=== PATIENT | female | born 1960 | race Caucasian/White ===

== ENCOUNTER → 2017-09-29 08:12 | Outpatient (CLI) | payer BC, SELFPAY ==
--- NOTE | 2017-09-29 08:14 | HPBI_ITS ---
MAMMOGRAPHY - BILATERAL SCREENING 3-D DESMOND SYNTHESIS REASON FOR EXAM: Female, 57 years old. Bilateral Screening 3-D tomosynthesis PERTINENT HISTORY: Previous reduction surgery. TECHNIQUE: 2-D mammograms and 3-D Desmond synthesis of the breast (s) were performed. CAD was performed. COMPARISON: 09/21/2016 FINDINGS: The breast composition is composed of scattered fibroglandular density. There is architectural distortion in both breasts and previous reduction surgery. Scattered benign calcifications are seen. No dense spiculated masses or suspicious microcalcifications are identified. No architectural distortion is identified. There is no skin thickening or retraction. There has been no significant change since the prior study. HPBI/SCREENING MAMM (CAD), BILAT IMPRESSION: No mammographic signs of malignancy. Routine yearly mammograms recommended. ASSESSMENT CATEGORY: BIRADS Category 2: Benign. A letter regarding these results will be sent to the patient by the facility within 30 days. FOLLOW UP RECOMMENDATION: Yearly follow up mammogram recommended. (A) Approximately 10% of breast cancers are not detected by mammography. A normal mammogram should not delay biopsy of a clinically suspicious abnormality. Electronically Signed: Cheng Coppola MD at 10:03 EDT , Service support ,
== END ==
PROVIDERS: Visit Provider Nurse Practitioner Women's Health
DX: Z12.31 Encounter for screening mammogram for malignant neoplasm of breast (principal)
CPT/HCPCS: 77063; 77067

== ENCOUNTER → 2017-10-31 07:31 | Outpatient (CLI) | payer BC, SELFPAY ==
[2017-10-31 11:01] LABS: Anion Gap 8 (5-15); BUN 13 mg/dL (7-18); BUN/Creat Ratio 18.5 RATIO (10-20); Calcium,Total 8.8 mg/dL (8.5-10.1); Chloride 99 mmol/L (98-107); Cholesterol 139 mg/dL (200); EST Glomerular Filtration Rate 91 mL/min (>60); Est Glom Filt Rate - Afr Amer 110 mL/min (>60); Glucose 80 mg/dL (74-106); High Density Lipoprotein 66 mg/dL; Potassium 3.6 mmol/L (3.5-5.1); Sodium Level 133 mmol/L (136-145); Thyroid Stim Hormone (TSH) 2.39 uIU/mL (0.358-3.74); Triglycerides 57 mg/dL; Very Low Density Lipoprotein 11 mg/dL (5-40)
== END ==
PROVIDERS: PCP Family Medicine; Visit Provider Nurse Practitioner Adult Health
DX: E78.5 Hyperlipidemia, unspecified (principal); E03.9 Hypothyroidism, unspecified; Z13.1 Encounter for screening for diabetes mellitus
CPT/HCPCS: 36415; 80048; 80061; 84443

== ENCOUNTER → 2018-04-07 07:01 | Outpatient (CLI) | payer BC, SELFPAY ==
[2018-04-07 10:38] LABS: AST(SGOT) 22 U/L (15-37); Alanine Aminotransfer ALT/SGPT 34 U/L (13-56); Alkaline Phosphatase 90 U/L (45-117); Anion Gap 9 (5-15); BUN 18 mg/dL (7-18); BUN/Creat Ratio 26.6 RATIO (10-20); Calcium,Total 9.5 mg/dL (8.5-10.1); Chloride 102 mmol/L (98-107); Cholesterol 188 mg/dL (200); Creatinine, Serum 0.68 mg/dL (0.55-1.02); EST Glomerular Filtration Rate 95 mL/min (>60); Est Glom Filt Rate - Afr Amer 114 mL/min (>60); Glucose 87 mg/dL (74-106); High Density Lipoprotein 76 mg/dL; Lipase 128 U/L (73-393); Potassium 3.9 mmol/L (3.5-5.1); Sodium Level 139 mmol/L (136-145); Thyroid Stim Hormone (TSH) 3.25 uIU/mL (0.358-3.74); Triglycerides 69 mg/dL; Very Low Density Lipoprotein 14 mg/dL (5-40)
== END ==
PROVIDERS: Family Provider Family Medicine; PCP Family Medicine; Referring Provider Family Medicine; Visit Provider Family Medicine
DX: K76.0 Fatty (change of) liver, not elsewhere classified (principal); E78.00 Pure hypercholesterolemia, unspecified; E03.9 Hypothyroidism, unspecified
CPT/HCPCS: 36415; 80053; 80061; 83690; 84443

== ENCOUNTER → 2018-04-08 08:38 | Outpatient (CLI) | payer BC, SELFPAY ==
--- NOTE | 2018-04-08 08:42 | US_ITS ---
STUDY: ABDOMINAL ULTRASOUND - RIGHT UPPER QUADRANT REASON FOR VISIT: Female, 57 years old. Abdominal pain. TECHNIQUE: Ultrasound evaluation of the right upper quadrant was performed with real-time and static rizo-scale imaging. TECHNICAL QUALITY: Adequate. COMPARISON: None. FINDINGS: Liver: The liver measures 12.3 cm. There is normal echogenicity of the liver. The bile ducts are within normal limits. There is hepatic color flow. The direction of portal flow is hepatopetal. There is no demonstrated mass lesion. Gallbladder: Normal distended gallbladder. The gallbladder wall measures 2.0 mm. There is a negative sonographic Carrizales's sign. There is no pericholecystic fluid. There are no gallstones. Common Bile Duct (C.B.D.): The common bile duct measures 3.2 mm. Pancreas: Normal size of the head, body and tail of the pancreas. There is normal echogenicity of the pancreas. There is no demonstrated pancreatic mass or cyst. Right Kidney: Normal size of the right kidney. The right kidney measures 9.8 cm in length. Normal renal cortex. There is a 4 mm calcific density within the right renal cortex. There is no demonstrated renal mass or cyst. There is no right hydronephrosis. US/Abdomen Limited IMPRESSION: 4 mm calcification within the right renal cortex, this may be vascular in nature. No specific sonographic findings to explain abdominal pain. Electronically Signed: Merari Ferguson MD at 16:53 EDT Tel , Service support ,
== END ==
PROVIDERS: Family Provider Family Medicine; PCP Family Medicine; Referring Provider Family Medicine; Visit Provider Family Medicine
DX: K76.0 Fatty (change of) liver, not elsewhere classified (principal)
CPT/HCPCS: 76705

== ENCOUNTER → 2018-05-18 11:27 | Outpatient (CLI) | payer BC, SELFPAY ==
--- NOTE | 2018-05-18 11:35 | RAD_ITS ---
STUDY: X-RAY - ABDOMEN/PELVIS REASON FOR EXAM: Female, 57 years old. Recent colonoscopy. Left-sided abdominal pain after procedure chest since worse. TECHNIQUE: AP supine and upright views of the abdomen and pelvis. COMPARISON: None. FINDINGS: Normal visualized lung bases. There is a large amount of feces throughout the colon without distention. There is no small bowel dilatation. There is no demonstrated free abdominal air. The visualized liver, spleen and kidneys are grossly normal in size and morphology. Normal soft tissue structures. There are diffuse degenerative changes of the visualized lumbar spine. RAD/Abd Inc Decub and/or Erect IMPRESSION: Large amount of colonic feces without obstruction or evidence of free air. Electronically Signed: Yg Richardson DO at 19:20 EST Tel [phone], Service support ,
== END ==
PROVIDERS: Family Provider Family Medicine; PCP Family Medicine; Referring Provider Family Medicine; Visit Provider Family Medicine
DX: R10.12 Left upper quadrant pain (principal)
CPT/HCPCS: 74019

== ENCOUNTER → 2018-10-20 12:51 | Outpatient (CLI) | payer BC, SELFPAY ==
[2018-06-25 14:02] VITALS: BMI 30.5
--- NOTE | 2018-10-20 12:53 | BI_ITS ---
MAMMOGRAPHY - BILATERAL SCREENING REASON FOR EXAM: Female, 58 years old. Routine annual screening examination. PERTINENT HISTORY: Non-contributory. History of bilateral breast reduction surgery. TECHNIQUE: Digital bilateral breast desmond (3D mammographic acquisition) in the CC and MLO projections. 2-D mediolateral oblique (MLO) and craniocaudad (CC) views of both breasts were obtained. CAD: Full Field Digital Mammography with Computer Added Detection was performed. COMPARISON: Comparison is made with prior study from September 29, 2017. FINDINGS: Breast Composition: There are scattered areas of fibroglandular density. There are no dominant masses or suspicious calcifications. Stable benign-appearing bilateral axillary lymph nodes. No other significant abnormalities are identified. There has been no significant change since the prior study. BI/SCREEN MAMM (CAD) W/DESMOND BILAT IMPRESSION: Stable bilateral screening mammogram. Yearly follow-up mammogram recommended. (A) ASSESSMENT CATEGORY: BIRADS Category 2: Benign. A letter regarding these results will be sent to the patient by the facility within 30 days. Approximately 10% of breast cancers are not detected by mammography. A normal mammogram should not delay biopsy of a clinically suspicious abnormality. [id number] Electronically Signed: Oliverio Vela, at 15:49 EDT , Service support ,
== END ==
PROVIDERS: Family Provider Family Medicine; PCP Family Medicine; Referring Provider Obstetrics & Gynecology; Visit Provider Obstetrics & Gynecology
DX: Z12.31 Encounter for screening mammogram for malignant neoplasm of breast (principal)
CPT/HCPCS: 77063; 77067

== ENCOUNTER → 2018-11-18 08:07 | Outpatient (CLI) | payer BC, SELFPAY ==
[2018-06-25 14:02] VITALS: BMI 30.5
[2018-11-18 10:40] LABS: Anion Gap 6 (5-15); BUN 23 mg/dL (7-18); BUN/Creat Ratio 27.6 RATIO (10-20); Calcium,Total 9.1 mg/dL (8.5-10.1); Chloride 99 mmol/L (98-107); Cholesterol 164 mg/dL (200); Creatinine, Serum 0.83 mg/dL (0.55-1.02); EST Glomerular Filtration Rate 74 mL/min (>60); Est Glom Filt Rate - Afr Amer 90 mL/min (>60); Glucose 88 mg/dL (74-106); High Density Lipoprotein 58 mg/dL; Potassium 3.7 mmol/L (3.5-5.1); Sodium Level 134 mmol/L (136-145); Thyroid Stim Hormone (TSH) 2.45 uIU/mL (0.358-3.74); Triglycerides 95 mg/dL; Very Low Density Lipoprotein 19 mg/dL (5-40)
== END ==
PROVIDERS: Family Provider Family Medicine; PCP Family Medicine; Referring Provider Nurse Practitioner Adult Health; Visit Provider Nurse Practitioner Adult Health
DX: E78.00 Pure hypercholesterolemia, unspecified (principal); E03.9 Hypothyroidism, unspecified; Z13.1 Encounter for screening for diabetes mellitus
CPT/HCPCS: 36415; 80048; 80061; 84443

== ENCOUNTER → 2018-11-24 08:00 | Outpatient (CLI) | payer BC, SELFPAY ==
[2018-06-25 14:02] VITALS: BMI 30.5
--- NOTE | 2018-11-24 08:10 | BD_ITS ---
STUDY: DUAL ENERGY X-RAY ABSORPTIOMETRY / DXA REASON FOR EXAM: Female, 58 years old. The patient is postmenopausal. Loss of height. TECHNIQUE: Bone Mineral Density (BMD) measurements of lumbar spine and bilateral hips were obtained. COMPARISON: None. FINDINGS: Lumbar Spine (L1-L4): g/cm2 (1.031) / T-score (-1.1) / Z-score (0.1) Findings are suggestive of osteopenia with a low fracture risk. Left Femur Total: g/cm2 (0.850) / T-score (-1.3) / Z-score (-0.3) Left Femoral Neck: g/cm2 (0.793) / T-score (-1.8) / Z-score (-0.5) Right Femur Total: g/cm2 (0.829) / T-score (-1.4) / Z-score (-0.5) Right Femoral Neck: g/cm2 (0.841) / T-score (-1.4) / Z-score (-0.2) BD/Dexa Bone Density Study IMPRESSION: The patient is considered osteopenic as outlined below according to World Yaw Organization (WHO) criteria with a moderate fracture risk. Reference Information: The T-score is the number of standard deviations above or below the standard which is normal for young adults at their peak bone mineral density. The World Health Organization (WHO) interprets the T-scores as follows: Above -1 Normal bone density Between -1 and -2.5 Osteopenia Equal to / or below -2.5 Osteoporosis As a practical clinical guideline, osteopenia may be graded as follows: Mild -1 through -1.5 Moderate -1.6 through -2.0 Severe -2.1 through -2.4 The Z-score is the number of standard deviations above or below age-matched controls. A Z-score of less than -1.5 would be considered abnormal. References: 1. NIH Osteoporosis and Related Bone Diseases http://www.osteo.org 2. International Society for Clinical Densitometry http://www.iscd.org 3. National Osteoporosis Foundation http://www.nof.org Electronically Signed: Oliverio Vela, at 12:42 EDT , Service support ,
== END ==
PROVIDERS: Family Provider Family Medicine; PCP Family Medicine; Referring Provider Nurse Practitioner Adult Health; Visit Provider Nurse Practitioner Adult Health
DX: Z78.0 Asymptomatic menopausal state (principal)
CPT/HCPCS: 77080

== ENCOUNTER → 2019-11-01 10:36 | Outpatient (CLI) | payer OTHER, SELFPAY ==
[2018-06-25 14:02] VITALS: BMI 30.5
--- NOTE | 2019-11-01 10:37 | BI_ITS ---
MAMMOGRAPHY - BILATERAL SCREENING REASON FOR EXAM: Female, 59 years old. Routine annual screening examination. PERTINENT HISTORY: Non-contributory. History of bilateral breast reduction surgery. TECHNIQUE: Digital bilateral breast desmond (3D mammographic acquisition) in the CC and MLO projections. 2-D mediolateral oblique (MLO) and craniocaudad (CC) views of both breasts were obtained. CAD: Full Field Digital Mammography with Computer Added Detection was performed. COMPARISON: Comparison is made with prior study dated October 20, 2018 and September 29, 2017. FINDINGS: Breast Composition: There are scattered areas of fibroglandular density. There are no dominant masses or suspicious calcifications. No other significant abnormalities are identified. There has been no significant change since the prior study. BI/SCREEN MAMM (CAD) W/DESMOND BILAT IMPRESSION: Stable bilateral screening mammogram. Yearly follow-up mammogram recommended. (A) ASSESSMENT CATEGORY: BIRADS Category 1: Negative. A letter regarding these results will be sent to the patient by the facility within 30 days. Approximately 10% of breast cancers are not detected by mammography. A normal mammogram should not delay biopsy of a clinically suspicious abnormality. [id number] Electronically Signed: Oliverio Vela, at 11:36 EDT , Service support ,
== END ==
PROVIDERS: PCP Family Medicine; Referring Provider Obstetrics & Gynecology; Visit Provider Obstetrics & Gynecology
DX: Z12.31 Encounter for screening mammogram for malignant neoplasm of breast (principal)
CPT/HCPCS: 77063; 77067

== ENCOUNTER → 2019-11-22 09:55 | Outpatient (CLI) | payer OTHER, SELFPAY ==
[2018-06-25 14:02] VITALS: BMI 30.5
[2019-11-22 12:53] LABS: Anion Gap 10 (5-15); BUN 24 mg/dL (7-18); BUN/Creat Ratio 31.8 RATIO (10-20); Calcium,Total 9.3 mg/dL (8.5-10.1); Chloride 100 mmol/L (98-107); Cholesterol 217 mg/dL (200); Creatinine, Serum 0.76 mg/dL (0.55-1.02); EST Glomerular Filtration Rate 83 mL/min (>60); Est Glom Filt Rate - Afr Amer 100 mL/min (>60); Glucose 87 mg/dL (74-106); High Density Lipoprotein 77 mg/dL; Magnesium 2.3 mg/dL (1.6-2.6); Sodium Level 137 mmol/L (136-145); Thyroid Stim Hormone (TSH) 1.32 uIU/mL (0.358-3.74); Triglycerides 74 mg/dL; Very Low Density Lipoprotein 15 mg/dL (5-40)
== END ==
PROVIDERS: Nurse Practitioner Adult Health; PCP Family Medicine; Visit Provider Family Medicine
DX: E03.9 Hypothyroidism, unspecified (principal); E83.42 Hypomagnesemia; Z13.220 Encounter for screening for lipoid disorders; Z13.1 Encounter for screening for diabetes mellitus
CPT/HCPCS: 36415; 80048; 80061; 83735; 84443

== ENCOUNTER → 2020-06-22 12:36 | Outpatient (CLI) | payer OTHER, SELFPAY ==
[2020-06-22 10:04] VITALS: BMI 27.5
[2020-06-26 20:49] LABS: HPV APTIMA, High Risk Negative (Negative)
== END ==
PROVIDERS: PCP Family Medicine; Visit Provider Nurse Practitioner Women's Health
DX: Z12.4 Encounter for screening for malignant neoplasm of cervix (principal)
CPT/HCPCS: 87624; 88175; G0145

== ENCOUNTER → 2020-11-30 11:57 | Outpatient (CLI) | payer OTHER, SELFPAY ==
[2020-06-22 10:04] VITALS: BMI 27.5
--- NOTE | 2020-11-30 12:00 | BI_ITS ---
MAMMOGRAPHY - BILATERAL SCREENING REASON FOR EXAM: Female, 60 years old. Routine annual screening examination. PERTINENT HISTORY: Non-contributory. History of prior bilateral breast reduction and breast lift surgery. TECHNIQUE: Digital bilateral breast desmond (3D mammographic acquisition) in the CC and MLO projections. 2-D mediolateral oblique (MLO) and craniocaudad (CC) views of both breasts were obtained. CAD: Full Field Digital Mammography with Computer Added Detection was performed. COMPARISON: Comparison is made with prior study dated 11/01/2019 and 10/20/2018. FINDINGS: Breast Composition: There are scattered areas of fibroglandular density. There are no dominant masses or suspicious calcifications. No other significant abnormalities are identified. There has been no significant change since the prior study. BI/SCRN MAMM (CAD)W/DESMOND BILAT IMPRESSION: Stable bilateral screening mammogram. Yearly follow-up mammogram recommended. (A) ASSESSMENT CATEGORY: BIRADS Category 1: Negative. A letter regarding these results will be sent to the patient by the facility within 30 days. Approximately 10% of breast cancers are not detected by mammography. A normal mammogram should not delay biopsy of a clinically suspicious abnormality. [id number] Electronically Signed: Oliverio Vela MD at 13:15 EDT , Service support ,
[2020-11-30 17:51] LABS: Hemoglobin A1c 5.2 % (3.8-5.6)
[2020-11-30 18:00] LABS: Cholesterol 166 mg/dL (200); High Density Lipoprotein 80 mg/dL; T4 Free Direct 1.45 ng/dL (0.76-1.46); Triglycerides 65 mg/dL; Very Low Density Lipoprotein 13 mg/dL (5-40)
== END ==
PROVIDERS: Nurse Practitioner Family; PCP Family Medicine; Referring Provider Nurse Practitioner Women's Health; Visit Provider Nurse Practitioner Women's Health
DX: Z12.31 Encounter for screening mammogram for malignant neoplasm of breast (principal); Z13.1 Encounter for screening for diabetes mellitus; E03.9 Hypothyroidism, unspecified; E78.00 Pure hypercholesterolemia, unspecified
CPT/HCPCS: 36415; 77063; 77067; 80061; 83036; 84439; 84443

== ENCOUNTER → 2021-12-04 | Outpatient (CLI) | payer OTHER, SELFPAY ==
--- NOTE | 2021-12-04 10:21 | BI_ITS ---
MAMMOGRAPHY - BILATERAL SCREENING REASON FOR EXAM: Female, 61 years old. Routine annual screening examination. PERTINENT HISTORY: Non-contributory. History of prior bilateral breast reduction surgery. TECHNIQUE: Digital bilateral breast desmond (3D mammographic acquisition) in the CC and MLO projections. 2-D mediolateral oblique (MLO) and craniocaudad (CC) views of both breasts were obtained. CAD: Full Field Digital Mammography with Computer Added Detection was performed. COMPARISON: Comparison is made with prior study of 11/30/2020 and 11/01/2019. FINDINGS: Breast Composition: There are scattered areas of fibroglandular density. There are no dominant masses or suspicious calcifications. Stable small benign-appearing bilateral axillary lymph nodes. No other significant abnormalities are identified. There has been no significant change since the prior study. BI/SCRN MAMM (CAD)W/DESMOND BILAT IMPRESSION: Stable bilateral screening mammogram. Yearly follow-up mammogram recommended. (A) ASSESSMENT CATEGORY: BIRADS Category 2: Benign. A letter regarding these results will be sent to the patient by the facility within 30 days. Approximately 10% of breast cancers are not detected by mammography. A normal mammogram should not delay biopsy of a clinically suspicious abnormality. [id number] Electronically Signed: Oliverio Vela MD at 11:48 EDT ,
== END | disposition home or self-care (01) ==
LOC: OPBI 10:20
PROVIDERS: PCP Family Medicine; Visit Provider Obstetrics & Gynecology
DX: Z12.31 Encounter for screening mammogram for malignant neoplasm of breast (principal)
CPT/HCPCS: 77063; 77067

== ENCOUNTER → 2021-12-06 | Outpatient (CLI) | payer OTHER, SELFPAY ==
[2021-12-06 11:56] LABS: Bacteria 0 SEEN /hpf (None Seen); Mucous, Urine 0 SEEN /hpf (<or=2+); Red Blood Cells-Urine 0 SEEN /hpf (0-5); Squamous Epithelial Cells - UA 0 SEEN /hpf (5-10)
[2021-12-06 14:17] LABS: Anion Gap 6 (5-15); BUN 22 mg/dL (7-18); BUN/Creat Ratio 24.6 RATIO (10-20); Calcium,Total 9.2 mg/dL (8.5-10.1); Chloride 104 mmol/L (98-107); Cholesterol 222 mg/dL (200); EST Glomerular Filtration Rate 68 mL/min (>60); Est Glom Filt Rate - Afr Amer 82 mL/min (>60); Glucose 83 mg/dL (74-106); High Density Lipoprotein 84 mg/dL; Sodium Level 137 mmol/L (136-145); T4 Free Direct 1.15 ng/dL (0.76-1.46); Thyroid Stim Hormone (TSH) 1.15 uIU/mL (0.358-3.74); Triglycerides 90 mg/dL; Very Low Density Lipoprotein 18 mg/dL (5-40)
[2021-12-06 15:53] LABS: Color, Urine Yellow (Yellow); Glucose, Dipstick Normal (Normal); Ketone-Dipstick Negative (Negative); Leukocyte Esterase-Dipstick 500 /ul (Negative); Nitrite-Dipstick Negative (Negative); Occult Blood-Urine Negative /ul (Negative); Protein-Dipstick Negative (Negative); Specific Gravity, Urine 1.005 (1.002-1.030); Urine Bilirubin Dipstick Negative (Negative); Urine Clarity Clear (Clear); Urine Urobilinogen Normal (Normal)
[2021-12-06 16:14] LABS: White Blood Cells 0-5 SEEN /hpf (0-5)
== END | disposition home or self-care (01) ==
LOC: MFPLAB 11:07
PROVIDERS: PCP Family Medicine; Visit Provider Nurse Practitioner Family
DX: R35.0 Frequency of micturition (principal); I10 Essential (primary) hypertension; E78.00 Pure hypercholesterolemia, unspecified; E03.9 Hypothyroidism, unspecified
CPT/HCPCS: 36415; 80048; 80061; 81001; 84439; 84443; 87086; 87088

== ENCOUNTER → 2022-05-03 | Outpatient (CLI) | payer OTHER, SELFPAY | END | disposition home or self-care (01) | PROVIDERS: PCP Family Medicine; Visit Provider Otolaryngology | DX: J32.9 Chronic sinusitis, unspecified (principal) | CPT/HCPCS: 87070; 87077; 87205 ==

== ENCOUNTER → 2022-11-11 | Outpatient (CLI) | payer OTHER, SELFPAY ==
[2022-11-19 15:08] LABS: HPV APTIMA, High Risk Negative (Negative)
== END | disposition home or self-care (01) ==
LOC: LABSPEC 16:58
PROVIDERS: PCP Family Medicine; Referring Provider Nurse Practitioner Women's Health; Visit Provider Nurse Practitioner Women's Health
DX: Z01.419 Encounter for gynecological examination (general) (routine) without abnormal findings (principal)
CPT/HCPCS: 87624; 88175; G0145

== ENCOUNTER → 2022-12-05 | Outpatient (CLI) | payer OTHER, SELFPAY ==
--- NOTE | 2022-12-05 10:45 | BI_ITS ---
MAMMOGRAPHY - BILATERAL SCREENING REASON FOR EXAM: Female, 62 years old. Routine annual screening examination. PERTINENT HISTORY: Non-contributory. History of prior bilateral breast reduction surgery. TECHNIQUE: Digital bilateral breast desmond (3D mammographic acquisition) in the CC and MLO projections. 2-D mediolateral oblique (MLO) and craniocaudad (CC) views of both breasts were obtained. CAD: Full Field Digital Mammography with Computer Added Detection was performed. COMPARISON: Comparison is made with prior examination of December 04, 2021 and November 30, 2020. FINDINGS: Breast Composition: There are scattered areas of fibroglandular density. There are no dominant masses or suspicious calcifications. No other significant abnormalities are identified. There has been no significant change since the prior study. BI/SCRN MAMM (CAD)W/DESMOND BILAT IMPRESSION: Stable bilateral screening mammogram. Yearly follow-up mammogram recommended. (A) ASSESSMENT CATEGORY: BIRADS Category 1: Negative. A letter regarding these results will be sent to the patient by the facility within 30 days. Approximately 10% of breast cancers are not detected by mammography. A normal mammogram should not delay biopsy of a clinically suspicious abnormality. [id number] Electronically Signed: Oliverio Vela MD at 12:01 EDT ,
== END | disposition home or self-care (01) ==
PROVIDERS: PCP Family Medicine; Referring Provider Nurse Practitioner Women's Health; Visit Provider Nurse Practitioner Women's Health
DX: Z12.31 Encounter for screening mammogram for malignant neoplasm of breast (principal)
CPT/HCPCS: 77063; 77067

== ENCOUNTER → 2022-12-13 | Outpatient (CLI) | payer OTHER, SELFPAY ==
[2022-12-13 15:38] LABS: Hematocrit 43.8 % (37-47); Hemoglobin 14.2 g/dL (12.0-15.0); Mean Corp Hgb Conc 32.4 g/dL (32-36); Mean Corpuscular Hgb 29.3 pg (27.0-32.0); Mean Corpuscular Volume 90.5 fL (81-99); Mean Platelet Vol. 12.9 fl (6.2-12.0); Platelet Count 356 K/mm3 (150-450); RBC Distribution Width CV 14.2 % (11.6-14.6); RBC Distribution Width SD 47.1 fl (35.1-43.9); Red Blood Count 4.84 M/mm3 (4.2-5.4); White Blood Count 7.3 K/mm3 (4.4-11.0)
[2022-12-13 16:12] LABS: Anion Gap 7 (5-15); BUN 20 mg/dL (7-18); BUN/Creat Ratio 25.2 RATIO (10-20); Calcium,Total 9.5 mg/dL (8.5-10.1); Chloride 98 mmol/L (98-107); Cholesterol 205 mg/dL (200); EST Glomerular Filtration Rate 77 mL/min (>60); Est Glom Filt Rate - Afr Amer 93 mL/min (>60); Free T3 2.8 pg/mL (2.18-3.98); Glucose 84 mg/dL (74-106); High Density Lipoprotein 82 mg/dL; Potassium 4.1 mmol/L (3.5-5.1); Sodium Level 132 mmol/L (136-145); T4 Free Direct 1.24 ng/dL (0.76-1.46); Thyroid Stim Hormone (TSH) 1.34 uIU/mL (0.358-3.74); Triglycerides 64 mg/dL; Very Low Density Lipoprotein 13 mg/dL (5-40)
[2022-12-13 16:29] LABS: Microalbumin,Random Urine < 5.0 mg/L (NO RANGE EST.)
[2022-12-13 17:21] LABS: Hemoglobin A1c 5.5 % (3.8-5.6)
== END | disposition home or self-care (01) ==
LOC: MFPLAB 12:00
PROVIDERS: PCP Family Medicine; Visit Provider Family Medicine
DX: I10 Essential (primary) hypertension (principal); E66.9 Obesity, unspecified; E03.9 Hypothyroidism, unspecified; E78.5 Hyperlipidemia, unspecified
CPT/HCPCS: 36415; 80048; 80061; 82043; 82570; 83036; 84439; 84443; 84481; 85027

== ENCOUNTER → 2023-03-13 | Outpatient (CLI) | payer OTHER, SELFPAY ==
[2023-03-13 12:55] LABS: Anion Gap 6 (5-15); BUN 17 mg/dL (7-18); BUN/Creat Ratio 20.2 RATIO (10-20); Chloride 102 mmol/L (98-107); Creatinine, Serum 0.84 mg/dL (0.55-1.02); EST Glomerular Filtration Rate 72 mL/min (>60); Est Glom Filt Rate - Afr Amer 88 mL/min (>60); Glucose 91 mg/dL (74-106); Potassium 3.9 mmol/L (3.5-5.1); Sodium Level 134 mmol/L (136-145)
== END | disposition home or self-care (01) ==
LOC: MTLAB 10:03
PROVIDERS: PCP Family Medicine; Visit Provider Family Medicine
DX: K76.0 Fatty (change of) liver, not elsewhere classified (principal)
CPT/HCPCS: 36415; 80048

== ENCOUNTER → 2023-06-19 | Outpatient (CLI) | payer MEDICARE, OTHER, SELFPAY ==
[2023-06-19 16:00] LABS: Osmolality, Serum 298 mOsm/KG (280-301)
[2023-06-19 16:19] LABS: Anion Gap 5 (5-15); BUN 24 mg/dL (7-18); BUN/Creat Ratio 27.2 RATIO (10-20); Calcium,Total 9.5 mg/dL (8.5-10.1); Chloride 102 mmol/L (98-107); Creatinine, Serum 0.88 mg/dL (0.55-1.02); EST Glomerular Filtration Rate 68 mL/min (>60); Est Glom Filt Rate - Afr Amer 83 mL/min (>60); Free T3 3.5 pg/mL (2.18-3.98); Glucose 80 mg/dL (74-106); Magnesium 2.6 mg/dL (1.6-2.6); Potassium 4.4 mmol/L (3.5-5.1); Sodium Level 135 mmol/L (136-145); T4 Free Direct 1.35 ng/dL (0.76-1.46); Thyroid Stim Hormone (TSH) 0.99 uIU/mL (0.358-3.74)
== END | disposition home or self-care (01) ==
LOC: MFPLAB 11:39
PROVIDERS: PCP Family Medicine; Visit Provider Family Medicine
DX: E87.1 Hypo-osmolality and hyponatremia (principal); E03.9 Hypothyroidism, unspecified; I10 Essential (primary) hypertension; R63.5 Abnormal weight gain
CPT/HCPCS: 36415; 80048; 82533; 82627; 83735; 83930; 84439; 84443; 84481; 82626

== ENCOUNTER → 2023-12-25 | Outpatient (CLI) | payer MEDICARE, OTHER, SELFPAY ==
--- NOTE | 2023-12-25 10:04 | BI_ITS ---
MAMMOGRAPHY - BILATERAL SCREENING REASON FOR EXAM: Female, 63 years old. Routine annual screening examination. PERTINENT HISTORY: Sister with breast cancer. History of prior bilateral breast reduction surgery. TECHNIQUE: Digital bilateral breast desmond (3D mammographic acquisition) in the CC and MLO projections. 2-D mediolateral oblique (MLO) and craniocaudad (CC) views of both breasts were obtained. CAD: Full Field Digital Mammography with Computer Added Detection was performed. COMPARISON: Comparison is made with prior study dated December 05, 2022 and December 04, 2021. FINDINGS: Breast Composition: There are scattered areas of fibroglandular density. There are no dominant masses or suspicious calcifications. Stable small benign-appearing lateral axillary lymph nodes. No other significant abnormalities are identified. There has been no significant change since the prior study. BI/SCRN MAMM (CAD)W/DESMOND BILAT IMPRESSION: Stable bilateral screening mammogram. Yearly follow-up mammogram recommended. (A) ASSESSMENT CATEGORY: BIRADS Category 2: Benign. A letter regarding these results will be sent to the patient by the facility within 30 days. Approximately 10% of breast cancers are not detected by mammography. A normal mammogram should not delay biopsy of a clinically suspicious abnormality. [id number] Electronically Signed: Oliverio Vela MD at 10:48 EDT ,
== END | disposition home or self-care (01) ==
LOC: OPBI 10:04
PROVIDERS: PCP Family Medicine; Referring Provider Nurse Practitioner Women's Health; Visit Provider Nurse Practitioner Women's Health
DX: Z12.31 Encounter for screening mammogram for malignant neoplasm of breast (principal); Z80.3 Family history of malignant neoplasm of breast
CPT/HCPCS: 77063; 77067

== ENCOUNTER → 2024-01-15 | Outpatient (CLI) | payer MEDICARE, OTHER, SELFPAY ==
--- NOTE | 2024-01-15 16:30 | RAD_ITS ---
STUDY: X-RAY - PELVIS AND LEFT HIP REASON FOR EXAM: Female, 63 years old. pain left hip TECHNIQUE: 3 views of the pelvis and hip. COMPARISON: None. FINDINGS: There is a non-specific bowel gas pattern. Normal visualized soft tissue structures. Markedly abnormal left hip where there is irregularity and fracturing of the superolateral left femoral head with collapse, consistent with AVN. There is loss of joint space. There are secondary degenerative changes. Normal bilateral iliac wings, sacroiliac joints and visualized sacrum. Normal bilateral superior and inferior pubic rami. Normal pubic symphysis. Normal bilateral ischial tuberosities. Right hip is unremarkable. RAD/HIP, UNI W/ Pelvis 2-3 Views IMPRESSION: Abnormal left hip suspicious for AVN. MRI recommended. Electronically Signed: Franky Steward MD at 21:58 EDT ,
[2024-01-15 18:04] LABS: Anion Gap 9 (5-15); BUN 43 mg/dL (7-18); BUN/Creat Ratio 42.6 RATIO (10-20); Calcium,Total 9.6 mg/dL (8.5-10.1); Chloride 105 mmol/L (98-107); Creatinine, Serum 1.01 mg/dL (0.55-1.02); EST Glomerular Filtration Rate 58 mL/min (>60); Est Glom Filt Rate - Afr Amer 71 mL/min (>60); Glucose 87 mg/dL (74-106); Potassium 4.5 mmol/L (3.5-5.1); Sodium Level 134 mmol/L (136-145)
[2024-01-15 18:14] LABS: Microalbumin,Random Urine < 5.0 mg/L (NO RANGE EST.)
== END | disposition home or self-care (01) ==
PROVIDERS: PCP Family Medicine; Referring Provider Family Medicine; Visit Provider Family Medicine
DX: I10 Essential (primary) hypertension (principal); M16.12 Unilateral primary osteoarthritis, left hip
CPT/HCPCS: 36415; 73502; 80048; 82043; 82570

== ENCOUNTER → 2024-01-30 | Outpatient (CLI) | payer MEDICARE, OTHER, SELFPAY ==
--- NOTE | 2024-01-30 06:50 | MRI_ITS ---
EXAM: MR LEFT LOWER EXTREMITY WITHOUT INTRAVENOUS CONTRAST, HIP CLINICAL INDICATION: Avascular Necrosis, abnormal xray TECHNIQUE: Multiplanar and multisequence MR images of the left hip without intravenous contrast. COMPARISON: No relevant prior studies available. FINDINGS: TENDONS: FLEXORS: Unremarkable. Intact. EXTENSORS/HAMSTRING: Unremarkable. Intact. ABDUCTORS: Unremarkable. Intact. ADDUCTORS: Unremarkable. Intact. ROTATORS: Unremarkable. Intact. MUSCLES: Unremarkable. Normal bulk and signal. FLUID: Unremarkable. No joint effusion. No trochanteric bursitis. LABRUM: Signal alteration at the anterosuperior labrum potentially representing a labral tear. CARTILAGE: Complex T2 hyperintense and potentially cystic lesion involving the anterior left acetabular roof. There is adjacent marrow edema. This could be fibrous or chondroid in composition also. This does not appear aggressive. BONES/JOINTS: Small amount of hip joint fluid bilaterally with synovitis and a left-sided. Irregularity at the left femoral head with adjacent marrow edema may be degenerative or traumatic/microtraumatic in nature but in any case appears to be chronic. Multilevel spine degenerative changes. OTHER SOFT TISSUES: Unremarkable. MRI/Lower Ext Joint Only (Routine) IMPRESSION: 1. Complex T2 hyperintense and potentially cystic lesion involving the anterior left acetabular roof. There is adjacent marrow edema. This could be fibrous or chondroid in composition also. This does not appear aggressive. Follow-up IV contrast enhanced evaluation would be useful to exclude enhancement such as can be seen with a neoplasm. 2. Signal alteration at the anterosuperior labrum potentially representing a labral tear. This can be further assessed with MR arthrography. 3. Small left hip joint effusion with synovitis. Electronically Signed: David Kingsley MD at 22:00 EDT ,
== END | disposition home or self-care (01) ==
LOC: MRI 06:18
PROVIDERS: PCP Family Medicine; Referring Provider Family Medicine; Visit Provider Family Medicine
DX: M87.052 Idiopathic aseptic necrosis of left femur (principal)
CPT/HCPCS: 73721

== ENCOUNTER → 2024-02-05 | Outpatient (CLI) | payer MEDICARE, OTHER, SELFPAY ==
--- NOTE | 2024-02-05 10:17 | BD_ITS ---
STUDY: DUAL ENERGY X-RAY ABSORPTIOMETRY / DXA REASON FOR EXAM: Female, 63 years old. [id number] TECHNIQUE: Bone Mineral Density (BMD) measurements of lumbar spine and bilateral hips were obtained. COMPARISON: Comparison is made with prior study dated November 24, 2018. FINDINGS: Lumbar Spine (L1-L4): g/cm2 (0.910) / T-score (-1.0) / Z-score (0.8) Findings are suggestive of normal bone density with a low fracture risk. Left Femur Total: g/cm2 (0.759) / T-score (-1.5) / Z-score (-0.2) Left Femoral Neck: g/cm2 (0.683) / T-score (-1.5) / Z-score (0.0) Right Femur Total: g/cm2 (0.701) / T-score (-2.0) / Z-score (-0.7) Right Femoral Neck: g/cm2 (0.584) / T-score (-2.4) / Z-score (-0.8) The T-Scores on the most recent prior examination were: Lumbar Spine (L1-L4): There has been worsening of bone density since the previous examination. Left Femur Total: which represents a worsening of 3.7%. Right Femur Total: which represents a worsening of 8.7%. BD/Dexa Bone Density Study IMPRESSION: The patient is considered osteopenic as outlined below according to World Yaw Organization (WHO) criteria with a high fracture risk. There has been worsening of bone density since the previous examination. Reference Information: The T-score is the number of standard deviations above or below the standard which is normal for young adults at their peak bone mineral density. The World Health Organization (WHO) interprets the T-scores as follows: Above -1 Normal bone density Between -1 and -2.5 Osteopenia Equal to / or below -2.5 Osteoporosis As a practical clinical guideline, osteopenia may be graded as follows: Mild -1 through -1.5 Moderate -1.6 through -2.0 Severe -2.1 through -2.4 The Z-score is the number of standard deviations above or below age-matched controls. A Z-score of less than -1.5 would be considered abnormal. References: 1. NIH Osteoporosis and Related Bone Diseases www osteo.org 2. International Society for Clinical Densitometry www iscd.org 3. National Osteoporosis Foundation www nof.org Electronically Signed: Oliverio Vela MD at 15:05 EDT ,
== END | disposition home or self-care (01) ==
PROVIDERS: PCP Family Medicine; Referring Provider Family Medicine; Visit Provider Family Medicine
DX: N95.9 Unspecified menopausal and perimenopausal disorder (principal)
CPT/HCPCS: 77080

== ENCOUNTER → 2024-03-01 | Outpatient (CLI) | payer MEDICARE, OTHER, SELFPAY ==
--- NOTE | 2024-03-01 09:00 | EKG12_ITS ---
Test Reason : PRE OP Blood Pressure : / mmHG Vent. Rate : 070 BPM Atrial Rate : 070 BPM P-R Int : 166 ms QRS Dur : 074 ms QT Int : 382 ms P-R-T Axes : 065 040 058 degrees QTc Int : 412 ms Normal sinus rhythm Normal ECG Confirmed by Santosh Petit ([id number]), research editor PARK CONTRERAS ([id number]) on 03/01/2024 10:25:39 AM Referred By: Rudy Jaimes Confirmed By:Santosh Petit
[2024-03-01 10:42] LABS: Creatinine, Serum 0.91 mg/dL (0.55-1.02); EST Glomerular Filtration Rate 66 mL/min (>60); Est Glom Filt Rate - Afr Amer 80 mL/min (>60)
== END | disposition home or self-care (01) ==
LOC: PSN 08:59
PROVIDERS: PCP Family Medicine; Referring Provider Specialist; Visit Provider Specialist
DX: Z01.818 Encounter for other preprocedural examination (principal); Z01.810 Encounter for preprocedural cardiovascular examination; N28.9 Disorder of kidney and ureter, unspecified
CPT/HCPCS: 36415; 82565; 93005

== ENCOUNTER → 2024-03-10 | Outpatient (CLI) | payer MEDICARE, OTHER, SELFPAY ==
--- NOTE | 2024-03-10 10:24 | MRI_ITS ---
STUDY: MRI LEFT HIP, WITHOUT AND WITH IV CONTRAST REASON FOR EXAM: Female, 63 years old. PAIN, F/U CYST TECHNIQUE: Standardized fat and water weighted pulse sequences were obtained in all 3 orthogonal planes. Following the intravenous administration of 15 cc Clariscan contrast, additional postcontrast imaging was obtained. COMPARISON: Left hip MRI dated 01/30/2024. FINDINGS: There is unchanged degenerative arthrosis of the left hip joint with joint space narrowing, marginal osteophyte formation, and chronic deformity of the superolateral aspect of the left femoral head. Again seen is a 2.0 cm subchondral cyst in the left anterior-superior acetabulum, with thin peripheral enhancement following IV contrast administration (coronal postcontrast T1 series 12 images 12-13), compatible with a benign degenerative cyst. There is a persistent tiny left hip joint effusion. There is a suspected left anterior acetabular labrum tear, with adjacent 3 mm paralabral cyst (sagittal PD series 8 images 8-9). Normal gluteus minimus, medius and iliopsoas tendons and distal insertions. There is no trochanteric, iliopsoas or iliopectineal bursitis. Normal superior and inferior pubic rami. Normal pubic symphysis. Normal ischial tuberosity. Normal origin of the hamstring tendons. Normal visualized iliac wing, sacroiliac joint, and sacral ala. Normal visualized soft tissue structures of the pelvis. There is degenerative disc disease in the visualized lumbosacral spine. There is no abnormal enhancing lesion. MRI/Lower Ext Joint Only W/WO Cont IMPRESSION: Unchanged degenerative arthrosis of the left hip joint. 2.0 cm benign degenerative cyst in the left anterior-superior acetabulum. Persistent tiny left hip joint effusion. Suspected left anterior acetabular labral tear, with adjacent 3 mm paralabral cyst. No abnormal enhancing lesion. Electronically Signed: Mikel August MD at 13:57 EDT ,
== END | disposition home or self-care (01) ==
PROVIDERS: PCP Family Medicine; Referring Provider Specialist; Visit Provider Specialist
DX: M25.552 Pain in left hip (principal); M16.12 Unilateral primary osteoarthritis, left hip; M85.80 Other specified disorders of bone density and structure, unspecified site
CPT/HCPCS: 73723; A9575

== ENCOUNTER → 2024-05-03 | Outpatient (CLI) | payer MEDICARE, OTHER, SELFPAY ==
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
[2024-05-03 18:35] LABS: AST(SGOT) 22 U/L (15-37); Alanine Aminotransfer ALT/SGPT 43 U/L (13-56)
== END | disposition home or self-care (01) ==
LOC: MTLAB 14:27
PROVIDERS: PCP Family Medicine; Referring Provider Podiatrist; Visit Provider Podiatrist
DX: B35.1 Tinea unguium (principal)
CPT/HCPCS: 36415; 84450; 84460

== ENCOUNTER → 2024-06-14 | Outpatient (CLI) | payer MEDICARE, OTHER, SELFPAY ==
[2024-06-14 17:56] LABS: AST(SGOT) 24 U/L (15-37); Alanine Aminotransfer ALT/SGPT 43 U/L (13-56)
== END | disposition home or self-care (01) ==
LOC: MTLAB 14:31
PROVIDERS: PCP Family Medicine; Referring Provider Podiatrist; Visit Provider Podiatrist
DX: B35.1 Tinea unguium (principal)
CPT/HCPCS: 36415; 84450; 84460

== ENCOUNTER → 2024-07-19 | Outpatient (CLI) | payer MEDICARE, OTHER, SELFPAY ==
[2024-07-19 19:08] LABS: ALB/GLOB Ratio 1.1 RATIO (0.9-2.4); AST(SGOT) 28 U/L (15-37); Alanine Aminotransfer ALT/SGPT 46 U/L (13-56); Albumin, Serum 4.3 g/dL (3.2-5.0); Alkaline Phosphatase 107 U/L (45-117); Anion Gap 8 (5-15); BUN 27 mg/dL (7-18); BUN/Creat Ratio 34.2 RATIO (10-20); Calcium,Total 9.6 mg/dL (8.5-10.1); Chloride 102 mmol/L (98-107); Creatinine, Serum 0.79 mg/dL (0.55-1.02); EST Glomerular Filtration Rate 78 mL/min (>60); Est Glom Filt Rate - Afr Amer 94 mL/min (>60); Glucose 70 mg/dL (74-106); Potassium 4.2 mmol/L (3.5-5.1); Protein, Total 8.3 g/dL (6.4-8.2); Sodium Level 133 mmol/L (136-145)
[2024-07-19 19:10] LABS: Microalbumin,Random Urine 6.2 mg/L (NO RANGE EST.); Microalbumin:Creatinine Ratio 19.5 mg/g CRE (<30 mg/g CRE)
[2024-07-19 23:02] LABS: Hematocrit 45.8 % (37-47); Hemoglobin 14.2 g/dL (12.0-15.0); Mean Corpuscular Volume 90.3 fL (81-99); Mean Platelet Vol. 12.3 fl (6.2-12.0); Platelet Count 322 K/mm3 (150-450); RBC Distribution Width CV 13.5 % (11.6-14.6); RBC Distribution Width SD 45.1 fl (35.1-43.9); Red Blood Count 5.07 M/mm3 (4.2-5.4); White Blood Count 7.6 K/mm3 (4.4-11.0)
[2024-07-21 13:07] LABS: GGTP 25 IU/L (0-60)
== END | disposition home or self-care (01) ==
LOC: MFPLAB 14:33
PROVIDERS: PCP Family Medicine; Referring Provider Family Medicine; Visit Provider Family Medicine
DX: I10 Essential (primary) hypertension (principal); E03.9 Hypothyroidism, unspecified; K76.0 Fatty (change of) liver, not elsewhere classified

== ENCOUNTER → 2024-08-05 | Outpatient (CLI) | payer MEDICARE, OTHER, SELFPAY ==
[2024-08-05 15:57] LABS: Ferritin 53 ng/mL (8-252)
[2024-08-05 21:03] LABS: Vitamin B12 388 pg/mL (211-911); Vitamin D,25 Hydroxy 146.3 ng/mL
[2024-08-09 13:07] LABS: Vitamin D 1,25-Dihydroxy 62.9 pg/mL (24.8-81.5)
[2024-08-09 23:06] LABS: Zinc, WHOLE BLOOD 724 ug/dL (440-860)
== END | disposition home or self-care (01) ==
LOC: MTLAB 11:17
PROVIDERS: PCP Family Medicine; Referring Provider Dermatology; Visit Provider Dermatology
DX: L64.8 Other androgenic alopecia (principal); L68.0 Hirsutism
CPT/HCPCS: 36415; 82306; 82607; 82652; 82728; 82746; 84630

== ENCOUNTER → 2024-09-13 | Outpatient (CLI) | payer MEDICARE, OTHER, SELFPAY ==
[2024-09-13 12:50] LABS: Hematocrit 37.6 % (37-47); Hemoglobin 12.5 g/dL (12.0-15.0); Mean Corp Hgb Conc 33.2 g/dL (32-36); Mean Corpuscular Hgb 29.6 pg (27.0-32.0); Mean Corpuscular Volume 89.1 fL (81-99); Mean Platelet Vol. 12.2 fl (6.2-12.0); Platelet Count 435 K/mm3 (150-450); RBC Distribution Width CV 14.6 % (11.6-14.6); RBC Distribution Width SD 46.9 fl (35.1-43.9); Red Blood Count 4.22 M/mm3 (4.2-5.4); White Blood Count 9.9 K/mm3 (4.4-11.0)
[2024-09-13 12:56] LABS: Anion Gap 14 (5-15); BUN 23 mg/dL (4-19); BUN/Creat Ratio 28.5 RATIO (10-20); Calcium,Total 9.3 mg/dL (7.6-11.0); Carbon Dioxide 22.4 mmol/L (21.0-32.0); Chloride 103 mmol/L (98-108); Creatinine, Serum 0.79 mg/dL (0.70-1.20); EST Glomerular Filtration Rate 82 (>60); Glucose 103 mg/dL (70-99); Potassium 4.5 mmol/L (3.3-5.1); Sodium Level 139 mmol/L (133-145)
== END | disposition home or self-care (01) ==
LOC: MTLAB 09:25
PROVIDERS: PCP Family Medicine; Referring Provider Physician Assistant Surgical; Visit Provider Physician Assistant Surgical
DX: D72.828 Other elevated white blood cell count (principal); R74.8 Abnormal levels of other serum enzymes; I10 Essential (primary) hypertension
CPT/HCPCS: 36415; 80048; 85027

== ENCOUNTER 2024-11-03 12:00 | Outpatient (RCR) | payer MEDICARE, OTHER, SELFPAY ==
--- NOTE | 2024-09-13 09:48 | HP.PTEVAL ---
Patient's Visit Information Visit Information Visit Information: KIM MOSQUERA is a 64 year old F referred to Physical Therapy by Calvin Carter PA-C with a diagnosis of R TKA, DOS: 09/07/24. Date of Evaluation: 09/13/24 Physical Therapist: Michael Castano DPT Visit Plan Frequency: 3x /Week Duration: 6 Weeks Plan: 1) ROM progression to 0-0-120deg. 2) decreased edema 3) Work on quad, HS and glute strength 4) gait progression to no AD as able 5) ice/vaso as needed. Subjective Subjective: Pt. is here today for her initial evaluation with diagnosis of R TKA, DOS: 09/07/24. Pt. arrives with use of FWW with good tolerance with walking. No calf pain, no dizziness, no difficulty breathing. Pt. did report some nausea, but reports this occurs with taking her medications. Pt. has been doing her exercises as prescribed. Pt. is sleeping okay. She is icing as prescribed. Pt. is sleeping okay. Pt. has bandage in place and is to remove this weekend. She is hopeful to get back to all recreational activities. Pt. does work out at local gym 4-5 times per week and would like to get back to this as well. She does a lot of aquatic classes. Pain R knee: Pain Intensity (Out of 10): 5 Pain Intensity Range: 3 and 7 Objective Objective: POSTURE: Pt. has good WBing, with symmetrical wt. shifting. Pt. does tend to favor standing with slight lean to L side. PALPATION: negative homans. Pt. has 6 cm difference at mid patella with edema. NEURO: normal sensation and normal achilles DTR. Pt. is able to rise on heels and toes without issues. ROM: R knee: 0-4-88deg. Pt. reports tightness and pain a limiting factor. pt. has normal HS length bilat. MMT: R knee: ext 5#, flexion 8#; hip: flexion 0#, abd 5#. GAIT: Pt. ambulates with FWW with good step length, she does have decreased TKE during stance on RLE and limited knee flexion during swing. Balance/Special Test Scores TUG Test Time Seconds: 29.8 30 Second Chair Rise Test Seconds: 8 WOMAC Total Score: 90 WOMAC Percentatge: 6.2500 Goals Goal 1:: LTG: pt. to be I with HEP. Goal Time Frame: 4-6 Weeks Goal 2:: STG: Pt. to have increased ROM to 0-0-120deg. allowing for increased tolerance to all functional mobility. Goal Time Frame: 2-4 Weeks Goal 3:: LTG: Pt. to have increased RLE strength to symmetrical to L side. Goal Time Frame: 4-6 Weeks Goal 4:: LTG: Pt. to complete TUG with time less than 10sec. Goal Time Frame: 4-6 Weeks Goal 5:: LTG: Pt. to complete 30sec sit to stand rep test with score of at least 15. Goal Time Frame: 6-8 Weeks Goal 6:: LTG: Pt. to ambulate unlimited distances with out AD without increase in R knee pain Goal Time Frame: 6-8 Weeks Rehabilitation Potential Physical Therapy Diagnosis: PT. has signs and symptoms consistent with R TKA DOS: 09/07/24. Pt. has marked hypomobility, weakness, increased pain and difficulty with functional mobility. Pt. would benefit from PT to address the above limitations progressing back to all recreational activities without limitations. Rehabilitation Potential: Excellent Anticipated Interventions Patient/Client Instruction: Educate patient on: Condition, Plan of Care, Risk Factors and Benefits of Fitness Program For the Purpose of:: To improve decision making, To facilitate caregiver knowledge, To improve self management, To prevent re-injury and To improve ability to perform tasks related to life management Therapeutic Exercise to Include: Strength training, Power training, Endurance training, Balance training, Agility training, Body mechanics, Flexibilty training, Gait and locomotor training, Passive ROM and Active ROM For the Purpose of:: To decrease pain, To decrease swelling/inflammation, To increase ROM, To improve nutrient delivery to tissue, To increase oxygenation perfusion, To improve muscle performance and motor function, To improve ability to perform ADL's, To increase tolerance to activity/condition/position, To improve health of tissue, To decrease soft tissue restriction and To increase flexibility/ROM Manual Therapy Techniques to Include: Mobilization, Passive ROM and Soft tissue mobilization For the Purpose of:: To decrease pain, To decrease swelling/inflammation, To increase ROM, To improve nutrient delivery to tissue, To increase oxygenation perfusion, To improve muscle performance and motor function, To decrease soft tissue restriction and To increase flexibility/ROM Cryotherapy (ice pack, ice massage): Yes Vasopneumatic device: Yes For the Purpose of:: To decrease pain, To decrease swelling/inflammation and To increase ROM Text: Thank you for the opportunity to evaluate your patient. For Medicare and Medicare HMO plans, please review the plan of care and approve it. It will need to be FAXED BACK to us at [phone] for Medicare purposes. For Medicare only, by signing this I certify the plan of care. Please let me know if there are questions or concerns regarding this plan of care. Physician Signature: Date:
--- NOTE | 2024-10-11 12:02 | HP.PTREVAL ---
Re-Evaluation Intro: Calvin Carter PA-C, It has been my pleasure to treat KIM MOSQUERA over the last 11 visits for R TKA, DOS: 09/07/24. Please see the progress note below for an update on the physical therapy plan of care! Subjective Subjective: Pt. reports overall being 80% better. Pt. is sleeping well without issues. Pt. reports still having issues with stairs. Pt. reports no pain, but still has stiffness. Objective Objective/Function: ROM: PROM: 0-0-121deg AROM: 0-0-118deg. MMT: LLE: 22.3# ext, flex 22.1#. RLE: ext 15.5#, flex 16.3# GAIT: Pt. ambulates without AD. She does tend to vault on her RLE. this was improved with VCing. STAIRS: Pt. able to complete with reciprocal pattern with 2 HR, heavy use of railings. and increased pain. TU.96 noAD 30sec sit to stand rep test: 13 rep 6 MWT: 1345 feet Plan Plan Plan: 1) continue with end range stretching 2) progressive quad and HS and hip strengthening 3) gait techniques and stair negotiation Balance/Gait/Functional tests Balance/Special Test Scores Lower Extremity Functional Score: 47 TUG Test Time Seconds: 9.96 Tug Test: <10 sec.=free mobile 30 Second Chair Rise Test Seconds: 13 6 Minute Walk Test: 1345 no AD WOMAC Total Score: 90 WOMAC Percentage: 6.2500 Goals Goals Goal 1:: LTG: pt. to be I with HEP. Goal Time Frame: 4-6 Weeks Goal Progress: Progressing Goal 2:: STG: Pt. to have increased ROM to 0-0-120deg. allowing for increased tolerance to all functional mobility. Goal Time Frame: 2-4 Weeks Goal Progress: Progressing Goal 3:: LTG: Pt. to have increased RLE strength to symmetrical to L side. Goal Time Frame: 4-6 Weeks Goal Progress: Progressing Goal 4:: LTG: Pt. to complete TUG with time less than 10sec. Goal Time Frame: 4-6 Weeks Goal Progress: Goal Met Goal 5:: LTG: Pt. to complete 30sec sit to stand rep test with score of at least 15. Goal Time Frame: 6-8 Weeks Goal Progress: Progressing Goal 6:: LTG: Pt. to ambulate unlimited distances with out AD without increase in R knee pain Goal Time Frame: 6-8 Weeks Goal Progress: Progressing Anticipated Interventions Anticipated Interventions Patient/Client Instruction: Educate patient on: Condition, Plan of Care, Risk Factors and Benefits of Fitness Program For the Purpose of:: To improve decision making, To facilitate caregiver knowledge, To improve self management, To prevent re-injury and To improve ability to perform tasks related to life management Therapeutic Exercise to Include: Strength training, Power training, Endurance training, Balance training, Agility training, Body mechanics, Flexibilty training, Gait and locomotor training, Passive ROM and Active ROM For the Purpose of:: To decrease pain, To decrease swelling/inflammation, To increase ROM, To improve nutrient delivery to tissue, To increase oxygenation perfusion, To improve muscle performance and motor function, To improve ability to perform ADL's, To increase tolerance to activity/condition/position, To improve health of tissue, To decrease soft tissue restriction and To increase flexibility/ROM Manual Therapy Techniques to Include: Mobilization, Passive ROM and Soft tissue mobilization For the Purpose of:: To decrease pain, To decrease swelling/inflammation, To increase ROM, To improve nutrient delivery to tissue, To increase oxygenation perfusion, To improve muscle performance and motor function, To decrease soft tissue restriction and To increase flexibility/ROM Cryotherapy (ice pack, ice massage): Yes Vasopneumatic device: Yes For the Purpose of:: To decrease pain, To decrease swelling/inflammation and To increase ROM Re-Evaluation Ending Re-evaluation ending: Please do not hesitate to contact me at [phone] by phone or if you have questions or concerns regarding this new plan of care! Sincerely, Michael Castano DPT
--- NOTE | 2024-11-03 13:04 | HP.PTDCSUM ---
Discharge Summary D/C summary: It has been my pleasure to treat KIM MOSQUERA referred by Calvin Carter PA-C, with the diagnosis of R TKA, DOS: 09/07/24 for a total of 18 visit(s). Discharge Date: 11/03/24 Please see the following information for a summary of their discharge status. Subjective Subjective: Pt. reports being 95% better overall. Pt. reports being I with all exercises. She have more issues with her L hip compared to her R knee. Pt. reports overall being pleased with her R knee. No issues with walking or activities. Pt. reports being compliant with both land and aquatic exercises x6 days per week. Pain R knee: Pain Intensity (Out of 10): 0 Overall Improvement % Improvement: 95 Objective Objective/Function: ROM: R knee 0-0-122deg. MMT: RLE: knee: ext 23.8#, flexion 21.9# LLE: knee ext: 21.9#, flexion 20.9# GAIT: pt. has fairly normal gait pattern. Great R knee ROM, but has slight antalgic motion during L stance phase. STAIRS: fairly normal pattern, but does have some L hip weakness during stance phase. Pt. is overall doing great. she is having some L hip soreness/weakness. She did have a L ODILIA last year, in the late fall. I recommend that she continue to strengthen and progress as tolerated. If not improving she can follow up with physician. Goals Goal 1:: LTG: pt. to be I with HEP. Goal Progress: Goal Met Goal 2:: STG: Pt. to have increased ROM to 0-0-120deg. allowing for increased tolerance to all functional mobility. Goal Progress: Goal Met Goal 3:: LTG: Pt. to have increased RLE strength to symmetrical to L side. Goal Progress: Goal Met Goal 4:: LTG: Pt. to complete TUG with time less than 10sec. Goal Progress: Goal Met Goal 5:: LTG: Pt. to complete 30sec sit to stand rep test with score of at least 15. Goal Progress: Goal Met Goal 6:: LTG: Pt. to ambulate unlimited distances with out AD without increase in R knee pain Goal Progress: Goal Met Plan Plan: Pt. to be DC from PT at this point in time. Pt. is D/C Information Discharge Comments: Pt. has met all goals and will be DC from PT at this point in time. d/c sentence: If there are questions or concerns regarding this patient's physical therapy, please feel free to call me at [phone]. Thank you for the referral of this patient. Sincerely, Michael Castano, DPT Balance/Gait/Functional tests Balance/Special Test Scores Lower Extremity Functional Score: 67 TUG Test Time Seconds: 8.2 Tug Test: <10 sec.=free mobile 30 Second Chair Rise Test Seconds: 16 6 Minute Walk Test: 1391 feet no Ad WOMAC Total Score: 90 WOMAC Percentage: 6.2500 Improvement % Improvement: 95
== END 2024-11-03 19:00 | disposition home or self-care (01) ==
LOC: PT 12:00
PROVIDERS: PCP Family Medicine; Referring Provider Physician Assistant Surgical; Visit Provider Physician Assistant Surgical
DX: Z96.651 Presence of right artificial knee joint (principal); Z47.1 Aftercare following joint replacement surgery; M17.11 Unilateral primary osteoarthritis, right knee
CPT/HCPCS: 97016; 97110; 97113; 97161; 97530

== ENCOUNTER → 2024-11-04 | Outpatient (CLI) | payer MEDICARE, OTHER, SELFPAY ==
[2024-11-04 13:44] LABS: Free T3 3.2 pg/mL (2.18-3.98); Vitamin D,25 Hydroxy 77.9 ng/mL (30-100)
[2024-11-04 14:19] LABS: PTHIN 30 pg/mL (11-61)
== END | disposition home or self-care (01) ==
LOC: MTLAB 10:20
PROVIDERS: PCP Family Medicine; Referring Provider Family Medicine; Visit Provider Family Medicine
DX: E03.9 Hypothyroidism, unspecified (principal); E67.3 Hypervitaminosis D
CPT/HCPCS: 36415; 82306; 83970; 84439; 84443; 84481

== ENCOUNTER → 2024-12-29 | Outpatient (CLI) | payer MEDICARE, OTHER, SELFPAY ==
--- NOTE | 2024-12-29 10:30 | BI_ITS ---
EXAM: SCRN MAMM (CAD)W/DESMOND BILAT DATE: 12/29/2024 CLINICAL HISTORY: F, Age 64 y/o , ANNUAL SCREEN TECHNIQUE: SCRN MAMM (CAD)W/DESMOND BILAT COMPARISON: Prior exam(s) dated 12/25/2023, 12/05/2022, 12/04/2021. FINDINGS: TISSUE DENSITY: The breast tissue is composed of scattered areas of fibroglandular density. Bilateral Breast Mammographic Findings: No significant masses, calcifications or other abnormalities are identified. BI/SCRN MAMM (CAD)W/DESMOND BILAT IMPRESSION: There is no mammographic evidence of malignancy. OVERALL FINAL ASSESSMENT BI-RADS 1: NEGATIVE. RECOMMEND ANNUAL MAMMOGRAPHIC SCREENING. RECOMMENDATION: Routine annual follow-up in 1 Year A letter with findings and recommendations will be mailed to the patient. Reading Location: [id number]
== END | disposition home or self-care (01) ==
LOC: OPBI 10:13
PROVIDERS: PCP Family Medicine; Referring Provider Family Medicine; Visit Provider Family Medicine
DX: Z12.31 Encounter for screening mammogram for malignant neoplasm of breast (principal)
CPT/HCPCS: 77063; 77067

== ENCOUNTER 2025-02-12 09:55 | Outpatient (CLI) | payer MEDICARE, OTHER, SELFPAY ==
--- OUTSIDE RECORDS SUMMARY | 2025-02-12 10:11 | XMS RPT_ITS | CCD ---
Author Organization [facility] CliniSyar Care Team Providers Care Assistant Tennis Professional Name Role Phone Manda GENERALIST, Ruchi Mills Unavailable Andre Leija MD Unavailable Dr. Fer Prado Primary Care Provider Dr. Fer Prado Referring Provider Manda GENERALIST, GENERALIST-C Ruchi Attending Provider Dr. Fer Prado Primary Care Provider Dr. Fer Prado Referring Provider Manda GENERALIST, GENERALIST-C Ruchi Attending Provider JOHAN WEI, FER A Primary Care Physician [phone] Malina Scott Unavailable Tatum ARTEAGA MD, DR KWAKU Barr Attending Zoe Martinez MD, FER A Primary Care Unavailable CHANDLER WEI, DR KWAKU Barr Attending Zoe Martinez MD, FER A Primary Care Unavailable CHANDLER WEI, DR KWAKU Barr Attending Zoe Martinez MD, FER A Primary Care Tatum PRADO MD, FER Barr Consulting Tatum ARTEAGA MD, DR KWAKU Barr Admitting Zoe Brian OSCILLOGRAPH TECHNICIAN-ELEMENTARY READING SPECIALIST, SANDRA L Consulting Dr. Fer Li MD Primary Care Provider Gee RENO, Dr. Ramirez Attending Provider [phone] Gee RENO, Dr. Ramirez Referring Provider Johan WEI, Dr. Mercedes Attending Provider Johan WEI, Dr. Mercedes Referring Provider Gely WEI, Dr. Hodge Attending Provider Gely WEI, Dr. Naveen Referring Provider Eshenaur PA-C, Ray Attending Provider Eshenaur PA-C, Ray Referring Provider [phone] Johan WEI, Dr. Mercedes Primary Care Provider [phone] Johan WEI, Dr. Mercedes Primary Care Provider Johan WEI, Dr. Mercedes Attending Provider Johan WEI, Dr. Mercedes Referring Provider [phone] Hong GENERALIST-C, Allyn Attending Provider Prado, Fer Primary Care Unavailable Fajardo, James Referring Unavailable FajardoJames ann Attending Unavailable Prado, Fer Primary Care Unavailable James Flynn Referring Unavailable James Flynn Attending Unavailable Prado, Fer Primary Care Unavailable Santosh Petit Attending Unavailable Chandler Kwaku Referring Unavailable Prado, Fer Referring Unavailable Allyn Pitts Attending Unavailable Prado, Fer Primary Care Unavailable Prado, Fer Primary Care Unavailable Prado, Fer Referring Unavailable Prado, Fer Attending Unavailable Prado, Fer Primary Care Unavailable Inkom, Naveen Referring Unavailable Naveen Hong Attending Unavailable Prado, Fer Primary Care Unavailable Eshenaur PA, Ray Referring Unavailable Eshenaur PA, Ray Attending Unavailable Prado, Fer Primary Care Unavailable Eshenaur PA, Ray Referring Unavailable Eshenaur PA, Ray Attending Unavailable Prado, Fer Referring Unavailable Prado, Fer Primary Care Unavailable Prado, Fer Attending Unavailable Prado, Fer Referring Unavailable Prado, Fer Primary Care Unavailable Prado, Fer Attending Unavailable Prado, Fer Referring Unavailable Prado, Fer Attending Unavailable Prado, Fer Primary Care Unavailable Prado, Fer Referring Unavailable Prado, Fer Attending Unavailable Prado, Fer Primary Care Unavailable Prado, Fer Referring Unavailable Prado, Fer Attending Unavailable Prado, Fer Primary Care Unavailable Kwaku Arteaga Attending Unavailable Prado, Fer Primary Care Unavailable Kwaku Arteaga Referring Unavailable Kwaku Arteaga Attending Unavailable Prado, Fer Primary Care Unavailable Prado, Fer Primary Care Unavailable Kwaku Arteaga Attending Unavailable Kwaku Arteaga Referring Unavailable Allergies Allergy Classification Reported Allergen(s) Allergy Type Date of Onset Reaction(s) Facility (1 source) House dust mite; Translations: [DUST MITES] allergy to substance 03-17-20 [facility] Work Phone: (18 sources) hydroxychloroquin e; Translations: [hydroxychloroqui ne] Drug Allergy 03-17-20 rash, full body, rash [facility] Work Phone: (1 source) [employer]; Translations: [ANIMALS] allergy to substance 03-17-20 [facility] Work Phone: (1 source) mold extract; Translations: [MOLD] Drug Allergy 03-17-20 [facility] Work Phone: (1 source) sulfacetamide Drug Allergy 03-17-20 [facility] Work Phone: (1 source) PLANT POLLENS; Translations: [PLANT POLLENS] allergy to substance 03-17-20 hay fever [facility] Work Phone: (1 source) WOOL; Translations: [WOOL] allergy to substance 03-17-20 [facility] Work Phone: (14 sources) Sulfonamides (Antibiotic); Translations: [Sulfa (Sulfonamide Antibiotics)] Propensity to adverse reactions 06-22-20 20 Vomiting (12 sources) piqueil; Translations: [piqueil] Allergy to substance 06-23-20 rash (3 sources) Acetaminophen / HYDROcodone; Translations: [acetaminophen-hy drocodone] Drug Allergy Nausea [facility] (3 sources) Sulfonamide; Translations: [sulfa drugs] Drug allergy Nausea [facility] Medications Current Medications Medication Drug Class(es) Dates Sig (Normalized) Sig (Original) acetaminophen 1000 mg oral tablet (1 source) Start: 09-08-2024 take 1 tablet by mouth once daily Tylenol Dose : 1,000 mg = 2 tab(s), Oral, TID, not to exceed 3000 mg/day, 0 Refill(s) Start Date: 09/08/24 Status: Ordered Repeat number: 1 allergy shots (12 sources) Start: 10-29-2021 allergy shots Active SL October 29, 2021 1:45pm Start: 10-29-2021 allergy shots Active SL 0 October 29, 2021 12:00am Start: 10-29-2021 allergy shots Active SL October 29, 2021 12:00am Start: 10-29-2021 allergy shots Active SL October 28, 2021 11:00pm Antiarthritic Combination No .2 (Glucosamine-Chondroitin) 900 mg tablet (13 sources) Start: 06-22-2020 Antiarthritic Combination No.2 (Glucosamine-Chondroitin) 900 mg tablet Active MG PO June 22, 2020 11:19am Start: 06-22-2020 End: 11-11-2022 Antiarthritic Combination No .2 (Glucosamine-Chondroitin) 900 mg tablet Discontinued mg PO June 22, 2020 1:00am November 11, 2022 1:54pm Start: 06-22-2020 End: 11-11-2022 Antiarthritic Combination No .2 (Glucosamine-Chondroitin) 900 mg tablet Discontinued MG PO June 22, 2020 12:00am November 11, 2022 12:54pm Start: 06-22-2020 End: 11-11-2022 Antiarthritic Combination No .2 (Glucosamine-Chondroitin) 900 mg tablet Discontinued MG PO June 22, 2020 1:00am November 11, 2022 1:54pm Start: 06-22-2020 Antiarthritic Combination No.2 (Glucosamine-Chondroitin) 900 mg tablet Active MG PO June 22, 2020 12:00am ascorbic acid 125 mg / collagen, hydrolyzed 740 mg oral capsule (13 sources) Vitamin C Start: 06-22-2020 Ascorbic Acid-Collagen (Collagen Plus Vitamin C) 125-740 mg capsule Active NMA PO June 22, 2020 1:00am aspirin 81 mg oral tablet (1 source) Platelet Aggregation Inhibitor, Nonsteroidal Anti-inflammatory Drug Start: 09-08-2024 End: 10-08-2024 take 1 tablet by mouth twice daily at mealtime aspirin Dose : 81 mg = 1 tab(s), Oral, BIDM, Take 81 mg aspirin twice daily with food for 4 weeks postoperatively for DVT prophylaxis., 0 Refill(s) Start Date: 09/08/24 Stop Date: 10/08/24 Status: Ordered Repeat number: 1 beclomethasone dipropionate 0.08 mg/actuat metered dose nasal spray (17 sources) Corticosteroid Start: 08-16-2024 take 1 dose nasal route once daily Qnasl 80 mcg/inh nasal spray Dose = 2 spray(s), Intranasal, qDay, in each nostril, # 8.7 gram(s), 0 Refill(s) Start Date: 08/16/24 Status: Ordered Quantity: 8.7 Unit: g Repeat number: 1 Start: 03-17-2018 QNASL 80 MCG/A CT AERS once daily as directed BECLOMETHASONE DIPROP (NASAL) [id number] Kalen Davis RN Start: 06-23-2017 Beclomethasone Dipropionate (Qnasl) 80 mcg/actuation HFA aerosol inhaler Active 2 NMA INTRANASAL daily June 23, 2017 1:00am calcium citrate mal.-vit D2-magnesium ox 200 mg-200 unit-25 mg tablet (8 sources) Start: 06-22-2020 calcium citrat e mal.-vit D2-magnesium ox 200 mg-200 unit-25 mg tablet Active TABLET PO June 22, 2020 11:18am Start: 06-22-2020 End: 11-11-2022 calcium citrate mal.-vit D2- magnesium ox 200 mg-200 unit-25 mg tablet Discontinued TABLET PO June 22, 2020 12:00am November 11, 2022 12:54pm Start: 06-22-2020 End: 11-11-2022 calcium citrate mal.-vit D2- magnesium ox 200 mg-200 unit-25 mg tablet Discontinued TABLET PO June 22, 2020 1:00am November 11, 2022 1:54pm Start: 06-22-2020 calcium citrat e mal.-vit D2-magnesium ox 200 mg-200 unit-25 mg tablet Active TABLET PO June 22, 2020 12:00am docusate sodium 50 mg / sennosides, half-way 8.6 mg oral tablet (1 source) Start: 09-08-2024 End: 09-11-2024 take 1 tablet by mouth twice daily Senokot S 50 mg-8.6 mg oral tablet Dose = 2 tab(s), Oral, BID, Take until first bowel movement, then as needed, X 3 day(s), # 12 tab(s), 0 Refill(s), Pharmacy: [id number], 152.4, cm, 09/07/24 10:47:00 EST, Height, kg, 09/07/24 10:47:00 EST, Dosing Weight Start Date: 09/08/24 Stop Date: 09/11/24 Status: Ordered Quantity: 12.0 Unit: tab(s) Repeat number: 1 famotidine 20 mg oral tablet (1 source) Histamine-2 Receptor Antagonist Start: 09-08-2024 Pepcid 20 mg oral tablet Dose : 20 mg = 1 tab(s), Oral, qDay, # 30 tab(s), 0 Refill(s), Pharmacy: [id number], 152.4, cm, 09/07/24 10:47:00 EST, Height, kg, 09/07/24 10:47:00 EST, Dosing Weight Start Date: 09/08/24 Status: Ordered Quantity: 30.0 Unit: tab(s) Repeat number: 1 magnesium (14 sources) Start: 06-22-2020 take 500 mg by mouth once daily Magnesium Active 500 MG PO DAILY June 22, 2020 11:18am Start: 06-22-2020 take 2 tablets by [facility] once daily Magnesium 250 mg tablet Active 500 mg PO DAILY June 22, 2020 1:00am Start: 06-22-2020 take 500 mg by mouth once cristiane y Magnesium Active 500 MG PO DAILY June 22, 2020 1:00am Start: 06-22-2020 take 500 mg by mouth once cristiane y Magnesium Active 500 MG PO DAILY June 22, 2020 12:00am Start: 03-17-2018 MAGNESIUM TABS daily MAGNESIUM TABS [id number] Terena Davis RN magnesium citrate 85 MG Chewable Tablet (3 sources) Start: 08-16-2024 magnesium (as citrate) 85 mg oral tablet, chewable Dose : 85 mg = 1 tab(s), Oral, qDay, # 60 tab(s), 0 Refill(s) Start Date: 08/16/24 Status: Ordered Quantity: 60.0 Unit: tab(s) Repeat number: 1 meloxicam 7.5 mg oral tablet (20 sources) Nonsteroidal Anti-inflammatory Drug Start: 04-25-2022 take 1 tablet by mouth once daily as needed Meloxicam (Mobic) 7.5 mg tablet Active 7.5 mg PO daily as needed October 29, 2021 1:45pm Start: 03-24-2018 MOBIC 7.5 MG T ABS 1 tablet daily as needed MELOXICAM [id number] Andre Leija MD Start: 06-23-2017 End: 10-29-2021 take 1 tablet by mouth once daily Meloxicam (Mobic) 7.5 mg tablet Discontinued 7.5 mg PO daily June 23, 2017 1:00am October 29, 2021 1:46pm oxyCODONE hydrochloride 5 mg oral tablet (1 source) Opioid Agonist Start: 09-08-2024 End: 09-15-2024 take 1-2 tablets by mouth every four hours as needed for pain oxyCODONE 5 mg oral tablet ( IMMEDIATE release ) See Instructions, PRN as needed for pain, 1-2 tab(s) Oral q4h, # 42 tab(s), 0 Refill(s), 09/15/24 9:08:00 AM EDT, Pharmacy: [id number], Status post total right knee replacement, 152.4, cm, 09/07/24 10:47:00 EST, Height, 73.5, kg, 09/07/24 10:47:00 EST, Dosing Weight Start Date: 09/08/24 Stop Date: 09/15/24 Status: Ordered Quantity: 42.0 Unit: tab(s) Repeat number: 1 Indication: Presence of right artificial knee joint pravastatin sodium 20 mg oral tablet (20 sources) HMG-CoA Reductase Inhibitor Start: 08-16-2024 pravastatin 20 mg oral tablet Dose : 20 mg = 1 tab(s), Oral, qHS, 0 Refill(s) Start Date: 08/16/24 Status: Ordered Repeat number: 1 Start: 10-29-2021 Pravastatin 80 mg tablet Active 20 mg PO AT BEDTIME October 29, 2021 1:45pm Start: 10-29-2021 take 20 mg by mouth at bedtime Pravastatin Active 20 MG PO AT BEDTIME October 29, 2021 12:45pm Start: 06-25-2018 End: 10-29-2021 Pravastatin 80 mg tablet Discontinued 40 mg PO AT BEDTIME June 25, 2018 3:04pm October 29, 2021 1:46pm Start: 06-25-2018 End: 10-29-2021 take 40 mg by mouth at bedtime Pravastatin Discontinue d 40 MG PO AT BEDTIME June 25, 2018 2:04pm October 29, 2021 12:46pm Start: 03-17-2018 PRAVASTATIN SO DIUM 40 MG TABS 1 tablet once daily PRAVASTATIN SODIUM [id number] Kalen Davis RN Start: 06-23-2017 End: 06-25-2018 take 1 tablet by mouth at bedtime Pravastatin 80 mg tablet Discontinued 80 mg PO AT BEDTIME 90 0 June 23, 2017 11:43am June 25, 2018 3:07pm Probiotic (3 sources) Start: 08-16-2024 Probiotic 0 Re fill(s) Start Date: 08/16/24 Status: Ordered Repeat number: 1 sodium chloride 0.111 meq/ml nasal spray (20 sources) Start: 10-29-2021 Sodium Chlorid e (Saline Nasal) 0.65 % aerosol,spray Active 1 NMA INTRANASAL TWICE A DAY October 29, 2021 1:45pm Start: 10-29-2021 Sodium Chlorid e (Saline Nasal) 0.65 % aerosol,spray Active 1 SPRAY INTRANASAL TWICE A DAY October 29, 2021 12:45pm Start: 06-22-2020 End: 10-29-2021 Sodium Chloride (Saline Nasa l) 0.65 % aerosol,spray Discontinued 1 NMA INTRANASAL ONCE June 22, 2020 1:00am October 29, 2021 1:46pm Start: 06-22-2020 End: 10-29-2021 Sodium Chloride (Saline Nasa l) 0.65 % aerosol,spray Discontinued 1 SPRAY INTRANASAL ONCE June 22, 2020 12:00am October 29, 2021 12:46pm spironolactone 50 mg oral tablet (5 sources) Aldosterone Antagonist Start: 12-29-2024 Spironolactone 50 mg tablet Active mg PO December 29, 2024 12:00am Start: 08-16-2024 spironolactone 50 mg oral tablet Dose : 50 mg = 1 tab(s), Oral, qDay, Take with food, 0 Refill(s) Start Date: 08/16/24 Status: Ordered Repeat number: 1 thyroid (half-way) 15 mg oral tablet (20 sources) Start: 06-23-2017 End: 06-23-2017 take 1 tablet by mouth once daily Thyroid (Pork) ([place] Thyroid) 15 mg tablet Active 15 mg PO daily 90 0 June 23, 2017 11:46am levothyroxine sodium 0.025 mg oral tablet (20 sources) l-Thyroxi ne Start: 08-16-2024 levothyroxine 25 mcg (0.025 mg) oral tablet Dose : 25 mcg = 1 tab(s), Oral, qDayAC, 0 Refill(s) Start Date: 08/16/24 Status: Ordered Repeat number: 1 Start: 06-22-2020 take 1 tablet by ja[place] th once daily Levothyroxine 25 mcg tablet Active 25 ug PO DAILY June 22, 2020 1:00am Start: 03-17-2018 LEVOTHYROXINE SODIUM 25 MCG TABS 1 tablet once daily LEVOTHYROXINE SODIUM [id number] Kalen Davis RN Start: 06-23-2017 End: 06-23-2017 Levothyroxine 25 mcg capsule Discontinued PO 0 June 23, 2017 1:00am June 23, 2017 11:43am Completed/Discontinued Medications Medication Drug Class(es) Dates Sig (Normalized) Sig (Original) ALLERGY INJECTION (1 source) Start: 03-17-2018 ALLERGY INJECTION weekly as directed ALLERGY INJECTION Rubenpreeti Davis RN amLODIPine 2.5 mg oral tablet (20 sources) Dihydropyridine Calcium Channel Jaspreet Start: 06-23-2017 End: 06-22-2020 take 1 tablet by mouth once daily Amlodipine 2.5 mg tablet Discontinued 2.5 mg PO daily 90 0 June 23, 2017 11:43am June 22, 2020 11:10am CA CIT MALATE-CHOLECALCIFER OL TABS (1 source) Start: 03-17-2018 CALCIUM CITRATE MALATE-VIT D TABS daily CA CIT MALATE-CHOLECALCIFE ROL TABS [id number] Rubenpreeti Davis RN calcium carbonate 750 mg chewable tablet (13 sources) Start: 06-25-2018 End: 06-22-2020 Calcium Carbonate (Antacid (Calcium Carbonate)) 320 mg calcium (750 mg) tablet,chewable Discontinued PO 0 June 25, 2018 1:00am June 22, 2020 11:12am Calcium Cit Mal-Vit D2-Mag Ox 200-200-25 mg-unit-mg tablet (5 sources) Start: 06-22-2020 End: 11-11-2022 Calcium Cit Mal-Vit D2-Mag Ox 200-200-25 mg-unit-mg tablet Discontinued {tbl} PO June 22, 2020 1:00am November 11, 2022 1:54pm cholecalciferol 0.05 mg oral capsule (20 sources) Vitamin D Start: 06-22-2020 End: 12-25-2023 take 1 capsule by mouth once daily Cholecalciferol (Vitamin D3) 50 mcg (2,000 unit) capsule Discontinued 50 ug PO DAILY June 22, 2020 1:00am December 25, 2023 10:45am Start: 06-25-2018 End: 12-29-2024 take 1 capsule by mouth once daily Cholecalciferol (Vitamin D3) 1,000 unit capsule Discontinued 1000 U PO DAILY June 25, 2018 1:00am December 29, 2024 9:07am Start: 03-17-2018 VITAMIN D3 300 0 UNIT TABS daily CHOLECALCIFEROL [id number] Kalen Davis RN [id number] TABS (1 source) Start: 03-17-2018 [id number] TABS daily PYRZWRINTEY-[id number] TABS [id number] Kalen Davis RN docusate sodium 100 mg oral capsule (1 source) Start: 03-17-2018 DOCUSATE SODIUM 100 MG CAPS daily DOCUSATE SODIUM [id number] Kalen Davis RN doxycycline hyclate 50 mg oral capsule (13 sources) Tetracycl ine-class Drug Start: 06-22-2020 End: 10-29-2021 take 1 capsule by mouth once daily as needed Doxycycline Hyclate 50 mg capsule Discontinued 50 mg PO DAILY as needed June 22, 2020 1:00am October 29, 2021 1:44pm eflornithine 139 mg/ml topical cream (13 sources) Antiproto zoal, Decarboxy lase Inhibitor Start: 06-22-2020 End: 10-29-2021 Eflornithine (Vaniqa) 13.9 % cream Discontinued 1 NMA TOPICAL TWICE A DAY June 22, 2020 1:00am October 29, 2021 1:44pm space doses >= 8 hrs apart and at least 5 min after hair removal; avoid water for 4hr after any dose hydroCHLOROthiazide 25 mg oral tablet (13 sources) Thiazide Diuretic Start: 06-22-2020 End: 12-25-2023 take 1 tablet by mouth once daily Hydrochlorothiazide 25 mg tablet Discontinued 25 mg PO DAILY June 22, 2020 1:00am December 25, 2023 10:46am IRBESARTAN-HYDROCHLOROTHIAZI DE TABS (1 source) Thiazide Diuretic, Angiotens in 2 Receptor Jaspreet Start: 03-17-2018 IRBESARTAN-HYDROCHLOROTHIAZI DE TABS 300mg/25mg once daily IRBESARTAN-HYDROCHLOROTHIAZI DE TABS [id number] Kalen Davis RN Lactobacillus Combination No.8 (Adult Probiotic) 3 billion cell capsule (13 sources) Start: 06-25-2018 End: 06-22-2020 take 3 capsules by mouth once daily Lactobacillus Combination No.8 (Adult Probiotic) 3 billion cell capsule Discontinued 3000 MMU CELLS PO DAILY June 25, 2018 3:06pm June 22, 2020 11:11am Start: 06-25-2018 End: 06-22-2020 take 3 capsules by mouth once daily Lactobacillus Combination No.8 (Adult Probiotic) 3 billion cell capsule Discontinued 3000 NMA PO DAILY June 25, 2018 1:00am June 22, 2020 11:11am Start: 06-25-2018 End: 06-22-2020 take 3 capsules by mouth once daily Lactobacillus Combination No.8 (Adult Probiotic) 3 billion cell capsule Discontinued 3000 MMU CELLS PO DAILY June 25, 2018 1:00am June 22, 2020 11:11am Start: 06-25-2018 End: 06-22-2020 take 3 capsules by mouth once daily Lactobacillus Combination No.8 (Adult Probiotic) 3 billion cell capsule Discontinued 3000 MMU CELLS PO DAILY June 25, 2018 12:00am June 22, 2020 10:11am Drug Treatment Unknown - unknown (1 source) No information a vailable. polyethylene glycol 3350 79541 mg powder for oral solution (13 sources) Osmotic Laxative Start: 06-25-2018 End: 11-11-2022 Polyethylene Glycol 3350 (Miralax) 17 gram/dose powder Discontinued PO 0 June 25, 2018 1:00am November 11, 2022 1:54pm Start: 06-25-2018 End: 05-08-2023 Polyethylene Glycol 3350 (Mi ralax) 17 gram/dose powder Discontinued PO June 25, 2018 12:00am November 11, 2022 12:54pm PROBIOTIC PRODUCT (1 source) Start: 03-17-2018 PROBIOTIC TBEC 2 tablets daily PROBIOTIC PRODUCT [id number] Kalen Davis RN Semaglutide 5mg/ml Inj 4ml vial (20mg) (3 sources) Start: 08-16-2024 inject 0.4 mL by subcutaneous injection every week Semaglutide 5mg/ml Inj 4ml vial (20mg) Semaglutide 5mg/ml Inj 4ml vial (20mg), Inject 0.4ml subcutaneously once weekly Start Date: 08/16/24 Status: Ordered Repeat number: 1 telmisartan 20 mg oral tablet (5 sources) Angiotensin 2 Receptor Jaspreet Start: 12-25-2023 End: 12-29-2024 Telmisartan 20 mg tablet Discontinued 20 mg PO DAILY December 25, 2023 12:00am December 29, 2024 9:07am 10mg every other day 20mg opposite. ubidecarenone 400 mg oral capsule (13 sources) Start: 06-22-2020 End: 12-25-2023 take 10 capsules by mouth once daily Coenzyme Q10 400 mg capsule Discontinued 400 mg PO DAILY June 22, 2020 1:00am December 25, 2023 10:45am Problems Active Problems Problem Classification Problem Date Documented Da te Episodic/Chronic Diseases of white blood cells (2 sources) Leukocytosis; Translations: [Elevated white blood cell count, unspecified] Onset: 09-08-2024 Chronic Essential hypertension (2 sources) Essential hypertension; Translations: [Essential (primary) hypertension] Onset: 08-11-2024 Chronic Menopausal disorders (1 source) Unspecified menopausal and perimenopausal disorder; Translations: [Unspecified menopausal and perimenopausal disorder] Onset: 03-04-2024 Chronic Osteoporosis (1 source) Primary osteoporosis; Translations: [Age-related osteoporosis without current pathological fracture] Onset: 09-08-2024 Chronic Other bone disease and musculoskeletal deformities (1 source) Idiopathic aseptic necrosis of left femur; Translations: [Idiopathic aseptic necrosis of left femur] Onset: 02-23-2024 Chronic Other connective tissue disease (1 source) Artificial knee joint present; Translations: [Presence of right artificial knee joint] Onset: 09-08-2024 Chronic Other connective tissue disease (1 source) Ganglion, right hand; Translations: [Ganglion, right hand] Onset: 03-24-2018 03-24-2018 Episodic Other diseases of kidney and ureters (2 sources) Disorder of kidney and/or ureter; Translations: [Disorder of kidney and ureter, unspecified] Onset: 09-08-2024 Episodic Other nutritional; endocrine; and metabolic disorders (12 sources) Obesity; Translations: [Obesity, unspecified] 10-29-2021 Chronic Other nutritional; endocrine; and metabolic disorders (1 source) Obesity, unspecified; Translations: [Obesity, unspecified] Chronic Other screening for suspected conditions (not mental disorders or infectious disease) (1 source) Encounter for screening mammogram for malignant neoplasm of breast; Translations: [Encounter for screening mammogram for malignant neoplasm of breast] Onset: 01-03-2025 Episodic Thyroid disorders (1 source) Hypothyroidism, unspecified; Translations: [Hypothyroidism, unspecified] Onset: 11-11-2024 Chronic Unclassified (1 source) No current problems or disability 07-10-2017 Past or Other Problems Problem Classification Problem Date Documented Da te Episodic/Chronic Mycoses (1 source) Tinea unguium; Translations: [Tinea unguium] Onset: 07-16-2024 Episodic Other non-traumatic joint disorders (1 source) Pain in left hip; Translations: [Pain in left hip] Onset: 03-30-2024 Episodic Other skin disorders (1 source) Other androgenic alopecia; Translations: [Other androgenic alopecia] Onset: 08-25-2024 Episodic Unclassified (1 source) Problem Unclassified (11 sources) history of right breast mass removal & reduction 01-23-2022 Results Test Name Value Interpretation Reference Range Facility Breast imaging reportOrdered By: Franny Arreola on 12-29-2024 Study report [facility] Imaging Services [address], [place] [id number] SCRN MAMM (CAD)W/DESMOND ARRIAGA MR#: [id number] Acct: [id number] Name: KIM MOSQUERA Rep #: [id number] : 1960 F 64 From: Angela Arreola MD PCP: Dr. Fer Prado MD Status: [facility] CLI Study:SCRN MAMM (CAD)W/DESMOND BILAT Date of Exa m: 12/29/24 Exam# [id number] Ordering Dr: Justice Prado MD EXAM: SCRN MAMM (CAD)W/DESMOND BILAT DATE: 12/29/2024 CLINICAL HISTORY: F, Age 64 y/o , ANNUAL SCREEN TECHNIQUE: SCRN MAMM (CAD)W/DESMOND BILAT COMPARISON: Prior exam(s) dated 12/25/2023, 12/05/2022, 12/04/2021. FINDINGS: TISSUE DENSITY: The breast tissue is composed of scattered areas of fibroglandular density. Bilateral Breast Mammographic Findings: No significant masses, calcifications or other abnormalities are identified. BI/SCRN MAMM (CAD)W/DESMOND BILAT IMPRESSION: There is no mammographic evidence of malignancy. OVERALL FINAL ASSESSMENT BI-RADS 1: NEGATIVE. RECOMMEND ANNUAL MAMMOGRAPHIC SCREENING. RECOMMENDATION: Routine annual follow-up in 1 Year A letter with findings and recommendations will be mailed to the patient. Reading Location: [id number] CC: Dr. Fer Prado MD ~ Pole Classifier: Signed [facility] Office Visit Reporton 12-29-2024 [facility] Office Visit Report [facility] [address], [address] [place] [address] OFFICE VISIT Date of Service: 12/29/24 MR#: [id number] Acct: [id number] Name: KIM MOSQUERA Rep #: [id number] : 1960 Provider: HÉCTOR Shanks Age/Sex: 64/F [place] [facility] [place]: Signed with Addenda ADDENDUM by HÉCTOR Pitts on 12/29/24 at 0950 HPI HPI Narrative: Patient reports no issues or concerns today other than weight gain. She is currently on semiglutide (prescribed elsewhere). Will be stopping this after this month. She is concerned she will gain the weight back. 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 Marketing [employer] Required: No Is patient in pain?: No Allergies hydroxychloroquine Adverse Reaction (Severe, Verified 12/29/24 09:06) rash Sulfa (Sulfonamide Antibiotics) Adverse Reaction (Mild, Verified 12/29/24 09:06) Vomiting Medications ???Medication ???Instructions ???Recorded ???Confirmed ???Type beclomethasone dipropionate 80 2 inh intranasal QDAY 06/23/17 History mcg/actuation nasal HFA inhaler (QNASL) thyroid (pork) 15 mg tablet 15 mg PO QDAY #90 tabs 06/23/17 Rx ([facility] Thyroid) ascorbic acid 125 mg-collagen, cap PO 06/22/20 12/29/24 History hydrolyzed 740 mg capsule (Collagen Plus Vitamin C) levothyroxine 25 mcg tablet 25 mcg PO DAILY 06/22/20 12/29/24 History magnesium 250 mg tablet 500 mg PO DAILY 06/22/20 12/29/24 History allergy shots sublingual 10/29/21 12/29/24 Histo ry meloxicam 7.5 mg tablet (Mobic) 7.5 mg PO QDAY PRN 10/29/21 History pravastatin 80 mg tablet 20 mg PO QHS 10/29/21 12/29/24 His tory sodium chloride 0.65 % nasal spray 1 spray intranasal BID 10/29/21 12/29/24 History aerosol (Saline Nasal) spironolactone 50 mg tablet mg PO 12/29/24 12/29/24 History Is last menstrual period known: No Post menopausal: Yes Patient : No : No [facility] Medical History (Updated 12/29/24 @ 09:10 by Deysi Amaya) Cataracts, both eyes History of sinus problem history of right breast mass removal reduction History of abnormal cervical Pap smear Arthritis History of high cholesterol History of high blood pressure Surgical History History of left hip replacement H/O abdominoplasty Bone spur of finger IP joint History of endometrial ablation History of delivery History of foot surgery History of left knee surgery Family History Father , Parkinsons, arthritis, dementia No problems noted. Mother Hypertension Arthritis High cholesterol Sister Breast cancer, Onset Age: 66 Social History household members: spouse housing: house current occupational status: retired Smoking Status: Never smoker alcohol intake: never substance use type: does not use what type of physical activity do you participate in: aerobics and weight training frequency: 5-6 times per week seatbelt use: always do you feel safe at home: Yes additional social history: Spouse [place] History 3 Elective abortions Hx Para 3 Spontaneous abortions Hx # Term Pregnancies Ectopic pregnancies Hx # Pregnancies Multiple births # of living children Past Pregnancies Del. Date Name GA/Weeks Outcome Route Bth Weight Infant Gen Labor Lgth Anesthesia Del Locatn Provider FOB Unknown 1983 Talia Unknown 1985 Alvaro Unknown 1987 Danielle [facility] Encounter for routine gynecological examination Details: KIM MOSQUERA is a 64 year old who presents for annual exam. She reports her Last PAP: 2022 History of abnormal PAP: Yes, 25-30yrs ago Last mammogram: 2023, scheduled for today History of abnormal mammogram: Yes- years ago, benign Colon cancer screenin- Normal Other preventative health care screenings: PCP ROS Const Constitutional: Denies chills, fatigue, fever(s), headache(s) or weight loss Eyes Eyes: Denies change in vision ENT ENT: Denies dizziness Resp Resp: Denies cough GI GI: Denies abdominal pain, constipation or nausea : Denies difficulty voiding, dysuria, hematuria, nipple discharge, pelvic pain, prolapse symptoms, urinary incontinence, vaginal discharge, vaginal dryness, vaginal odor or vaginal pruritus Skin Skin/Breast: Denies alopecia, rash, breast mass, breast pain, breast skin changes or nipple discharge Neur (more content not included)... Normal SCRN MAMM (CAD)W/DESMOND hernández 12-29-2024 SCRN MAMM (CAD)W/DESMOND BILAT [facility] Imaging Services [address] [place], [place] [address] SCRN MAMM (CAD)W/DESMOND BILAT MR#: [id number] Acct: [id number] Name: KIM MOSQUERA Rep #: [id number] : 1960 F 64 From: Franny Arreola MD PCP: Dr. Fer Prado MD Status: REG CLI Study: SCRN MAMM (CAD)W/DESMOND BILAT Date of Exam: 12/06 11/28 Exam# [id number] Ordering Dr: Fer Prado MD EXAM: SCRN MAMM (CAD)W/DESMOND BILAT DATE: 12/29/2024 CLINICAL HISTORY: F, Age 64 y/o , ANNUAL SCREEN TECHNIQUE: SCRN MAMM (CAD)W/DESMOND BILAT COMPARISON: Prior exam(s) dated 12/25/2023, 12/05/2022, 12/04/2021. FINDINGS: TISSUE DENSITY: The breast tissue is composed of scattered areas of fibroglandular density. Bilateral Breast Mammographic Findings: No significant masses, calcifications or other abnormalities are identified. BI/SCRN MAMM (CAD)W/DESMOND BILAT IMPRESSION: There is no mammographic evidence of malignancy. OVERALL FINAL ASSESSMENT BI-RADS 1: NEGATIVE. RECOMMEND ANNUAL MAMMOGRAPHIC SCREENING. RECOMMENDATION: Routine annual follow-up in 1 Year A letter with findings and recommendations will be mailed to the patient. Reading Location: [facility] CC: Dr. Fer Prado MD Pole Classifier: Signed Normal Free T3on 11-04-2024 Free T3 [Mass/Vol] 3.2 pg/mL Normal 2.18-3.98 [facility] Comment on above: Order Comment: Order Date: 08/27/24Order Info: 3051-0 - [id number] Info: 3016-3 - TSHOrder Info: 3024-7 - T4F Performed By: #### L 501.94931, L509.1000, L506.0400, L501.9520 #### [id number] [place], [address] Free [id number] By: Fer dangelo on 11-04-2024 Free T3 [Mass/Vol] 3.2 pg/mL 2.18-3.98 [facility] PTHINon 11-04-2024 PTH 30 pg/mL Normal 11-61 Comment on above: Order Comment: Order Date: 08/27/24Order Info: 0565-1 - PTHIN Performed By: #### L 501.55453, L509.1000, L506.0400, L501.9520 #### [id number] [place], [address] T4 Free Directon 11-04-2024 T4 FREE DIRECT 1.30 ng/dL Normal 0.76-1.46 Comment on above: Order Comment: Order Date: 08/27/24Order Info: 3051-0 - C9CGgsyw Info: 3016-3 - TSHOrder Info: 3024-7 - T4F Performed By: #### L 501.68413, L509.1000, L506.0400, L501.9520 #### [id number] [place], [address] T4 freeOrdered By: Fer dangelo on 11-04-2024 Free T4 [Mass/Vol] 1.30 ng/dL 0.76-1.46 [facility] TSH DL <= 0.005 mIU/L QnOrde red By: Fer Prado on 11-04-2024 TSH Qn 1.030 uIU/mL 0.300-4.20 0 Thyroid Stim Hormone (TSH)on 11-04-2024 TSH 1.030 uIU/mL Normal 0.300-4.20 0 Comment on above: Order Comment: Order Date: 08/27/24Order Info: 3051-0 - [id number] Info: 3016-3 - TSHOrder Info: 3024-7 - T4F Performed By: #### L 501.59019, L509.1000, L506.0400, L501.9520 #### [id number] [place], [address] Vitamin D,25 Hydroxyon 11-04 Vitamin D 25-OH 77.9 ng/mL Normal 30-100 Comment on above: Order Comment: Order Date: 08/27/24Order Info: 3051-0 - [id number] Info: 3016-3 - TSHOrder Info: 3024-7 - T4F Result Comment: Swapna min D Status Deficiency: <20 ng/mL (50nmol/L) Insufficiency: 20-30 ng/mL (50-75 nmol/L) Sufficiency: 30-100 ng/mL (75-250 nmol/L) Toxicity: >100 ng/mL (>250 nmol/L) Performed By: #### L 506.1001 #### [id number] [place], [address] PT D/C Summary (1)on 025 PT D/C Summary (1) Physical Therapy [facility] [place] [address] / REHABILITATION SERVICES DISCHARGE SUMMARY MR#: [id number] Acct: [id number] Name: KIM MOSQUERA Rep #: [id number] : 1960 64 From: Michael Castano DPT Referring Dr.: SHABBIR Isabel Status: REG R CR Insurance: MEDICARE PART A B [facility] Discharge Summary D/C summary: It has been my pleasure to treat KIM MOSQUERA referred by Calvin Isabel PA-C, with the diagnosis of R TKA, DOS: 09/07/24 for a total of 18 visit(s). Discharge Date: 11/03/24 Please see the following information for a summary of their discharge status. Subjective Subjective: Pt. reports being 95% better overall. Pt. reports being I with all exercises. She have more issues with her L hip compared to her R knee. Pt. reports overall being pleased with her R knee. No issues with walking or activities. Pt. reports being compliant with both land and aquatic exercises x6 days per week. Pain R knee: Pain Intensity (Out of 10): 0 Overall Improvement % Improvement: 95 Objective Objective/Function: ROM: R knee 0-0-122deg. MMT: RLE: knee: ext 23.8#, flexion 21.9# LLE: knee ext: 21.9#, flexion 20.9# GAIT: pt. has fairly normal gait pattern. Great R knee ROM, but has slight antalgic motion during L stance phase. STAIRS: fairly normal pattern, but does have some L hip weakness during stance phase. Pt. is overall doing great. she is having some L hip soreness/weakness. She did have a L ODILIA last year, in the late fall. I recommend that she continue to strengthen and progress as tolerated. If not improving she can follow up with physician. Goals Goal 1:: LTG: pt. to be I with HEP. Goal Progress: Goal Met Goal 2:: STG: Pt. to have increased ROM to 0-0-120deg. allowing for increased tolerance to all functional mobility. Goal Progress: Goal Met Goal 3:: LTG: Pt. to have increased RLE strength to symmetrical to L side. Goal Progress: Goal Met Goal 4:: LTG: Pt. to complete TUG with time less than 10sec. Goal Progress: Goal Met Goal 5:: LTG: Pt. to complete 30sec sit to stand rep test with score of at least 15. Goal Progress: Goal Met Goal 6:: LTG: Pt. to ambulate unlimited distances with out AD without increase in R knee pain Goal Progress: Goal Met Plan Plan: Pt. to be DC from PT at this point in time. Pt. is D/C Information Discharge Comments: Pt. has met all goals and will be DC from PT at this point in time. d/c sentence: If there are questions or concerns regarding this patient's physical therapy, please feel free to call me at [phone]. Thank you for the referral of this patient. Sincerely, Michael Cross Sipos, DPT Balance/Gait/Functional tests Balance/Special Test Scores Lower Extremity Functional Score: 67 TUG Test Time Seconds: 8.2 Tug Test: <10 sec.=free mobile 30 Second Chair Rise Test Seconds: 16 6 Minute Walk Test: 1391 feet no Ad WOMAC Total Score: 90 WOMAC Percentage: 6.2500 Improvement % Improvement: 95 11/03/24 1304 CC: SHABBIR Isabel; Dr. Fer Prado MD CLS Signed Normal Re-Evaluation - PT (1)on Re-Evaluation - PT (1) Physical Therapy [facility] [address] [place] [address] / REEVALUATION / MEDICARE RECERTIFICATION PHYSICAL THERAPY MR#: [id number] Acct: [id number] Name: KIM MOSQUERA Rep #: [id number] : 1960 64 From: Michael Castano DPT Referring Dr.: SHABBIR Isabel Status:REG RCR Insurance: MEDICARE PART A B [facility] Re-Evaluation Intro: Calvin Isabel PA-C, It has been my pleasure to treat KIM MOSQUERA over the last 11 visits for R TKA, DOS: 09/07/24. Please see the progress note below for an update on the physical therapy plan of care! Subjective Subjective: Pt. reports overall being 80% better. Pt. is sleeping well without issues. Pt. reports still having issues with stairs. Pt. reports no pain, but still has stiffness. Objective Objective/Function: ROM: PROM: 0-0-121deg AROM: 0-0-118deg. MMT: LLE: 22.3# ext, flex 22.1#. RLE: ext 15.5#, flex 16.3# GAIT: Pt. ambulates without AD. She does tend to vault on her RLE. this was improved with VCing. STAIRS: Pt. able to complete with reciprocal pattern with 2 HR, heavy use of railings. and increased pain. TU.96 noAD 30sec sit to stand rep test: 13 rep 6 MWT: 1345 feet Plan Plan Plan: 1) continue with end range stretching 2) progressive quad and HS and hip strengthening 3) gait techniques and stair negotiation Balance/Gait/Functional tests Balance/Special Test Scores Lower Extremity Functional Score: 47 TUG Test Time Seconds: 9.96 Tug Test: <10 sec.=free mobile 30 Second Chair Rise Test Seconds: 13 6 Minute Walk Test: 1345 no AD WOMAC Total Score: 90 WOMAC Percentage: 6.2500 Goals Goals Goal 1:: LTG: pt. to be I with HEP. Goal Time Frame: 4-6 Weeks Goal Progress: Progressing Goal 2:: STG: Pt. to have increased ROM to 0-0-120deg. allowing for increased tolerance to all functional mobility. Goal Time Frame: 2-4 Weeks Goal Progress: Progressing Goal 3:: LTG: Pt. to have increased RLE strength to symmetrical to L side. Goal Time Frame: 4-6 Weeks Goal Progress: Progressing Goal 4:: LTG: Pt. to complete TUG with time less than 10sec. Goal Time Frame: 4-6 Weeks Goal Progress: Goal Met Goal 5:: LTG: Pt. to complete 30sec sit to stand rep test with score of at least 15. Goal Time Frame: 6-8 Weeks Goal Progress: Progressing Goal 6:: LTG: Pt. to ambulate unlimited distances with out AD without increase in R knee pain Goal Time Frame: 6-8 Weeks Goal Progress: Progressing Anticipated Interventions Anticipated Interventions Patient/Client Instruction: Educate patient on: Condition, Plan of Care, Risk Factors and Benefits of Fitness Program For the Purpose of:: To improve decision making, To facilitate caregiver knowledge, To improve self management, To prevent re-injury and To improve ability to perform tasks related to life management Therapeutic Exercise to Include: Strength training, Power training, Endurance training, Balance training, Agility training, Body mechanics, Flexibilty training, Gait and locomotor training, Passive ROM and Active ROM For the Purpose of:: To decrease pain, To decrease swelling/inflammation, To increase ROM, To improve nutrient delivery to tissue, To increase oxygenation perfusion, To improve muscle performance and motor function, To improve ability to perform ADL's, To increase tolerance to activity/condition/posi tion, To improve health of tissue, To decrease soft tissue restriction and To increase flexibility/ROM Manual Therapy Techniques to Include: Mobilization, Passive ROM and Soft tissue mobilization For the Purpose of:: To decrease pain, To decrease swelling/inflammation, To increase ROM, To improve nutrient delivery to tissue, To increase oxygenation perfusion, To improve muscle performance and motor function, To decrease soft tissue restriction and To increase flexibility/ROM Cryotherapy (ice pack, ice massage): Yes Vasopneumatic device: Yes For the Purpose of:: To decrease pain, To decrease swelling/inflammation and To increase ROM Re-Evaluation Ending Re-evaluation ending: Please do not hesitate to contact me at [phone] by phone or if you have questions or concerns regarding this new plan of care! Sincerely, Michael Castano DPDrake 10/11/24 1202 CC: SHABBIR Isabel; Dr. Fer Prado MD CLS Signed For Medicare only, by signing this I certify the plan of care. Physicians Signature Date Normal Anion gap in Serum or Plasma Ordered By: Sam Isabel on 09-13-2024 Anion gap [Moles/Vol] 14 mmol/L 5-15 [facility] BUN/creatinine ratioOrdered By: Sam Isabel on 09-13-2024 Urea nitrogen/Creatinine [Mass ratio] 28.5 mg/mg High 04-25 Basic Metabolic Profile (BMP )on 09-13-2024 BUN/CRE 28.5 RATIO High [facility] Comment on above: Performed By: #### L 500.2500, L100.0500 #### [id number] [place], [address] Calcium [Mass/Vol] 9.3 mg/dL Normal 7.6-11.0 [facility] Comment on above: Performed By: #### L 500.2500, L100.0500 #### [id number] [place], [address] Chloride [Moles/Vol] 103 mmol/L Normal 98-108 [facility] Comment on above: Performed By: #### L 500.2500, L100.0500 #### [address] [place], [address] CO2 [Moles/Vol] 22.4 mmol/L Normal 21.0-32.0 Comment on above: Performed By: #### L 500.2500, L100.0500 #### [id number] [place], [address] Creatinine [Mass/Vol] 0.79 mg/dL Normal 0.70-1.20 [facility] Comment on above: Performed By: #### L 500.2500, L100.0500 #### [address] [place], [address] GAP 14 Normal 5-15 Comment on above: Performed By: #### L 500.2500, L100.0500 #### [id number] [place], [address] GFR/1.73 sq M.predicted among non-blacks MDRD (S/P/Bld) [Vol rate/Area] 82 mL/min/{1.73_m2} Normal >60 [facility] Comment on above: Result Comment: mL/m in/1.73m2 CKD-EPI Creatinine Equation (2020) Performed By: #### L 500.2500, L100.0500 #### [id number] [place], [address] Glucose [Mass/Vol] 103 mg/dL High 70-99 [facility] Comment on above: Performed By: #### L 500.2500, L100.0500 #### [address] [place], [address] Potassium [Moles/Vol] 4.5 mmol/L Normal 3.3-5.1 [facility] Comment on above: Performed By: #### L 500.2500, L100.0500 #### [address] [place], [address] Sodium [Moles/Vol] 139 mmol/L Normal 133-145 [facility] Comment on above: Performed By: #### L 500.2500, L100.0500 #### [id number] [place], [address] Urea nitrogen [Mass/Vol] 23 mg/dL High 4-19 Comment on above: Performed By: #### L 500.2500, L100.0500 #### [id number] [place], [address] CBC-Complete Blood Cnt No Di ffon 09-13-2024 Erythrocyte distribution width (RBC) [Ratio] 14.6 % Normal 11.6-14.6 Comment on above: Performed By: #### L 500.2500, L100.0500 #### Laboratory [address] [place], [address] Hematocrit (Bld) [Volume fraction] 37.6 % Normal 37-47 Comment on above: Performed By: #### L 500.2500, L100.0500 #### Laboratory [address] [place], [address] Hemoglobin (Bld) [Mass/Vol] 12.5 g/dL Normal 12.0-15.0 Comment on above: Performed By: #### L 500.2500, L100.0500 #### [facility] [address] [place], [address] MCH (RBC) [Entitic mass] 29.6 pg Normal 27.0-32.0 Comment on above: Performed By: #### L 500.2500, L100.0500 #### Laboratory [address] [place], [address] MCHC (RBC) [Mass/Vol] 33.2 g/dL Normal 32-36 [facility] Comment on above: Performed By: #### L 500.2500, L100.0500 #### Laboratory [address] [place], [address] MCV (RBC) [Entitic vol] 89.1 fL Normal 81-99 [facility] Comment on above: Performed By: #### L 500.2500, L100.0500 #### Laboratory [address] [place], [address] Platelet mean volume (Bld) [Entitic vol] 12.2 fL High 6.2-12.0 Comment on above: Performed By: #### L 500.2500, L100.0500 #### Laboratory [address] [place], [address] Platelets (Bld) [#/Vol] 435 10*3/uL Normal 150-450 Comment on above: Performed By: #### L 500.2500, L100.0500 #### Laboratory [address] [place], [address] RBC (Bld) [#/Vol] 4.22 10*6/uL Normal 4.2-5.4 [facility] Comment on above: Performed By: #### L 500.2500, L100.0500 #### Laboratory [address] [place], [address] RDW SD 46.9 fl High 35.1-43.9 Comment on above: Performed By: #### L 500.2500, L100.0500 #### Laboratory [address] [place], [address] WBC (Bld) [#/Vol] 9.9 10*3/uL Normal 4.4-11.0 [facility] Comment on above: Performed By: #### L 500.2500, L100.0500 #### [facility] [place], [address] Carbon dioxide, total [Moles /volume] in Central venous bloodOrdered By: Sam Isabel on 09-13-2024 CO2 [Moles/Vol] 22.4 mmol/L 21.0-32.0 Chloride assayOrdered By: Ra ajmes Isabel on 09-13-2024 Chloride [Moles/Vol] 103 mmol/L 98-108 [facility] Erythrocyte distribution wid th ratioOrdered By: Sam Isabel on 09-13-2024 Erythrocyte distribution width (RBC) [Ratio] 14.6 % 11.6-14.6 Erythrocyte distribution wid th standard deviationOrdered By: Sam Isabel on 09-13-2024 Erythrocyte distribution width (RBC) [Entitic vol] 46.9 fL High 35.1-43.9 [facility] Erythrocyte distribution width (RBC) [Ratio] 46.9 fl High 35.1-43.9 GFR/1.73 sq M.predicted esteban g non-blacks MDRD (S/P/Bld) [Vol rate/Area]Ordered By: Sam Isabel on 09-13-2024 Estimated GFR (MDRD) Non-Af Amer 82 >60 Comment on above: mL/min/1.73m2 CKD-EP I Creatinine Equation (2020) Glomerular filtration rate ( GFR) estimation/1.73 sq m using serum, plasma, or whole bOrdered By: Sam Isabel on 09-13-2024 GFR/1.73 sq M.predicted among non-blacks MDRD (S/P/Bld) [Vol rate/Area] 82 mL/min/{1.73_m2} >60 [facility] Comment on above: mL/min/1.73m2 CKD-EP I Creatinine Equation (2020) Hematocrit Auto (Bld) [Volum e fraction]Ordered By: Sam Isabel on 09-13-2024 Hematocrit (Bld) [Volume fraction] 37.6 % 37-47 Hemoglobin measurementOrdere d By: Sam Isabel on 09-13-2024 Hemoglobin (Bld) [Mass/Vol] 12.5 g/dL 12.0-15.0 Inital Evaluation (1) - PTon 09-13-2024 Inital Evaluation (1) - PT Physical Therapy [facility] [address] [place] [address] / REHABILITATION SERVICES INITIAL EVALUATION MR#: [id number] Acct: [id number] Name: KIM MOSQUERA Rep #: [id number] : 1960 64 From: Michael Castano DPT Referring Dr.: Sam Isabel PA-C Status: REG R CR Insurance: MEDICARE PART A B [facility] Patient's Visit Information Visit Information Visit Information: KIM MOSQUERA is a 64 year old F referred to Physical Therapy by Calvin Isabel PA-C with a diagnosis of R TKA, DOS: 09/07/24. Date of Evaluation: 09/13/24 Physical Therapist: Michael Castano DPT Visit Plan Frequency: 3x /Week Duration: 6 Weeks Plan: 1) ROM progression to 0-0-120deg. 2) decreased edema 3) Work on quad, HS and glute strength 4) gait progression to no AD as able 5) ice/vaso as needed. Subjective Subjective: Pt. is here today for her initial evaluation with diagnosis of R TKA, DOS: 09/07/24. Pt. arrives with use of FWW with good tolerance with walking. No calf pain, no dizziness, no difficulty breathing. Pt. did report some nausea, but reports this occurs with taking her medications. Pt. has been doing her exercises as prescribed. Pt. is sleeping okay. She is icing as prescribed. Pt. is sleeping okay. Pt. has bandage in place and is to remove this weekend. She is hopeful to get back to all recreational activities. Pt. does work out at local gym 4-5 times per week and would like to get back to this as well. She does a lot of aquatic classes. Pain R knee: Pain Intensity (Out of 10): 5 Pain Intensity Range: 3 and 7 Objective Objective: POSTURE: Pt. has good WBing, with symmetrical wt. shifting. Pt. does tend to favor standing with slight lean to L side. PALPATION: negative homans. Pt. has 6 cm difference at mid patella with edema. NEURO: normal sensation and normal achilles DTR. Pt. is able to rise on heels and toes without issues. ROM: R knee: 0-4-88deg. Pt. reports tightness and pain a limiting factor. pt. has normal HS length bilat. MMT: R knee: ext 5#, flexion 8#; hip: flexion 0#, abd 5#. GAIT: Pt. ambulates with FWW with good step length, she does have decreased TKE during stance on RLE and limited knee flexion during swing. Balance/Special Test Scores TUG Test Time Seconds: 29.8 30 Second Chair Rise Test Seconds: 8 WOMAC Total Score: 90 WOMAC Percentatge: 6.2500 Goals Goal 1:: LTG: pt. to be I with HEP. Goal Time Frame: 4-6 Weeks Goal 2:: STG: Pt. to have increased ROM to 0-0-120deg. allowing for increased tolerance to all functional mobility. Goal Time Frame: 2-4 Weeks Goal 3:: LTG: Pt. to have increased RLE strength to symmetrical to L side. Goal Time Frame: 4-6 Weeks Goal 4:: LTG: Pt. to complete TUG with time less than 10sec. Goal Time Frame: 4-6 Weeks Goal 5:: LTG: Pt. to complete 30sec sit to stand rep test with score of at least 15. Goal Time Frame: 6-8 Weeks Goal 6:: LTG: Pt. to ambulate unlimited distances with out AD without increase in R knee pain Goal Time Frame: 6-8 Weeks Rehabilitation Potential Physical Therapy Diagnosis: PT. has signs and symptoms consistent with R TKA DOS: 09/07/24. Pt. has marked hypomobility, weakness, increased pain and difficulty with functional mobility. Pt. would benefit from PT to address the above limitations progressing back to all recreational activities without limitations. Rehabilitation Potential: Excellent Anticipated Interventions Patient/Client Instruction: Educate patient on: Condition, Plan of Care, Risk Factors and Benefits of Fitness Program For the Purpose of:: To improve decision making, To facilitate caregiver knowledge, To improve self management, To prevent re-injury and To improve ability to perform tasks related to life management Therapeutic Exercise to Include: Strength training, Power training, Endurance training, Balance training, Agility training, Body mechanics, Flexibilty training, Gait and locomotor training, Passive ROM and Active ROM For the Purpose of:: To decrease pain, To decrease swelling/inflammation, To increase ROM, To improve nutrient delivery to tissue, To increase oxygenation perfusion, To improve muscle performance and motor function, To improve ability to perform ADL's, To increase tolerance to activity/condition/posi tion, To improve health of tissue, To decrease soft tissue restriction and To increase flexibility/ROM Manual Therapy Techniques to Include: Mobilization, Passive ROM and Soft tissue mobilization For the Purpose of:: To decrease pain, To decrease swelling/inflammation, To increase ROM, To improve nutrient delivery to tissue, To increase oxygenation perfusion, To improve muscle performance and motor function, To decrease soft tissue restriction and To increase flexibility/ROM Cryotherapy (ice pack, ice massage): Yes Vasopneumati (more content not included)... Normal MCV (mean corpuscular volume ) determinationOrdered By: Sam Isabel on 09-13-2024 MCV (RBC) [Entitic vol] 89.1 fL 81-99 [facility] Mean corpuscular hemoglobin (MCH) determinationOrdered By: Sam Isabel on 09-13-2024 MCH (RBC) [Entitic mass] 29.6 pg 27.0-32.0 Mean corpuscular hemoglobin concentration (MCHC) determinationOrdered By: Sam Isabel on 09-13-2024 MCHC (RBC) [Mass/Vol] 33.2 g/dL 32-36 [facility] Mean platelet volume determi nationOrdered By: Sam Isabel on 09-13-2024 Platelet mean volume (Bld) [Entitic vol] 12.2 fL High 6.2-12.0 Platelet countOrdered By: Ra james Isabel on 09-13-2024 Platelets (Bld) [#/Vol] 435 10*3/uL 150-450 Potassium (Unsp spec) [Mass/ Vol]Ordered By: Sam Isabel on 09-13-2024 Potassium [Moles/Vol] 4.5 mmol/L 3.3-5.1 [facility] Potassium measurement (mass/ volume)Ordered By: Sam Isabel on 09-13-2024 Potassium (Unsp spec) [Mass/Vol] 4.5 mmol/L 3.3-5.1 RBC Auto (Bld) [#/Vol]Ordere d By: Sam Isabel on 09-13-2024 RBC (Bld) [#/Vol] 4.22 10*6/uL 4.2-5.4 [facility] Serum creatinine measurement (mass/volume)Ordered By: Sam Isabel on 09-13-2024 Creatinine [Mass/Vol] 0.79 mg/dL 0.70-1.20 [facility] Serum glucose measurement (m ass/volume)Ordered By: Sam Isabel on 09-13-2024 Glucose [Mass/Vol] 103 mg/dL High 70-99 [facility] Serum or plasma calcium gill urement (mass/volume)Ordered By: Sam Isabel on 09-13-2024 Calcium [Mass/Vol] 9.3 mg/dL 7.6-11.0 [facility] Serum or plasma urea nitroge n measurement (mass/volume)Ordered By: Sam Isabel on 09-13-2024 Urea nitrogen [Mass/Vol] 23 mg/dL High 4-19 Sodium levelOrdered By: Sam Isabel on 09-13-2024 Sodium [Moles/Vol] 139 mmol/L 133-145 [facility] White blood cell (WBC) count Ordered By: Sam Isabel on 09-13-2024 WBC (Bld) [#/Vol] 9.9 10*3/uL 4.4-11.0 [facility] .Auto Diffon 09-08-2024 Basophil, Absolute 0.0 10 3/mcL Normal 0.0-0.2 [facility] Comment on above: Performed By: #### G FR, BMP, ADIFF, ANEU, CBC #### [address] [address] Basophils/100 WBC (Bld) 0.1 % Normal 0.0-2.5 [facility] Comment on above: Performed By: #### G FR, BMP, ADIFF, ANEU, CBC #### [address] [address] Eosinophil, Absolute 0.0 10 3/mcL Normal 0.0-0.[address] [facility] Comment on above: Performed By: #### G FR, BMP, ADIFF, ANEU, CBC #### [address] [address] Eosinophils/100 WBC (Bld) 0.1 % Normal 0.0-7.0 [facility] Comment on above: Performed By: #### G FR, BMP, ADIFF, ANEU, CBC #### [address] [address] Lymphocyte, Absolute 1.4 10 3/mcL Normal 0.9-4.[address] [facility] Comment on above: Performed By: #### G FR, BMP, ADIFF, ANEU, CBC #### [address] [address] Lymphocytes/100 WBC (Bld) 7.4 % Low 20.0-40.0 [facility] Comment on above: Performed By: #### G FR, BMP, ADIFF, ANEU, CBC #### [address] [address] Monocyte, Absolute 1.3 10 3/mcL Normal 0.1-1.4 [facility] Comment on above: Performed By: #### G FR, BMP, ADIFF, ANEU, CBC #### [address] [address] Monocytes/100 WBC (Bld) 7.3 % Normal 2.0-13.0 [facility] Comment on above: Performed By: #### G FR, BMP, ADIFF, ANEU, CBC #### [address] [address] Neutrophils/100 WBC (Bld) 85.1 % High 50.0-75.0 [facility] Comment on above: Performed By: #### G FR, BMP, ADIFF, ANEU, CBC #### [address] [address] .GFRon 09-08-2024 Estimated Glomerular Filtration Rate 53 ml/min/1.73sqm Normal [facility] Comment on above: Result Comment: Stages of Chronic Kidney Disease (CKD) Stage Description eGFR(ml/min/1.73 sq.m.) CKD 1 Normal kidney function or >=90 normal kindney function with possible kidney damage (ex. Proteinuria) CKD 2 Kidney damage with mild loss 60-89 of kidney function CKD 3a Mild to moderate loss of kidney 45-59 function CKD 3b Moderate to severe loss of 30-44 of kindey function CKD 4 Severe loss of kidney function 15-29 CKD 5 Kidney failure <15 Note: (go live 2024) the eGFR calculation was updated to the 2020 CKD-EPI creatinine equation without a race factor to calculate the eGFR results. Performed By: #### G FR, BMP, ADIFF, ANEU, CBC #### [address] [address] .NEUABSon 09-08-2024 Neutrophil, Absolute 15.7 10 3/mcL High 2.3-8.1 [facility] Comment on above: Performed By: #### G FR, BMP, ADIFF, ANEU, CBC #### [address] [address] BMPon 09-08-2024 BUN/Creatinine Ratio 28 ratio High 7-27 [facility] Comment on above: Performed By: #### G FR, BMP, ADIFF, ANEU, CBC #### [address] [address] Calcium [Mass/Vol] 9.2 mg/dL Normal 8.4-10.2 [facility] Comment on above: Performed By: #### G FR, BMP, ADIFF, ANEU, CBC #### [address] [address] Chloride [Moles/Vol] 100 mmol/L Normal 98-107 [facility] Comment on above: Performed By: #### G FR, BMP, ADIFF, ANEU, CBC #### [address] [address] CO2 [Moles/Vol] 28 mmol/L Normal 23-31 [facility] Comment on above: Performed By: #### G FR, BMP, ADIFF, ANEU, CBC #### [address] [address] Creatinine [Mass/Vol] 1.15 mg/dL High 0.55-1.02 [facility] Comment on above: Result Comment: Test ing performed on Siemens Dimension EXL analyzer using a modified kinetic Jena technique. Performed By: #### G FR, BMP, ADIFF, ANEU, CBC #### [place] [address] Electrolyte Balance 9.0 mEq/L Normal 4.0-15.0 [facility] Comment on above: Performed By: #### G FR, BMP, ADIFF, ANEU, CBC #### [address] [address] Glucose [Mass/Vol] 113 mg/dL Normal 80-115 [facility] Comment on above: Performed By: #### G FR, BMP, ADIFF, ANEU, CBC #### [address] [address] Potassium [Moles/Vol] 5.0 mmol/L Normal 3.5-5.1 [facility] Comment on above: Performed By: #### G FR, BMP, ADIFF, ANEU, CBC #### [address] [address] Sodium [Moles/Vol] 137 mmol/L Normal 136-145 [facility] Comment on above: Performed By: #### G FR, BMP, ADIFF, ANEU, CBC #### [address] [address] Urea nitrogen [Mass/Vol] 32 mg/dL High 7-18 [facility] Comment on above: Performed By: #### G FR, BMP, ADIFF, ANEU, CBC #### [place] [address] CBCon 09-08-2024 Erythrocyte distribution width (RBC) [Ratio] 14.5 % Normal 11.5-15.5 [facility] Comment on above: Performed By: #### G FR, BMP, ADIFF, ANEU, CBC #### [place] [address] Hematocrit (Bld) [Volume fraction] 35.0 % Normal 34.0-46.0 [facility] Comment on above: Performed By: #### G FR, BMP, ADIFF, ANEU, CBC #### [place] [address] Hgb 11.7 G/dL Low 12.0-16.0 [facility] Comment on above: Performed By: #### G FR, BMP, ADIFF, ANEU, CBC #### [place] [address] MCH (RBC) [Entitic mass] 29.4 pg Normal 27.0-33.0 [facility] Comment on above: Performed By: #### G FR, BMP, ADIFF, ANEU, CBC #### [place] [address] MCHC 33.6 G/dL Normal 32.0-36.0 [facility] Comment on above: Performed By: #### G FR, BMP, ADIFF, ANEU, CBC #### [place] [address] MCV (RBC) [Entitic vol] 87.7 fL Normal 80.0-99.0 [facility] Comment on above: Performed By: #### G FR, BMP, ADIFF, ANEU, CBC #### [place] [address] Platelet 266 10 3/mcL Normal 150-450 [facility] Comment on above: Performed By: #### G FR, BMP, ADIFF, ANEU, CBC #### [place] [address] Platelet mean volume (Bld) [Entitic vol] 10.4 fL Normal 6.6-10.5 [facility] Comment on above: Performed By: #### G FR, BMP, ADIFF, ANEU, CBC #### [place] [address] [place], [place] [address] RBC 3.98 10 6/mcL Low 4.10-5.30 [facility] Comment on above: Performed By: #### G FR, BMP, ADIFF, ANEU, CBC #### [place] [address] [place], [place] [address] WBC 18.4 10 3/mcL High 4.5-10.8 [facility] Comment on above: Performed By: #### G FR, BMP, ADIFF, ANEU, CBC #### [address] [address] LABORATORYOrdered By: SYSTEM SYSTEM on 09-08-2024 Basophils (Bld) [#/Vol] 0.0 103/mcL Normal 0.0 - 0.2 10^3/mcL AO Workflow SS Basophils/100 WBC (Bld) 0.1 % Normal 0.0 - 2.5 % AO Workflow SS Calcium [Mass/Vol] 9.2 mg/dL Normal 8.4 - 10. 2 mg/dL AO ADM SS Chloride [Moles/Vol] 100 mmol/L Normal 98 - 10 7 mmol/L AO ADM SS CO2 [Moles/Vol] 28 mmol/L Normal 23 - 31 mmol/L AO ADM SS Creatinine [Mass/Vol] 1.15 mg/dL High 0.55 - 1.02 mg/dL AO ADM SS Comment on above: Interpretive Data: T esting performed on [employer] Dimension EXL analyzer using a modified kinetic Jena technique. Electrolyte Balance 9.0 mEq/L Normal 4.0 - 15 .0 mEq/L AO ADM SS Eosinophil, Absolute 0.0 103/mcL Normal 0.0 - 0 .7 10^3/mcL AO Workflow SS Eosinophils/100 WBC (Bld) 0.1 % Normal 0. 0 - 7.0 % AO Workflow SS Erythrocyte distribution width (RBC) [Ratio] 14.5 % Normal 11.5 - 15.5 % AO Workflow SS Estimated Glomerular Filtration Rate 53 ml/min/1.73sqm Invalid Interpretation Code AO Chemistry S Comment on above: Interpretive Data: Stages of Chronic Kidney Disease (CKD) Stage Description eGFR(ml/min/1.73 sq.m.) CKD 1 Normal kidney function or >=90 normal kindney function with possible kidney damage (ex. Proteinuria) CKD 2 Kidney damage with mild loss 60-89 of kidney function CKD 3a Mild to moderate loss of kidney 45-59 function CKD 3b Moderate to severe loss of 30-44 of kindey function CKD 4 Severe loss of kidney function 15-29 CKD 5 Kidney failure <15 Note: (go live 2024) the eGFR calculation was updated to the 2020 CKD-EPI creatinine equation without a race factor to calculate the eGFR results. Glucose [Mass/Vol] 113 mg/dL Normal 80 - 115 mg/dL AO ADM SS Hematocrit (Bld) [Volume fraction] 35.0 % Normal 34.0 - 46.0 % AO Workflow SS Hemoglobin (Bld) [Mass/Vol] 11.7 G/dL Low 12.0 - 16.0 G/dL AO Workflow SS Lymphocytes (Bld) [#/Vol] 1.4 103/mcL Normal 0. 9 - 4.3 10^3/mcL AO Workflow SS Lymphocytes/100 WBC (Bld) 7.4 % Low 20 .0 - 40.0 % AO Workflow SS MCH (RBC) [Entitic mass] 29.4 pg Normal 27. 0 - 33.0 pg AO Workflow SS MCHC 33.6 G/dL Normal 32.0 - 36.0 G/dL AO Workflow SS MCV (RBC) [Entitic vol] 87.7 fL Normal 80.0 - 99.0 fL AO Workflow SS Monocytes (Bld) [#/Vol] 1.3 103/mcL Normal 0.1 - 1.4 10^3/mcL AO Workflow SS Monocytes/100 WBC (Bld) 7.3 % Normal 2.0 - 13.0 % AO Workflow SS Neutrophils (Bld) [#/Vol] 15.7 103/mcL High 2. 3 - 8.1 10^3/mcL AO Workflow SS Neutrophils/100 WBC (Bld) 85.1 % High 50 .0 - 75.0 % AO Workflow SS Platelet mean volume (Bld) [Entitic vol] 10.4 fL Normal 6.6 - 10.5 fL AO Workflow SS Platelets (Bld) [#/Vol] 266 103/mcL Normal 150 - 450 10^3/mcL AO Workflow SS Potassium [Moles/Vol] 5.0 mmol/L Normal 3.5 - 5.1 mmol/L AO ADM SS RBC (Bld) [#/Vol] 3.98 106/mcL Low 4.10 - 5.30 10^6/mcL AO Workflow SS Sodium [Moles/Vol] 137 mmol/L Normal 136 - 145 mmol/L AO ADM SS Urea nitrogen [Mass/Vol] 32 mg/dL High 7 - 18 mg/dL AO ADM SS Urea nitrogen/Creatinine [Mass ratio] 28 ratio High 7 - 27 ratio AO ADM SS WBC (Bld) [#/Vol] 18.4 103/mcL High 4.5 - 10.8 10^3/mcL AO Workflow SS ABO/Rh (Gel)on 09-07-2024 ABO/Rh Interp Negative Invalid Interpretation Code [facility] Comment on above: Performed By: #### A STELLA ABSGEL #### [place] [id number] ABS (Gel)on 09-07-2024 ABSC Interp (Gel) Negative Normal [facility] Comment on above: Performed By: #### A STELLA ABSGEL #### [place] [address] LABORATORYOrdered By: Lucie Messina on 09-07-2024 ABO and Rh group Nom (Bld) Blood group O Rh(D) negative Invalid Interpretation Code AO BB Auto SS Blood group antibody screen Ql Negative ABSC (09/07/24 6:05 AM) Normal AO BB Auto SS US ANESTHESIA BLOCKon 2024 US ANESTHESIA BLOCK ORIGINAL Images acquired, not reported on this accession number. Normal [facility] XR KNEE 1 OR 2 VIEWS RIGHTon 09-07-2024 XR KNEE 1 OR 2 VIEWS RIGHT ORIGINAL HISTORY: Postop COMPARISON: No FINDINGS: There is an arthroplasty in near anatomic alignment. There is no radiographic evidence of loosening or failure of hardware. There are skin maximino and there is gas in the joint space and in the soft tissues. IMPRESSION: Arthroplasty with immediate postoperative changes. Interpreted by: Prashant Cedneo MD Preliminary Report By: Prashant Cedeno MD Electronically signed By Prashant Cedeno MD Dictated Date: 09/07/2024 8:57:28 AM Prelim Date: 09/07/2024 8:58:07 AM Sign Date: 09/07/2024 8:58:07 AM Ordering Provider: KWAKU Kelsey [facility] .Auto Diffon 08-16-2024 Basophil, Absolute 0.1 10 3/mcL Normal 0.0-0.2 [facility] Comment on above: Performed By: #### A LILA DOUGLAS #### [address] [address] Lymphocyte, Absolute 1.6 10 3/mcL Normal 0.9-4.[address] [facility] Comment on above: Performed By: #### A LILA DOUGLAS #### [address] [address] Monocyte, Absolute 0.7 10 3/mcL Normal 0.1-1.4 [facility] Comment on above: Performed By: #### LILA MONET #### [address] [address] .Auto DiffOrdered By: SYSTEM SYSTEM on 08-16-2024 Basophils/100 WBC (Bld) 0.8 % Normal 0.0-2.5 A O Workflow SS Comment on above: Performed By: #### LILA MONET #### [address] [address] Eosinophil, Absolute 0.2 103/mcL Normal 0.0-0.7 AO Workflow SS Comment on above: Performed By: #### A LILA DOUGLAS #### [address] [address] Eosinophils/100 WBC (Bld) 2.1 % Normal 0.0-7.0 AO Workflow SS Comment on above: Performed By: #### LILA MONET #### [address] [address] Lymphocytes/100 WBC (Bld) 15.5 % Low 20.0-40.0 AO Workflow SS Comment on above: Performed By: #### A LILA DOUGLAS #### [address] [address] Monocytes/100 WBC (Bld) 6.8 % Normal 2.0-13.0 A O Workflow SS Comment on above: Performed By: #### A LILA DOUGLAS #### [address] [place] [address] [place], [place] [address] Neutrophils/100 WBC (Bld) 74.8 % Normal 50.0-75.0 AO Workflow SS Comment on above: Performed By: #### A LILA DOUGLAS #### [place] [id number] [place], [place] [address] .GFROrdered By: SYSTEM [employer] on 08-16-2024 Estimated Glomerular Filtration Rate 81 ml/min/1.73sqm Normal AO Chemistry S Comment on above: Interpretive Data: Stages of Chronic Kidney Disease (CKD) Stage Description eGFR(ml/min/1.73 sq.m.) CKD 1 Normal kidney function or >=90 normal kindney function with possible kidney damage (ex. Proteinuria) CKD 2 Kidney damage with mild loss 60-89 of kidney function CKD 3a Mild to moderate loss of kidney 45-59 function CKD 3b Moderate to severe loss of 30-44 of kindey function CKD 4 Severe loss of kidney function 15-29 CKD 5 Kidney failure <15 Note: (go live 2024) the eGFR calculation was updated to the 2020 CKD-EPI creatinine equation without a race factor to calculate the eGFR results. Result Comment: Stages of Chronic Kidney Disease (CKD) Stage Description eGFR(ml/min/1.73 sq.m.) CKD 1 Normal kidney function or >=90 normal kindney function with possible kidney damage (ex. Proteinuria) CKD 2 Kidney damage with mild loss 60-89 of kidney function CKD 3a Mild to moderate loss of kidney 45-59 function CKD 3b Moderate to severe loss of 30-44 of kindey function CKD 4 Severe loss of kidney function 15-29 CKD 5 Kidney failure <15 Note: (go live 2024) the eGFR calculation was updated to the 2020 CKD-EPI creatinine equation without a race factor to calculate the eGFR results. Performed By: #### A LILA DOUGLAS #### [place] [id number] [place], [place] [address] .NEUABSon 08-16-2024 Neutrophil, Absolute 7.6 10 3/mcL Normal 2.3-8.[address] [facility] Comment on above: Performed By: #### A LILA DOUGLAS #### [address] [address] ABO/Rh (Gel)on 08-16-2024 ABO/Rh Interp Negative Invalid Interpretation Code [facility] Comment on above: Order Comment: SURG FAITH 3/4 -AC Performed By: #### A LILA DOUGLAS #### [address] [address] ABS (Gel)on 08-16-2024 ABSC Interp (Gel) Negative Normal [facility] Comment on above: Order Comment: SURG FAITH 3/4 -AC Performed By: #### A LILA DOUGLAS #### [address] [address] ALBon 08-16-2024 Albumin Level 4.2 G/dL Normal 3.4-4.8 [facility] Comment on above: Performed By: #### LILA MONET #### [address] [address] BMPon 08-16-2024 BUN/Creatinine Ratio 29 ratio High 7-27 [facility] Comment on above: Performed By: #### LILA MONET #### [address] [address] BMPOrdered By: SYSTEM SYSTEM on 08-16-2024 Calcium [Mass/Vol] 9.5 mg/dL Normal 8.4-10.2 AO ADM SS Comment on above: Performed By: #### LILA MONET #### [address] [address] Chloride [Moles/Vol] 101 mmol/L Normal 98-107 AO A DM SS Comment on above: Performed By: #### LILA MONET #### [address] [address] CO2 [Moles/Vol] 29 mmol/L Normal 23-31 AO ADM SS Comment on above: Performed By: #### LILA MONET #### [address] [address] Creatinine [Mass/Vol] 0.80 mg/dL Normal 0.55-1.02 AO ADM SS Comment on above: Interpretive Data: T esting performed on Siemens Dimension EXL analyzer using a modified kinetic Jena technique. Result Comment: Test ing performed on [employer] Dimension EXL analyzer using a modified kinetic Jena technique. Performed By: #### LILA MONET #### [address] [address] Electrolyte Balance 6.0 mEq/L Normal 4.0-15.0 AO AD M SS Comment on above: Performed By: #### A LILA DOUGLAS #### [address] [address] Glucose [Mass/Vol] 86 mg/dL Normal 80-115 AO ADM SS Comment on above: Performed By: #### LILA MONET #### [address] [address] Potassium [Moles/Vol] 4.5 mmol/L Normal 3.5-5.1 AO ADM SS Comment on above: Performed By: #### LILA MONET #### [address] [address] Sodium [Moles/Vol] 136 mmol/L Normal 136-145 AO ADM SS Comment on above: Performed By: #### LILA MONET #### [address] [address] Urea nitrogen [Mass/Vol] 23 mg/dL High 7-18 AO ADM SS Comment on above: Performed By: #### LILA MONET #### [address] [address] CBCOrdered By: SYSTEM SYSTEM on 08-16-2024 Erythrocyte distribution width (RBC) [Ratio] 13.9 % Normal 11.5-15.5 AO Workflow SS Comment on above: Order Comment: Pre-A dmission Testing Performed By: #### LILA MONET #### [address] [address] Hematocrit (Bld) [Volume fraction] 41.7 % Normal 34.0-46.0 AO Workflow SS Comment on above: Order Comment: Pre-A dmission Testing Performed By: #### A LILA DOUGLAS #### [address] [address] MCH (RBC) [Entitic mass] 29.7 pg Normal 27.0-33.0 AO Workflow SS Comment on above: Order Comment: Pre-A dmission Testing Performed By: #### A LILA DOUGLAS #### [address] [address] MCHC 34.1 G/dL Normal 32.0-36.0 AO Workflow SS Comment on above: Order Comment: Pre-A dmission Testing Performed By: #### A LILA DOUGLAS #### [address] [address] MCV (RBC) [Entitic vol] 87.2 fL Normal 80.0-99.0 A O Workflow SS Comment on above: Order Comment: Pre-A dmission Testing Performed By: #### A LILA DOUGLAS #### [address] [address] Platelet mean volume (Bld) [Entitic vol] 10.7 fL High 6.6-10.5 AO Workflow SS Comment on above: Order Comment: Pre-A dmission Testing Performed By: #### A LILA DOUGLAS #### [address] [address] CBCon 08-16-2024 Hgb 14.2 G/dL Normal 12.0-16.0 [facility] Comment on above: Order Comment: Pre-A dmission Testing Performed By: #### A LILA DOUGLAS #### [address] [address] Platelet 306 10 3/mcL Normal 150-450 [facility] Comment on above: Order Comment: Pre-A dmission Testing Performed By: #### A DEBRA DOUGLASGEL #### [address] [address] RBC 4.78 10 6/mcL Normal 4.10-5.30 [facility] Comment on above: Order Comment: Pre-A dmission Testing Performed By: #### A LILA DOUGLAS #### [facility] [address] [place], [place] [address] WBC 10.2 10 3/mcL Normal 4.5-10.8 [facility] Comment on above: Order Comment: Pre-A dmission Testing Performed By: #### A LILA DOUGLAS #### [facility] [address] [place], [place] [address] CT KNEE W/O CONTRAST RIGHTon 08-16-2024 CT KNEE W/O CONTRAST RIGHT ORIGINAL EXAMINATION: CT OF THE RIGHT KNEE WITHOUT CONTRAST 08/16/2024 12:44 pm TECHNIQUE: CT of the right knee was performed without the administration of intravenous contrast. Multiplanar reformatted images are provided for review. Automated exposure control, iterative reconstruction, and/or weight based adjustment of the mA/kV was utilized to reduce the radiation dose to as low as reasonably achievable. MA KO protocol was performed with axial images through the right hip and right ankle. COMPARISON: None. HISTORY ORDERING SYSTEM PROVIDED HISTORY: Reason for Exam: UNILATERAL PRIMARY OSTEOARTHRITIS, RIGHT KNEE Chronic arthritis rt knee. TARYN protocol. FINDINGS: There is no acute fracture or dislocation. There is no suspicious lytic or blastic osseous lesion. There is no aggressive periosteal reaction. Mild right femoroacetabular joint space narrowing. The pelvis is only partially visualized. Small knee joint effusion with calcified intra-articular bodies measuring up to 1 cm. Tricompartmental osteoarthritis of the right knee which is severe in the medial compartment with asymmetric joint space narrowing, [id number], subchondral cysts and marginal osteophyte formation. Spurring of the tibial spines and intercondylar notch. Subchondral cystic change in the lateral femoral condyle. Lateral coronal tibiofemoral subluxation. Quadriceps enthesopathy. There is no evidence of solid or cystic soft tissue mass. Limited evaluation of the neurovascular structures lack contrast. IMPRESSION: Tricompartmental osteoarthritis of the right knee which is severe in the medial compartment. Small knee joint effusion with calcified intra-articular bodies measuring up to 1 cm. Additional incidental findings as above. Interpreted by: Caterina Gomez Preliminary Report By: Caterina Gomez Electronically signed By Caterina Gomez Dictated Date: 08/16/2024 12:48:48 PM Prelim Date: 08/16/2024 12:52:03 PM Sign Date: 08/16/2024 12:52:03 PM Ordering Provider: KWAKU Kelsey [facility] LABORATORYOrdered By: Marvel Lozano on 08-16-2024 ABO and Rh group Nom (Bld) Blood group O Rh(D) negative Invalid Interpretation Code AO BB Auto SS Blood group antibody screen Ql Negative ABSC (08/16/24 12:00 PM) Normal AO BB Auto SS LABORATORYOrdered By: SYSTEM SYSTEM on 08-16-2024 Albumin BCP dye [Mass/Vol] 4.2 G/dL Normal 3.4 - 4.8 G/dL AO ADM SS Basophils (Bld) [#/Vol] 0.1 103/mcL Normal 0.0 - 0.2 10^3/mcL AO Workflow SS Hemoglobin (Bld) [Mass/Vol] 14.2 G/dL Normal 12.0 - 16.0 G/dL AO Workflow SS Lymphocytes (Bld) [#/Vol] 1.6 103/mcL Normal 0. 9 - 4.3 10^3/mcL AO Workflow SS Monocytes (Bld) [#/Vol] 0.7 103/mcL Normal 0.1 - 1.4 10^3/mcL AO Workflow SS Neutrophils (Bld) [#/Vol] 7.6 103/mcL Normal 2. 3 - 8.1 10^3/mcL AO Workflow SS Platelets (Bld) [#/Vol] 306 103/mcL Normal 150 - 450 10^3/mcL AO Workflow SS RBC (Bld) [#/Vol] 4.78 106/mcL Normal 4.10 - 5.30 10^6/mcL AO Workflow SS Urea nitrogen/Creatinine [Mass ratio] 29 ratio High 7 - 27 ratio AO ADM SS WBC (Bld) [#/Vol] 10.2 103/mcL Normal 4.5 - 10.8 10^3/mcL AO Workflow SS LABORATORYOrdered By: Ami Dinh on 08-16-2024 MRSA (PCR) Not Detected 1 (08/16/24 12:00 PM) Normal Not Detected AH Auto Viro/Sero SS Comment on above: Result Comment: Note s [id number] MRSA PCR Int MRSA DNA not detecte d by Real-Time Polymerase Chain Reaction (PCR). A negative result may be due to intermittent colonization. Colonization may vary depending on patient treatment, patient status, or exposure to high-risk environments.As with all PCR based in vitro diagnostic tests, extremely low levels of target below the limit of detection of the assay may be detected, but results may not be reproducible. Invalid Interpretation Code AH Auto Viro/Sero SS MRSAPCRon 08-16-2024 MRSA (PCR) Not detected Normal Not Detected [facility] Comment on above: Result Comment: Note s [id number] Performed By: #### A LILA DOUGLAS #### [address] [address] MRSA PCR Int Normal [facility] Comment on above: Result Comment: MRSA DNA not detected by Real-Time Polymerase Chain Reaction (PCR). A negative result may be due to intermittent colonization. Colonization may vary depending on patient treatment, patient status, or exposure to high-risk environments. As with all PCR based in vitro diagnostic tests, extremely low levels of target below the limit of detection of the assay may be detected, but results may not be reproducible. See Below Performed By: #### A LILA DOUGLAS #### [address] [place], [place] [address] Vitamin D 1,25-Dihydroxyon 0 08-09-2024 VIT D 1,25 DIHY 62.9 pg/mL Normal 24.8-81.5 Comment on above: Result Comment: Perf ormed at: [facility] [address] [id number] Traffic Administrator: Alexa Heath MD, Phone: [phone] Performed By: #### L 503.5773, L506.0250, L3300.0960, L3300.9910, L506.1000, L503.0105 #### Laboratory [address] [place], [address] Zinc, WHOLE BLOODon 08-09-19 25 Zinc Whole Bld 724 ug/dL Normal 440-860 Comment on above: Order Comment: Test( s) [id number], Whole Blood was developed and its performance characteristics determined by [facility]. It has not been cleared or approved by the Food and Drug Administration. Result Comment: Perf ormed at: BN - [facility] [address] [id number] Traffic Administrator: Alexa Heath MD, Phone: [phone] Performed By: #### L 5036550, L506.0250, L3300.0960, L3300.9910, L506.1000, L503.0105 #### Laboratory [address] [place], [place], [address] 1,25-dihydroxyvitamin D3 [Ma ss/Vol]Ordered By: Naveen Hong on 08-05-2024 Vitamin D 1,25-Dihydroxy 62.9 pg/mL 24.8-81.5 Comment on above: Performed at: [facility] [address] [id number] Director: Aleax Heath MD, Phone: [phone] [id number] DOrdered By: Sandra Hong on 08-05-2024 Vitamin D 25-Hydroxy 146.3 ng/mL [facility] Comment on above: Vitamin D 25(OH) Sta tus Range Deficiency <20 ng/mL (50nmol/L) Insufficiency 20 - 30 ng/mL (50 - 75 nmol/L) Sufficiency 30 - 100 ng/mL (75 - 250 nmol/L) Toxicity >100 ng/mL (>250 nmol/L)Evidence suggests that patients undergoing fluorescein dye angiography can retain small amounts of fluorescein in the body for up to 48 to 72 hours post-treatment. In the cases of patients with renal insufficiency, retention could be much longer. Samples containing fluorescein can produce falsely elevated values when tested with the Advia Centaur Vitamin D assay. With fluorescein interference, observed Vitamin D values can be as high as >150 ng/mL (>375 nmol/L). Samples should be resubmitted post fluorescein clearance to ensure there is no interference with Vitamin D test results. Ferritinon 08-05-2024 Ferritin [Mass/Vol] 53 ng/mL Normal 8-252 [facility] Comment on above: Performed By: #### L 503.6550, L506.0250, L3300.0960, L3300.9910, L506.1000, L503.0105 #### Laboratory [address] [place], [place], [id number] Ferritin measurementOrdered By: Naveen Hong on 08-05-2024 Ferritin [Mass/Vol] 53 ng/mL 8-252 [facility] Folates, (Folic Acid)on 07-09 FOLATES 15.80 ng/mL Normal 3.1-55.4 Comment on above: Order Comment: N Performed By: #### L 503.6550, L506.0250, L3300.0960, L3300.9910, L506.1000, L503.0105 #### Laboratory [address] [place], [place], [id number] Folic acid measurementOrdere d By: Naveen Hong on 08-05-2024 Folate 15.80 ng/mL 3.1-55.4 Serum or plasma calcitriol m easurement (mass/volume)Ordered By: Naveen Hong on 08-05-2024 1,25-dihydroxyvitamin D3 [Mass/Vol] 62.9 pg/mL 24.8-81.5 Comment on above: Performed at: [address] [id number] Director: Alexa Heath MD, Phone: [phone] Vitamin B12on 08-05-2024 Cobalamin (Vitamin B12) [Mass/Vol] 388 pg/mL Normal 91 Comment on above: Performed By: #### L 503.6550, L506.0250, L3300.0960, L3300.9910, L506.1000, L503.0105 #### Laboratory [address] [place], [place], [id number] Vitamin B12 measurementOrder ed By: Naveen Hong on 08-05-2024 Cobalamin (Vitamin B12) [Mass/Vol] 388 pg/mL Vitamin D,25 Hydroxyon 08-05 Vitamin D 25-OH 146.3 ng/mL Normal Comment on above: Result Comment: Swapna min D 25(OH) Status Range Deficiency <20 ng/mL (50nmol/L) Insufficiency 20 - 30 ng/mL (50 - 75 nmol/L) Sufficiency 30 - 100 ng/mL (75 - 250 nmol/L) Toxicity >100 ng/mL (>250 nmol/L) Evidence suggests that patients undergoing fluorescein dye angiography can retain small amounts of fluorescein in the body for up to 48 to 72 hours post-treatment. In the cases of patients with renal insufficiency, retention could be much longer. Samples containing fluorescein can produce falsely elevated values when tested with the Advia Centaur Vitamin D assay. With fluorescein interference, observed Vitamin D values can be as high as >150 ng/mL (>375 nmol/L). Samples should be resubmitted post fluorescein clearance to ensure there is no interference with Vitamin D test results. Performed By: #### L 503.6550, L506.0250, L3300.0960, L3300.9910, L506.1000, L503.0105 #### Laboratory [address] [place], [address] Zinc WBOrdered By: Naveen jain on 08-05-2024 Whole Blood Zinc 724 ug/dL 440-860 Comment on above: Performed at: [address] [id number] Director: Alexa Heath MD, Phone: [phone] l501.5101on 07-21-2024 GGTP 25 IU/L Normal 0-60 Comment on above: Order Comment: Order Date: 07/19/24Order Info: [id number] - GGTP Result Comment: Perf ormed at: CB - [facility] [address] [id number] Traffic Administrator: Doug Doyle PhD, Phone: [phone] Performed By: #### L 501.5101, L100.0500, L502.0250, L501.9520, L500.4050 #### [id number] [place], [place], [id number] Albumin to globulin ratioOrd ered By: Fer Prado on 07-19-2024 Albumin/Globulin [Mass ratio] 1.1 {ratio} 0.9-2.4 Bilirubin, totalOrdered By: Fer Prado on 07-19-2024 Bilirubin [Mass/Vol] 0.50 mg/dL 0.20-1.00 [facility] Comment on above: For patients on eltr ombopag therapy, use of Dimension [place] TBIL is not recommended. Blood urea nitrogen (BUN)/cr eatinine ratioOrdered By: Fer Prado on 07-19-2024 Urea nitrogen/Creatinine [Mass ratio] 34.2 mg/mg High 10-20 CBC-Complete Blood Cnt No Di ffon 07-19-2024 Erythrocyte distribution width (RBC) [Ratio] 13.5 % Normal 11.6-14.6 Comment on above: Order Comment: Order Date: 07/19/24Order Info: [id number] - CBC Performed By: #### L 501.5101, L100.0500, L502.0250, L501.9520, L500.4050 #### [id number] [place], [place], [id number]) Hematocrit (Bld) [Volume fraction] 45.8 % Normal 37-47 Comment on above: Order Comment: Order Date: 07/19/24Order Info: [id number] - CBC Performed By: #### L 501.5101, L100.0500, L502.0250, L501.9520, L500.4050 #### [id number] [place], [place], [phone]) Hemoglobin (Bld) [Mass/Vol] 14.2 g/dL Normal 12.0-15.0 Comment on above: Order Comment: Order Date: 07/19/24Order Info: [id number] - CBC Performed By: #### L 501.5101, L100.0500, L502.0250, L501.9520, L500.4050 #### [id number] [place], [address] MCH (RBC) [Entitic mass] 28.0 pg Normal 27.0-32.0 Comment on above: Order Comment: Order Date: 07/19/24Order Info: [id number] - CBC Performed By: #### L 501.5101, L100.0500, L502.0250, L501.9520, L500.4050 #### [id number] [place], [address] MCHC (RBC) [Mass/Vol] 31.0 g/dL Low 32-36 [facility] Comment on above: Order Comment: Order Date: 07/19/24Order Info: [id number] - CBC Performed By: #### L 501.5101, L100.0500, L502.0250, L501.9520, L500.4050 #### [id number] [place], [address] MCV (RBC) [Entitic vol] 90.3 fL Normal 81-99 [facility] Comment on above: Order Comment: Order Date: 07/19/24Order Info: [id number] - CBC Performed By: #### L 501.5101, L100.0500, L502.0250, L501.9520, L500.4050 #### [id number] [place], [address] Platelet mean volume (Bld) [Entitic vol] 12.3 fL High 6.2-12.0 Comment on above: Order Comment: Order Date: 07/19/24Order Info: [id number] - CBC Performed By: #### L 501.5101, L100.0500, L502.0250, L501.9520, L500.4050 #### [address] [place], [address] Platelets (Bld) [#/Vol] 322 10*3/uL Normal 150-450 Comment on above: Order Comment: Order Date: 07/19/24Order Info: [id number] - CBC Performed By: #### L 501.5101, L100.0500, L502.0250, L501.9520, L500.4050 #### [id number] [place], [address] RBC (Bld) [#/Vol] 5.07 10*6/uL Normal 4.2-5.4 [facility] Comment on above: Order Comment: Order Date: 07/19/24Order Info: [id number] - CBC Performed By: #### L 501.5101, L100.0500, L502.0250, L501.9520, L500.4050 #### [id number] [place], [address] RDW SD 45.1 fl High 35.1-43.9 Comment on above: Order Comment: Order Date: 07/19/24Order Info: [id number] - CBC Performed By: #### L 501.5101, L100.0500, L502.0250, L501.9520, L500.4050 #### [id number] [place], [address] WBC (Bld) [#/Vol] 7.6 10*3/uL Normal 4.4-11.0 [facility] Comment on above: Order Comment: Order Date: 07/19/24Order Info: [id number] - CBC Performed By: #### L 501.5101, L100.0500, L502.0250, L501.9520, L500.4050 #### [id number] [place], [address] Carbon dioxide measurementOr dered By: Fer Prado on 07-19-2024 CO2 [Moles/Vol] 22.0 mmol/L 21.0-32.0 Chloride measurementOrdered By: Fer Prado on 07-19-2024 Chloride [Moles/Vol] 102 mmol/L 98-107 [facility] Comprehensive Metabolic Prof ilon 07-19-2024 Albumin [Mass/Vol] 4.3 g/dL Normal 3.2-5.0 [facility] Comment on above: Order Comment: Order Date: 07/19/24Order Info: [id number] - CMPOrder Info: 301-3 - TSH Performed By: #### L 501.5101, L100.0500, L502.0250, L501.9520, L500.4050 #### [id number] [place], [address] Albumin/Globulin [Mass ratio] 1.1 {ratio} Normal 0.9-2.4 Comment on above: Order Comment: Order Date: 07/19/24Order Info: [id number] - CMPOrder Info: [id number] - TSH Performed By: #### L 501.5101, L100.0500, L502.0250, L501.9520, L500.4050 #### [id number] [place], [address] ALK P 107 U/L Normal 45-117 Comment on above: Order Comment: Order Date: 07/19/24Order Info: 0786-1 - CMPOrder Info: 301-3 - TSH Performed By: #### L 501.5101, L100.0500, L502.0250, L501.9520, L500.4050 #### [address] [place], [address] ALT [Catalytic activity/Vol] 46 U/L Normal 13-56 Comment on above: Order Comment: Order Date: 07/19/24Order Info: [id number] - CMPOrder Info: [id number] - TSH Performed By: #### L 501.5101, L100.0500, L502.0250, L501.9520, L500.4050 #### [id number] [place], [address] AST [Catalytic activity/Vol] 28 U/L Normal 15-37 Comment on above: Order Comment: Order Date: 07/19/24Order Info: 0786-1 - CMPOrder Info: [id number] - TSH Performed By: #### L 501.5101, L100.0500, L502.0250, L501.9520, L500.4050 #### [id number] [place], [address] Bilirubin [Mass/Vol] 0.50 mg/dL Normal 0.20-1.00 [facility] Comment on above: Order Comment: Order Date: 07/19/24Order Info: 0786-1 - CMPOrder Info: [id number] - TSH Result Comment: For patients on eltrombopag therapy, use of Dimension [place] TBIL is not recommended. Performed By: #### L 501.5101, L100.0500, L502.0250, L501.9520, L500.4050 #### [address] [place], [address] BUN/CRE 34.2 RATIO High 10-20 Comment on above: Order Comment: Order Date: 07/19/24Order Info: 0786-1 - CMPOrder Info: [id number] - TSH Performed By: #### L 501.5101, L100.0500, L502.0250, L501.9520, L500.4050 #### [id number] [place], [address] CA,Total 9.6 mg/dL Normal 8.5-10.1 Comment on above: Order Comment: Order Date: 07/19/24Order Info: 0786-1 - CMPOrder Info: [id number] - TSH Performed By: #### L 501.5101, L100.0500, L502.0250, L501.9520, L500.4050 #### [id number] [place], [address] Chloride [Moles/Vol] 102 mmol/L Normal 98-107 [facility] Comment on above: Order Comment: Order Date: 07/19/24Order Info: 0786-1 - CMPOrder Info: [id number] - TSH Performed By: #### L 501.5101, L100.0500, L502.0250, L501.9520, L500.4050 #### [address] [place], [address] CO2 [Moles/Vol] 22.0 mmol/L Normal 21.0-32.0 Comment on above: Order Comment: Order Date: 07/19/24Order Info: 0786-1 - CMPOrder Info: 3 - TSH Performed By: #### L 501.5101, L100.0500, L502.0250, L501.9520, L500.4050 #### [address] [place], [address] Creatinine [Mass/Vol] 0.79 mg/dL Normal 0.55-1.02 [facility] Comment on above: Order Comment: Order Date: 07/19/24Order Info: 0786-1 - CMPOrder Info: 3 - TSH Result Comment: The validity of the calculated GFR GFRAA in patients over 70 years has not been determined. Clinical correlation is essential. Performed By: #### L 501.5101, L100.0500, L502.0250, L501.9520, L500.4050 #### [address] [place], [address] EST GFR - AA 94 mL/min Normal >60 Comment on above: Order Comment: Order Date: 07/19/24Order Info: [id number] - CMPOrder Info: 3 - TSH Result Comment: Afri can [place] GFR Calc Performed By: #### L 501.5101, L100.0500, L502.0250, L501.9520, L500.4050 #### [address] [place], [address] GAP 8 Normal 5-15 Comment on above: Order Comment: Order Date: 07/19/24Order Info: 0786-1 - CMPOrder Info: [id number] - TSH Performed By: #### L 501.5101, L100.0500, L502.0250, L501.9520, L500.4050 #### [address] [place], [address] GFR/1.73 sq M.predicted among non-blacks MDRD (S/P/Bld) [Vol rate/Area] 78 mL/min/{1.73_m2} Normal >60 [facility] Comment on above: Order Comment: Order Date: 07/19/24Order Info: 0786-1 - CMPOrder Info: [id number] - TSH Result Comment: Non- GFR Calc Performed By: #### L 501.5101, L100.0500, L502.0250, L501.9520, L500.4050 #### [id number] [place], [address] Globulin (S) [Mass/Vol] 4.0 g/dL Normal 2.2-4.2 [facility] Comment on above: Order Comment: Order Date: 07/19/24Order Info: 0786-1 - CMPOrder Info: 3016-3 - TSH Performed By: #### L 501.5101, L100.0500, L502.0250, L501.9520, L500.4050 #### [address] [place], [address] Glucose [Mass/Vol] 70 mg/dL Low 74-106 [facility] Comment on above: Order Comment: Order Date: 07/19/24Order Info: 0786-1 - CMPOrder Info: 3 - TSH Performed By: #### L 501.5101, L100.0500, L502.0250, L501.9520, L500.4050 #### [id number] [place], [address] Potassium [Moles/Vol] 4.2 mmol/L Normal 3.5-5.1 [facility] Comment on above: Order Comment: Order Date: 07/19/24Order Info: 0786-1 - CMPOrder Info: 3 - TSH Performed By: #### L 501.5101, L100.0500, L502.0250, L501.9520, L500.4050 #### [id number] [place], [address] Sodium [Moles/Vol] 133 mmol/L Low 136-145 [facility] Comment on above: Order Comment: Order Date: 07/19/24Order Info: 0786- - CMPOrder Info: 3 - TSH Performed By: #### L 501.5101, L100.0500, L502.0250, L501.9520, L500.4050 #### [id number] [place], [address] T PROT 8.3 g/dL High 6.4-8.2 Comment on above: Order Comment: Order Date: 07/19/24Order Info: 0786-1 - CMPOrder Info: 3 - TSH Performed By: #### L 501.5101, L100.0500, L502.0250, L501.9520, L500.4050 #### [address] [place], [address] Urea nitrogen [Mass/Vol] 27 mg/dL High 7-18 Comment on above: Order Comment: Order Date: 07/19/24Order Info: 0786- - CMPOrder Info: 3 - TSH Performed By: #### L 501.5101, L100.0500, L502.0250, L501.9508, L500.4050 #### [id number] [place], [address] Erythrocyte distribution wid th ratioOrdered By: Fer Prado on 07-19-2024 Erythrocyte distribution width (RBC) [Ratio] 13.5 % 11.6-14.6 Erythrocyte distribution wid th standard deviationOrdered By: Fer Prado on 07-19-2024 Erythrocyte distribution width (RBC) [Entitic vol] 45.1 fL High 35.1-43.9 [facility] Erythrocyte distribution width (RBC) [Ratio] 45.1 fl High 35.1-43.9 Estimated glomerular filtrat ion rate (GFR) AmericanOrdered By: Fer Prado on 07-19-2024 Estimated GFR (MDRD) Amer 94 mL/min >60 Comment on above: GFR Calc Gamma glutamyl transferase ( GGT) measurementOrdered By: Fer Prado on 07-19-2024 Amylase [Catalytic activity/Vol] 25 U/L 0-60 Comment on above: Performed at: [address] Director: Doug Doyle PhD, Phone: [phone] Glomerular filtration rate ( GFR) estimationOrdered By: Fer Prado on 07-19-2024 Estimated GFR (MDRD) Non-Af Amer 78 mL/min >60 Comment on above: Non- GFR Calc GFR/1.73 sq M.predicted among non-blacks MDRD (S/P/Bld) [Vol rate/Area] 78 mL/min/{1.73_m2} >60 [facility] Comment on above: Non- GFR Calc Glucose measurementOrdered B y: Fer Prado on 07-19-2024 Glucose [Mass/Vol] 70 mg/dL Low 74-106 [facility] Hematocrit Auto (Bld) [Volum e fraction]Ordered By: Fer Prado on 07-19-2024 Hematocrit (Bld) [Volume fraction] 45.8 % 37-47 Hemoglobin measurementOrdere d By: Fer Prado on 07-19-2024 Hemoglobin (Bld) [Mass/Vol] 14.2 g/dL 12.0-15.0 Laboratory - Chemistry and C hemistry - challengeOrdered By: Fer Prado on 07-19-2024 AST [Catalytic activity/Vol] 28 U/L 15-37 MCV (mean corpuscular volume ) determinationOrdered By: Fer Prado on 07-19-2024 MCV (RBC) [Entitic vol] 90.3 fL 81-99 [facility] Mean corpuscular hemoglobin (MCH) determinationOrdered By: Fer Prado on 07-19-2024 MCH (RBC) [Entitic mass] 28.0 pg 27.0-32.0 Mean corpuscular hemoglobin concentration (MCHC) determinationOrdered By: Fer Prado on 07-19-2024 MCHC (RBC) [Mass/Vol] 31.0 g/dL Low 32-36 [facility] Mean platelet volume determi nationOrdered By: Fer Prado on 07-19-2024 Platelet mean volume (Bld) [Entitic vol] 12.3 fL High 6.2-12.0 Microalb:Creat Ratio,Random URon 07-19-2024 Creatinine [Mass/Vol] 31.60 mg/dL Normal NO RAN GE EST. Comment on above: Order Comment: Order Date: 07/19/24Order Info: [id number] - MIACRE Performed By: #### L 501.5101, L100.0500, L502.0250, L501.9520, L500.4050 #### [id number] [place], [place], [id number] MALB:CRE 19.5 mg/g CRE Normal <30 mg/g CRE Comment on above: Order Comment: Order Date: 07/19/24Order Info: [id number] - MIACRE Performed By: #### L 501.5101, L100.0500, L502.0250, L501.9520, L500.4050 #### [address] [place], [address] MICROALBUMIN,UR 6.2 mg/L Normal NO RANGE EST. Comment on above: Order Comment: Order Date: 07/19/24Order Info: [id number] - MIACRE Performed By: #### L 501.5101, L100.0500, L502.0250, L501.9520, L500.4050 #### [id number] [place], [address] Platelet countOrdered By: Justice Prado on 07-19-2024 Platelets (Bld) [#/Vol] 322 10*3/uL 150-450 Potassium measurementOrdered By: Fer Prado on 07-19-2024 Potassium [Moles/Vol] 4.2 mmol/L 3.5-5.1 [facility] RBC Auto (Bld) [#/Vol]Ordere d By: Fer Prado on 07-19-2024 RBC (Bld) [#/Vol] 5.07 10*6/uL 4.2-5.4 [facility] Random urine microalbumin me asurementOrdered By: Fer Prado on 07-19-2024 Urine Random Microalbumin 6.2 mg/L NO RANGE EST. Serum anion gap measurementO rdered By: Fer Prado on 07-19-2024 Anion gap [Moles/Vol] 8 mmol/L 5-15 [facility] Serum globulin measurementOr dered By: Fer Prado on 07-19-2024 Globulin (S) [Mass/Vol] 4.0 g/dL 2.2-4.2 [facility] Serum or plasma alanine coffman otransferase (ALT) measurementOrdered By: Fer Prado on 07-19-2024 ALT [Catalytic activity/Vol] 46 U/L - Serum or plasma albumin gill urement (mass/volume)Ordered By: Fer Prado on 07-19-2024 Albumin [Mass/Vol] 4.3 g/dL 3.2-5.0 [facility] Serum or plasma alkaline arielle sphatase measurementOrdered By: Fer Prado on 07-19-2024 ALP [Catalytic activity/Vol] 107 U/L 45-117 Serum or plasma calcium gill urement (mass/volume)Ordered By: Fer Prado on 07-19-2024 Calcium [Mass/Vol] 9.6 mg/dL 8.5-10.1 [facility] Serum or plasma creatinine m easurement (mass/volume)Ordered By: Fer Prado on 07-19-2024 Creatinine [Mass/Vol] 0.79 mg/dL 0.55-1.02 [facility] Comment on above: The validity of the calculated GFR & GFRAA in patients over 70 years has not been determined. Clinical correlation is essential. Serum or plasma thyroid stim ulating hormone (TSH) measurement (units/volume)Ordered By: Fer Prado on 07-19-2024 TSH Qn 1.130 uIU/mL 0.358-3.74 0 Serum or plasma urea nitroge n measurement (mass/volume)Ordered By: Fer Prado on 07-19-2024 Urea nitrogen [Mass/Vol] 27 mg/dL High 7-18 Sodium levelOrdered By: Fer Prado on 07-19-2024 Sodium [Moles/Vol] 133 mmol/L Low 136-145 [facility] TSH QnOrdered By: Fer Prado on 07-19-2024 Thyroid Stimulating Hormone (TSH) 1.130 uIU/mL 0.358-3.74 0 Thyroid Stim Hormone (TSH)on 07-19-2024 TSH 1.130 uIU/mL Normal 0.358-3.74 0 Comment on above: Order Comment: Order Date: 07/19/24Order Info: [id number] - CMPOrder Info: 3016-3 - TSH Performed By: #### L 501.5101, L100.0500, L502.0250, L501.9520, L500.4050 #### [address] [place], [address] Total proteinOrdered By: Chinyere Prado on 07-19-2024 Protein [Mass/Vol] 8.3 g/dL High 6.4-8.2 [facility] Urine albumin/creatinine rat io for detection of microalbuminuriaOrdered By: Fer Prado on 07-19-2024 Urine Microalbumin/Creatinine Ratio 19.5 mg/g CRE <30 Urine creatinine measurement (mass/volume)Ordered By: Fer Prado on 07-19-2024 Creatinine (U) [Mass/Vol] 31.60 mg/dL NO RANGE EST. White blood cell (WBC) count Ordered By: Fer Prado on 07-19-2024 WBC (Bld) [#/Vol] 7.6 10*3/uL 4.4-11.0 [facility] AST(SGOT)on 06-14-2024 AST [Catalytic activity/Vol] 24 U/L Normal Comment on above: Performed By: #### L 501.4405, L501.4100 #### [id number] [place], [place], [id number] Alanine Aminotransferas (SGP T)on 06-14-2024 ALT [Catalytic activity/Vol] 43 U/L Normal Comment on above: Performed By: #### L 501.4405, L501.4100 #### [id number] [place], [place], [id number] Laboratory - Chemistry and C hemistry - challengeOrdered By: James Flynn on 06-14-2024 AST [Catalytic activity/Vol] 24 U/L Serum or plasma alanine coffman otransferase (ALT) measurementOrdered By: James Flynn on 06-14-2024 ALT [Catalytic activity/Vol] 43 U/L AST(SGOT)on 05-03-2024 AST [Catalytic activity/Vol] 22 U/L Normal Comment on above: Performed By: #### L 501.4405, L501.4100 #### [address] [place], [place], [id number] Alanine Aminotransferas (SGP T)on 05-03-2024 ALT [Catalytic activity/Vol] 43 U/L Normal 13-56 Comment on above: Performed By: #### L 501.4405, L501.4100 #### [id number] [place], [place], [id number] Lower Ext Joint Only W/WO Co nton 03-10-2024 Lower Ext Joint Only W/WO Cont [facility] Imaging Services [address] [place], [place] [address] Lower Ext Joint Only W/WO Cont MR#: [id number] Acct: [id number] Name: KIM MOSQUERA Rep #: [id number] : 1960 F 63 From: Mikel August MD PCP: Dr. Fer Prado MD Status: REG CLI Study: Lower Ext Joint Only W/WO Cont Date of Exam: 0 03/10/24 Exam# [id number] Ordering [place]: [place] [id number] STUDY: MRI LEFT HIP, WITHOUT AND WITH IV CONTRAST REASON FOR EXAM: Female, 63 years old. PAIN, F/U CYST TECHNIQUE: Standardized fat and water weighted pulse sequences were obtained in all 3 orthogonal planes. Following the intravenous administration of 15 cc Clariscan contrast, additional postcontrast imaging was obtained. COMPARISON: Left hip MRI dated 01/30/2024. FINDINGS: There is unchanged degenerative arthrosis of the left hip joint with joint space narrowing, marginal osteophyte formation, and chronic deformity of the superolateral aspect of the left femoral head. Again seen is a 2.0 cm subchondral cyst in the left anterior-superior acetabulum, with thin peripheral enhancement following IV contrast administration (coronal postcontrast T1 series 12 images 12-13), compatible with a benign degenerative cyst. There is a persistent tiny left hip joint effusion. There is a suspected left anterior acetabular labrum tear, with adjacent 3 mm paralabral cyst (sagittal PD series 8 images 8-9). Normal gluteus minimus, medius and iliopsoas tendons and distal insertions. There is no trochanteric, iliopsoas or iliopectineal bursitis. Normal superior and inferior pubic rami. Normal pubic symphysis. Normal ischial tuberosity. Normal origin of the hamstring tendons. Normal visualized iliac wing, sacroiliac joint, and sacral ala. Normal visualized soft tissue structures of the pelvis. There is degenerative disc disease in the visualized lumbosacral spine. There is no abnormal enhancing lesion. MRI/Lower Ext Joint Only W/WO Cont IMPRESSION: Unchanged degenerative arthrosis of the left hip joint. 2.0 cm benign degenerative cyst in the left anterior-superior acetabulum. Persistent tiny left hip joint effusion. Suspected left anterior acetabular labral tear, with adjacent 3 mm paralabral cyst. No abnormal enhancing lesion. Electronically Signed: Mikel August MD at 13:57 EDT Reading Location ID and State: [address] [place] [address] , Service support , CC: Dr. Fer Prado MD; Dr. Kwaku Arteaga MD Pole Classifier: Signed Normal 12 Lead EKGon 03-01-2024 12 Lead EKG [facility] Cardiovascular Services [address] [place] [place] [address] 12 Lead EKG 03/01/24 0910 MR#: [id number] Acct: [id number] Name: KIM MOSQUERA Rep #: [id number] : 1960 63 From: Santosh Petit MD Attending Dr: Dr. Kwaku Arteaga MD Status: REG CLI Ordering Dr: Kwaku Arteaga MD Date: 03/01/24 Location: [facility] Sex: F C Admitted: Test Reason : PRE OP Blood Pressure : / mmHG Vent. Rate : 070 BPM Atrial Rate : 070 BPM P-R Int : 166 ms QRS Dur : 074 ms QT Int : 382 ms P-R-T Axes : 065 040 058 degrees QTc Int : 412 ms Normal sinus rhythm Normal ECG Confirmed by Santosh Petit ([id number]), pictures editor MALINA CONTRERAS ([id number]) on 03/01/2024 10:25:39 AM Referred By: Kwaku Arteaga Confirmed By:Santosh Petit 03/01/24 1025 Date Santosh Petit MD CC: Dr. Fer Prado MD; Dr. Kwaku Arteaga MD Signed Normal Serum Creatinine AND GFRon 0 03-01-2024 Creatinine [Mass/Vol] 0.91 mg/dL Normal 0.55-1.02 [facility] Comment on above: Result Comment: The validity of the calculated GFR GFRAA in patients over 70 years has not been determined. Clinical correlation is essential. Performed By: #### L 501.1105 #### [id number] [place], [place], [id number] EST GFR - AA 80 mL/min Normal >60 Comment on above: Result Comment: Afri can [place] GFR Calc Performed By: #### L 501.1105 #### [id number] [place], [place], [id number] GFR/1.73 sq M.predicted among non-blacks MDRD (S/P/Bld) [Vol rate/Area] 66 mL/min/{1.73_m2} Normal >60 [facility] Comment on above: Result Comment: Non- GFR Calc Performed By: #### L 501.1105 #### [id number] [place], [place], [address] Dexa Bone Density Studyon Dexa Bone Density Study [facility] Imaging Services [address] [place], [place] [id number] Dexa Bone Density Study MR#: [id number] Acct: [id number] Name: KIM MOSQUERA Rep #: [id number] : 1960 F 63 From: Oliverio rascon MD PCP: Dr. Fer Prado MD Status: REG CLI Study: Dexa Bone Density Study Date of Exam: 02/05/24 Exam# [id number] Ordering Dr: [place] [id number] STUDY: DUAL ENERGY X-RAY ABSORPTIOMETRY / DXA REASON FOR EXAM: Female, 63 years old. [id number] TECHNIQUE: Bone Mineral Density (BMD) measurements of lumbar spine and bilateral hips were obtained. COMPARISON: Comparison is made with prior study dated November 24, 2018. FINDINGS: Lumbar Spine (L1-L4): g/cm2 (0.910) / T-score (-1.0) / Z-score (0.8) Findings are suggestive of normal bone density with a low fracture risk. Left Femur Total: g/cm2 (0.759) / T-score (-1.5) / Z-score (-0.2) Left Femoral Neck: g/cm2 (0.683) / T-score (-1.5) / Z-score (0.0) Right Femur Total: g/cm2 (0.701) / T-score (-2.0) / Z-score (-0.7) Right Femoral Neck: g/cm2 (0.584) / T-score (-2.4) / Z-score (-0.8) The T-Scores on the most recent prior examination were: Lumbar Spine (L1-L4): There has been worsening of bone density since the previous examination. Left Femur Total: which represents a worsening of 3.7%. Right Femur Total: which represents a worsening of 8.7%. BD/Dexa Bone Density Study IMPRESSION: The patient is considered osteopenic as outlined below according to World Yaw Organization (WHO) criteria with a high fracture risk. There has been worsening of bone density since the previous examination. Reference Information: The T-score is the number of standard deviations above or below the standard which is normal for young adults at their peak bone mineral density. The World Health Organization (WHO) interprets the T-scores as follows: Above -1 Normal bone density Between -1 and -2.5 Osteopenia Equal to / or below -2.5 Osteoporosis As a practical clinical guideline, osteopenia may be graded as follows: Mild -1 through -1.5 Moderate -1.6 through -2.0 Severe -2.1 through -2.4 The Z-score is the number of standard deviations above or below age-matched controls. A Z-score of less than -1.5 would be considered abnormal. References: 1. NIH Osteoporosis and Related Bone Diseases www osteo.org 2. International Society for Clinical Densitometry www iscd.org 3. National Osteoporosis Foundation www nof.org Electronically Signed: Oliverio Vela MD at 15:05 EDT , CC: Dr. Fer Prado MD Pole Classifier: Signed Normal Lower Ext Joint Only (Routin e)on 01-30-2024 Lower Ext Joint Only (Routine) [facility] Imaging Services [address] [place], [place] [id number] Lower Ext Joint Only (Routine) MR#: [id number] Acct: [id number] Name: KIM MOSQUERA Rep #: [id number] : 1960 F 63 From: David Kingsley MD PCP: Dr. Fer Prado MD Status: [facility] Study: Lower Ext Joint Only (Routine) Date of Exam: 0 01/30/24 Exam# [id number] Ordering Dr: Fer Prado MD ADDENDUM by Dr. David Kingsley MD on 02/22/24 at 2120 ==== ADDENDUM ==== [id number] The follow-up study should be a COMPLETE study without and with IV contrast. This allows direct comparison between the noncontrast and the post-IV contrast images to determine if there is enhancement. Electronically Signed: David Kingsley MD at 21:20 EDT , 02/22/242119 Date cc: Dr. Fer Prado MD * Signed ADDENDUM by Dr. David Kingsley MD on 02/20/24 at 2110 ==== ADDENDUM ==== [id number] IV contrast would be useful on a subsequent follow-up examination in one month. Electronically Signed: David Kingsley MD at 21:11 EDT , 02/20/242110 Date cc: Dr. Fer Prado MD * Signed ADDENDUM by Dr. David Kingsley MD on 02/22/24 at 2119 MRI/Lower Ext Joint Only (Routine) IMPRESSION: undefined 02/22/242126 Date cc: Dr. Fer Prado MD * Signed ADDENDUM by Dr. David Kingsley MD on 02/20/24 at 2110 MRI/Lower Ext Joint Only (Routine) IMPRESSION: undefined 02/20/242117 Date cc: Dr. Fer Prado MD * Signed [id number] EXAM: MR LEFT LOWER EXTREMITY WITHOUT INTRAVENOUS CONTRAST, HIP CLINICAL INDICATION: Avascular Necrosis, abnormal xray TECHNIQUE: Multiplanar and multisequence MR images of the left hip without intravenous contrast. COMPARISON: No relevant prior studies available. FINDINGS: TENDONS: FLEXORS: Unremarkable. Intact. EXTENSORS/HAMSTRING: Unremarkable. Intact. ABDUCTORS: Unremarkable. Intact. ADDUCTORS: Unremarkable. Intact. ROTATORS: Unremarkable. Intact. MUSCLES: Unremarkable. Normal bulk and signal. FLUID: Unremarkable. No joint effusion. No trochanteric bursitis. LABRUM: Signal alteration at the anterosuperior labrum potentially representing a labral tear. CARTILAGE: Complex T2 hyperintense and potentially cystic lesion involving the anterior left acetabular roof. There is adjacent marrow edema. This could be fibrous or chondroid in composition also. This does not appear aggressive. BONES/JOINTS: Small amount of hip joint fluid bilaterally with synovitis and a left-sided. Irregularity at the left femoral head with adjacent marrow edema may be degenerative or traumatic/microtraumati c in nature but in any case appears to be chronic. Multilevel spine degenerative changes. OTHER SOFT TISSUES: Unremarkable. MRI/Lower Ext Joint Only (Routine) IMPRESSION: 1. Complex T2 hyperintense and potentially cystic lesion involving the anterior left acetabular roof. There is adjacent marrow edema. This could be fibrous or chondroid in composition also. This does not appear aggressive. Follow-up IV contrast enhanced evaluation would be useful to exclude enhancement such as can be seen with a neoplasm. 2. Signal alteration at the anterosuperior labrum potentially representing a labral tear. This can be further assessed with MR arthrography. 3. Small left hip joint effusion with synovitis. Electronically Signed: David Kingsley MD at 22:00 EDT , CC: Dr. Fer Prado MD Pole Classifier: Signed Normal Basic Metabolic Profile (BMP )on 01-15-2024 BUN/CRE 42.6 RATIO High 10-20 Comment on above: Order Comment: Order Date: 01/15/24Order Info: 0667- - BMP Performed By: #### L 500.2500, L502.0250 #### [id number] [place], [address] CA,Total 9.6 mg/dL Normal 8.5-10.1 Comment on above: Order Comment: Order Date: 01/15/24Order Info: 0667- - BMP Performed By: #### L 500.2500, L502.0250 #### [id number] [place], [address] Chloride [Moles/Vol] 105 mmol/L Normal 98-107 [facility] Comment on above: Order Comment: Order Date: 01/15/24Order Info: 0667-1 - BMP Performed By: #### L 500.2500, L502.0250 #### [id number] [place], [address] CO2 [Moles/Vol] 20.0 mmol/L Low 21.0-32.0 Comment on above: Order Comment: Order Date: 01/15/24Order Info: 0667-1 - BMP Performed By: #### L 500.2500, L502.0250 #### [id number] [place], [address] Creatinine [Mass/Vol] 1.01 mg/dL Normal 0.55-1.02 [facility] Comment on above: Order Comment: Order Date: 01/15/24Order Info: 666-07 - BMP Result Comment: The validity of the calculated GFR GFRAA in patients over 70 years has not been determined. Clinical correlation is essential. Performed By: #### L 500.2500, L502.0250 #### [id number] [place], [address] EST GFR - AA 71 mL/min Normal >60 Comment on above: Order Comment: Order Date: 01/15/24Order Info: 666-07 - BMP Result Comment: Afri can [place] GFR Calc Performed By: #### L 500.2500, L502.0250 #### [id number] [place], [address] GAP 9 Normal 5-15 Comment on above: Order Comment: Order Date: 01/15/24Order Info: 666-07 - BMP Performed By: #### L 500.2500, L502.0250 #### [id number] [place], [address] GFR/1.73 sq M.predicted among non-blacks MDRD (S/P/Bld) [Vol rate/Area] 58 mL/min/{1.73_m2} Low >60 [facility] Comment on above: Order Comment: Order Date: 01/15/24Order Info: 06- - BMP Result Comment: Non- GFR Calc Performed By: #### L 500.2500, L502.0250 #### [id number] [place], [address] Glucose [Mass/Vol] 87 mg/dL Normal 74-106 [facility] Comment on above: Order Comment: Order Date: 01/15/24Order Info: 06 - BMP Performed By: #### L 500.2500, L502.0250 #### [id number] [place], [address] Potassium [Moles/Vol] 4.5 mmol/L Normal 3.5-5.1 [facility] Comment on above: Order Comment: Order Date: 01/15/24Order Info: 0667-1 - BMP Performed By: #### L 500.2500, L502.0250 #### [id number] [place], [address] Sodium [Moles/Vol] 134 mmol/L Low 136-145 [facility] Comment on above: Order Comment: Order Date: 01/15/24Order Info: 666- - BMP Performed By: #### L 500.2500, L502.0250 #### [id number] [place], [address] Urea nitrogen [Mass/Vol] 43 mg/dL High 7-18 Comment on above: Order Comment: Order Date: 01/15/24Order Info: 67 - BMP Performed By: #### L 500.2500, L502.0250 #### [id number] [place], [address] HIP, UNI W/ Pelvis 2-3 Views on 01-15-2024 HIP, UNI W/ Pelvis 2-3 Views [facility] Imaging Services [address] [place] [address] HIP, UNI W/ Pelvis 2-3 Views MR#: [id number] Acct: [id number] Name: KIM MOSQUERA Rep #: [id number] : 1960 F 63 From: Franky johnston MD PCP: Dr. Fer Prado MD Status: REG CLI Study: HIP, UNI W/ Pelvis 2-3 Views Date of Exam: 05/30 Exam# [id number] Ordering Dr: [place] [id number] STUDY: X-RAY - PELVIS AND LEFT HIP REASON FOR EXAM: Female, 63 years old. pain left hip TECHNIQUE: 3 views of the pelvis and hip. COMPARISON: None. FINDINGS: There is a non-specific bowel gas pattern. Normal visualized soft tissue structures. Markedly abnormal left hip where there is irregularity and fracturing of the superolateral left femoral head with collapse, consistent with AVN. There is loss of joint space. There are secondary degenerative changes. Normal bilateral iliac wings, sacroiliac joints and visualized sacrum. Normal bilateral superior and inferior pubic rami. Normal pubic symphysis. Normal bilateral ischial tuberosities. Right hip is unremarkable. RAD/HIP, UNI W/ Pelvis 2-3 Views IMPRESSION: Abnormal left hip suspicious for AVN. MRI recommended. Electronically Signed: Franky Steward MD at 21:58 EDT , CC: Dr. Fer Prado MD Pole Classifier: Signed Normal Microalb:Creat Ratio,Random URon 01-15-2024 Creatinine [Mass/Vol] 47.10 mg/dL Normal NO RAN GE EST. Comment on above: Order Comment: Order Date: 01/15/24Order Info: 0779-1 - MIACRE Performed By: #### L 500.2500, L502.0250 #### [id number] [place], [place], [id number] MALB:CRE TNP Normal <30 mg/g CRE Comment on above: Order Comment: Order Date: 01/15/24Order Info: 0779-1 - MIACRE Performed By: #### L 500.2500, L502.0250 #### [id number] [place], [place], [address] MICROALBUMIN,UR < 5.0 Normal NO RANGE EST. Comment on above: Order Comment: Order Date: 01/15/24Order Info: 0779-1 - MIACRE Performed By: #### L 500.2500, L502.0250 #### [id number] [facility] [place], [address] Basophil percentageOrdered B y: Fer Prado on 06-19-2023 Chloride [Moles/Vol] 102 mmol/L 98-107 [facility] Glucose [Mass/Vol] 80 mg/dL 74-106 [facility] Potassium [Moles/Vol] 4.4 mmol/L 3.5-5.1 [facility] Sodium [Moles/Vol] 135 mmol/L 136-145 [facility] Laboratory - Chemistry and C hemistry - challengeOrdered By: Fer Prado on 06-19-2023 CO2 [Moles/Vol] 28.0 mmol/L 21.0-32.0 Free T4 [Mass/Vol] 1.35 ng/dL 0.76-1.46 [facility] Magnesium [Mass/Vol] 2.6 mg/dL 1.6-2.6 [facility] Urea nitrogen/Creatinine [Mass ratio] 27.2 mg/mg 10-20 No Panel InformationOrdered By: Fer Prado on 06-19-2023 Dehydroepiandrosterone Sulfate 116.0 ug/dL 29.4-220.5 Comment on above: Performed at: - [email or web address] [address] [id number] Director: Doug Doyle PhD, Phone: [phone] Estimated GFR (MDRD) Amer 83 mL/min >60 Comment on above: GFR Calc Estimated GFR (MDRD) Non-Af Amer 68 mL/min >60 Comment on above: Non- GFR Calc Free Triiodothyronine (T3) pg/dL 3.5 pg/mL 2.18-3.98 Thyroid Stimulating Hormone (TSH) 0.99 uIU/mL 0.358-3.74 Serum or plasma calcium gill urement (mass/volume)Ordered By: Fer Prado on 06-19-2023 Calcium [Mass/Vol] 9.5 mg/dL 8.5-10.1 [facility] Serum or plasma cortisol mireille surement (mass/volume)Ordered By: Fer Prado on 06-19-2023 Cortisol [Mass/Vol] 9.70 ug/dL 3.44-22.45 [facility] Comment on above: Adult (AM) 5.27 - 22 .45 ug/dL Adult (PM) 3.44 - 16.76 ug/dLPlease note revised CORTISOL reference range effective 2019. Serum or plasma creatinine m easurement (mass/volume)Ordered By: Fer Prado on 06-19-2023 Creatinine [Mass/Vol] 0.88 mg/dL 0.55-1.02 [facility] Comment on above: The validity of the calculated GFR & GFRAA in patients over 70 years has not been determined. Clinical correlation is essential. Serum or plasma urea nitroge n measurement (mass/volume)Ordered By: Fer Prado on 06-19-2023 Urea nitrogen [Mass/Vol] 24 mg/dL 7-18 Thin prep Papanicolaou smear with manual screeningOrdered By: Fer Prado on 06-19-2023 Thin prep Papanicolaou smear with manual screening 5 5-15 Thin prep Papanicolaou smear with manual screening 298 mOsm/KG 280-301 Basophil percentageOrdered B y: Fer Prado on 03-13-2023 Chloride [Moles/Vol] 102 mmol/L 98-107 [facility] Glucose [Mass/Vol] 91 mg/dL 74-106 [facility] Potassium [Moles/Vol] 3.9 mmol/L 3.5-5.1 [facility] Sodium [Moles/Vol] 134 mmol/L 136-145 [facility] Laboratory - Chemistry and C hemistry - challengeOrdered By: Fer Prado on 03-13-2023 CO2 [Moles/Vol] 26.0 mmol/L 21.0-32.0 Urea nitrogen/Creatinine [Mass ratio] 20.2 mg/mg 10-20 No Panel InformationOrdered By: Fer Prado on 03-13-2023 Estimated GFR (MDRD) Amer 88 mL/min >60 Comment on above: GFR Calc Estimated GFR (MDRD) Non-Af Amer 72 mL/min >60 Comment on above: Non- GFR Calc Serum or plasma calcium gill urement (mass/volume)Ordered By: Fer Prado on 03-13-2023 Calcium [Mass/Vol] 9.0 mg/dL 8.5-10.1 [facility] Serum or plasma creatinine m easurement (mass/volume)Ordered By: Fer Prado on 03-13-2023 Creatinine [Mass/Vol] 0.84 mg/dL 0.55-1.02 [facility] Comment on above: The validity of the calculated GFR & GFRAA in patients over 70 years has not been determined. Clinical correlation is essential. Serum or plasma urea nitroge n measurement (mass/volume)Ordered By: Fer Prado on 03-13-2023 Urea nitrogen [Mass/Vol] 17 mg/dL 7-18 Thin prep Papanicolaou smear with manual screeningOrdered By: Fer Prado on 03-13-2023 Thin prep Papanicolaou smear with manual screening 6 5-15 Basophil percentageOrdered B y: Dr. Prado on 12-13-2022 Chloride [Moles/Vol] 98 mmol/L 98-107 [facility] Cholesterol [Mass/Vol] 205 mg/dL <200 [facility] Comment on above: <200 mg/dL Desirable 200-240 mg/dL Borderline >240 mg/dL High Risk Glucose [Mass/Vol] 84 mg/dL 74-106 [facility] Potassium [Moles/Vol] 4.1 mmol/L 3.5-5.1 [facility] Comment on above: Slight Hemolysis, Re sult may be falsely increased. Sodium [Moles/Vol] 132 mmol/L 136-145 [facility] Triglyceride [Mass/Vol] 64 mg/dL <199 [facility] Comment on above: The drugs N-Acetylcy steine and Metamizole may falsely depress this assay.Serum Triglycerides Reference Interval Normal <150 mg/dL Borderline high 150 - 199 mg/dL High 200 - 499 mg/dL Very High > or = 500 mg/dL WBC (Bld) [#/Vol] 7.3 10*3/uL 4.4-11.0 [facility] Blood erythrocytes count (nu mber/volume)Ordered By: Dr. Prado on 12-13-2022 RBC (Bld) [#/Vol] 4.84 10*6/uL 4.2-5.4 [facility] Blood hemoglobin measurement (mass/volume)Ordered By: Dr. Prado on 12-13-2022 Hemoglobin (Bld) [Mass/Vol] 14.2 g/dL 12.0-15.0 Blood platelet mean volumeOr dered By: Dr. Prado on 12-13-2022 Platelet mean volume (Bld) [Entitic vol] 12.9 fL 6.2-12.0 Determination of erythrocyte mean corpuscular volume (MCV)Ordered By: Dr. Prado on 12-13-2022 MCV (RBC) [Entitic vol] 90.5 fL 81-99 [facility] Hematocrit Auto (Bld) [Volum e fraction]Ordered By: Dr. Prado on 12-13-2022 Hematocrit (Bld) [Volume fraction] 43.8 % 37-47 Laboratory - Chemistry and C hemistry - challengeOrdered By: Dr. Prado on 12-13-2022 CO2 [Moles/Vol] 27.0 mmol/L 21.0-32.0 Free T4 [Mass/Vol] 1.24 ng/dL 0.76-1.46 [facility] Urea nitrogen/Creatinine [Mass ratio] 25.2 mg/mg 10-20 Laboratory - Hematology and Cell countsOrdered By: Dr. Prado on 12-13-2022 Erythrocyte distribution width (RBC) [Entitic vol] 47.1 fL 35.1-43.9 [facility] Erythrocyte distribution width (RBC) [Ratio] 14.2 % 11.6-14.6 MCH (RBC) [Entitic mass] 29.3 pg 27.0-32.0 MCHC Auto (RBC) [Mass/Vol]Or dered By: Dr. Prado on 12-13-2022 MCHC (RBC) [Mass/Vol] 32.4 g/dL 32-36 [facility] No Panel InformationOrdered By: Dr. Prado on 12-13-2022 Estimated GFR (MDRD) Amer 93 mL/min >60 Comment on above: GFR Calc Estimated GFR (MDRD) Non-Af Amer 77 mL/min >60 Comment on above: Non- GFR Calc Free Triiodothyronine (T3) pg/dL 2.8 pg/mL 2.18-3.98 Thyroid Stimulating Hormone (TSH) 1.34 uIU/mL 0.358-3.74 Urine Microalbumin/Creatinine Ratio TNP Comment on above: Test not performed Platelets bldOrdered By: Dr. Prado on 12-13-2022 Platelets (Bld) [#/Vol] 356 10*3/uL 150-450 Serum or plasma calcium gill urement (mass/volume)Ordered By: Dr. Prado on 12-13-2022 Calcium [Mass/Vol] 9.5 mg/dL 8.5-10.1 [facility] Serum or plasma cholesterol in HDL measurement (mass/volume)Ordered By: Dr. Prado on 12-13-2022 Cholesterol in HDL [Mass/Vol] 82 mg/dL >40 Comment on above: The drugs N-Acetylcy steine and Metamizole may falsely depress this assay. Reference Range HDL <40 mg/dL Low HDL Cholesterol HDL >or= 60 mg/dL High HDL Cholesterol Serum or plasma cholesterol in VLDL measurement (mass/volume)Ordered By: Dr. Prado on 12-13-2022 Cholesterol in VLDL [Mass/Vol] 13 mg/dL 5-40 Serum or plasma creatinine m easurement (mass/volume)Ordered By: Dr. Prado on 12-13-2022 Creatinine [Mass/Vol] 0.80 mg/dL 0.55-1.02 [facility] Comment on above: The validity of the calculated GFR & GFRAA in patients over 70 years has not been determined. Clinical correlation is essential. Serum or plasma low density lipoprotein (LDL) cholesterol measurement (mass/volume)Ordered By: Dr. Prado on 12-13-2022 Cholesterol in LDL [Mass/Vol] 110 mg/dL 0-130 Serum or plasma urea nitroge n measurement (mass/volume)Ordered By: Dr. Prado on 12-13-2022 Urea nitrogen [Mass/Vol] 20 mg/dL 7-18 Thin prep Papanicolaou smear with manual screeningOrdered By: Dr. Prado on 12-13-2022 Thin prep Papanicolaou smear with manual screening 7 5-15 Thin prep Papanicolaou smear with manual screening < 5.0 mg/L NO RANGE EST. Urine creatinine measurement (mass/volume)Ordered By: Dr. Prado on 12-13-2022 Creatinine (U) [Mass/Vol] 23.60 mg/dL NO RANGE EST. Whole blood hemoglobin A1c/t otal hemoglobin ratio (mass fraction)Ordered By: Dr. Prado on 12-13-2022 HbA1c (Bld) [Mass fraction] 5.5 % 3.8-5.6 Comment on above: Normal < 5.7 % Predi abetic 5.7 - 6.4 % Diabetic >or= 6.5 % Please note range changes. Cervical or vagninal specime n microscopic examination by cytology stain (reported asOrdered By: Ruchi Holman on 11-11-2022 Cytology report Cyto stain Doc (Cvx/Vag) Comment . Comment on above: The Pap smear is a s creening test designed to aid in thedetection of premalignant and malignant conditions of theuterine cervix. It is not a diagnostic procedure andshould not be used as the sole means of detecting cervicalcancer. Both false-positive and false-negative reports dooccur. Detection in cervical specim en of any of human papilloma virus (HPV) 16, 18, 31, 33,Ordered By: Ruchi Holman on 11-11-2022 HPV 16+18+31+33+35+39+45+51+5 2+56+58+59+66+68 DNA Probe+sig amp Ql (Cvx) Negative Negative Comment on above: This nucleic acid am plification test detects fourteen high-risk HPV types (16,18,31,33,35,39,45,51,52,56,58,59,66,68)without differentiation. Laboratory - CytologyOrdered By: Ruchi Holman on 11-11-2022 Research Librarian Cyto stain Nom (Cvx/Vag) [ID] Comment . Comment on above: Jennifer Josue, Cytot echnologist (ASCP) Laboratory - Miscellaneous t estsOrdered By: Ruchi Holman on 11-11-2022 Service comment (Unsp spec) [Interp] Comment . Comment on above: This liquid based Th inPrep(R) pap test was screened withthe use of an image guided system. Service comment (Unsp spec) [Interp] . . Liquid-based cerv Pap + CT/G C by NATASHA w reflex to high-risk HPV for ASCUSOrdered By: Ruchi Holman on 11-11-2022 Cytology report Cyto stain.thin prep Doc (Cvx/Vag) Comment . Comment on above: Criteria not met, HP V Genotype not performed.Performed at: - [facility] [id number] Director: Arlene Flores MD, Phone: [id number] at: = - [address] [id number] Director: Arlene Flores MD, Phone: [phone] No Panel InformationOrdered By: Ruchi Holman on 11-11-2022 Pathology report final diagnosis Narrative Comment . Comment on above: NEGATIVE FOR INTRAEP ITHELIAL LESION OR MALIGNANCY. Basophil percentageon 2021 Basophil percentage 0-5 SEEN /hpf [facility] Work Phone: Chloride [Moles/Vol] 104 mmol/L 98-107 [facility] Work Phone: Cholesterol [Mass/Vol] 222 mg/dL <200 [facility] Work Phone: Comment on above: <200 mg/dL Desirable 200-240 mg/dL Borderline >240 mg/dL High Risk Glucose [Mass/Vol] 83 mg/dL 74-106 [facility] Work Phone: [phone] Potassium [Moles/Vol] 4.0 mmol/L 3.5-5.1 [facility] Work Phone: [phone] Sodium [Moles/Vol] 137 mmol/L 136-145 [facility] Work Phone: [phone] Triglyceride [Mass/Vol] 90 mg/dL [facility] Work Phone: [phone] Comment on above: The drugs N-Acetylcy steine and Metamizole may falsely depress this assay.Serum Triglycerides Reference Interval Normal <150 mg/dL Borderline high 150 - 199 mg/dL High 200 - 499 mg/dL Very High > or = 500 mg/dL Bilirubin Test strip Ql (U)o n 12-06-2021 Bilirubin Ql (U) Negative Negative Work Phone: [phone] Ketones Test strip Ql (U)on 12-06-2021 Ketones Ql (U) Negative Negative Work Phone: [phone] Laboratory - Chemistry and C hemistry - challengeon 12-06-2021 CO2 [Moles/Vol] 27.0 mmol/L 21.0-32.0 Work Phone: Free T4 [Mass/Vol] 1.15 ng/dL 0.76-1.46 [facility] Work Phone: [phone] Urea nitrogen/Creatinine [Mass ratio] 24.6 mg/mg 10-20 Work Phone: Mucus LM Ql (Urine sed)on Mucus Ql (Urine sed) 0 SEEN /hpf [facility] Work Phone: Nitrite Test strip Ql (U)on 12-06-2021 Nitrite Ql (U) Negative Negative Work Phone: No Panel Informationon 12-06 Estimated GFR (MDRD) Amer 82 mL/min >60 Work Phone: Comment on above: GFR Calc Estimated GFR (MDRD) Non-Af Amer 68 mL/min >60 Work Phone: Comment on above: Non- GFR Calc Thyroid Stimulating Hormone (TSH) 1.15 uIU/mL 0.358-3.74 Work Phone: Protein Test strip Ql (U)on 12-06-2021 Protein Ql (U) Negative Negative Work Phone: Serum or plasma calcium gill urement (mass/volume)on 12-06-2021 Calcium [Mass/Vol] 9.2 mg/dL 8.5-10.1 [facility] Work Phone: Serum or plasma cholesterol in HDL measurement (mass/volume)on 12-06-2021 Cholesterol in HDL [Mass/Vol] 84 mg/dL Work Phone: Comment on above: The drugs N-Acetylcy steine and Metamizole may falsely depress this assay. Reference Range HDL <40 mg/dL Low HDL Cholesterol HDL >or= 60 mg/dL High HDL Cholesterol Serum or plasma cholesterol in VLDL measurement (mass/volume)on 12-06-2021 Cholesterol in VLDL [Mass/Vol] 18 mg/dL 5-40 Work Phone: Serum or plasma creatinine m easurement (mass/volume)on 12-06-2021 Creatinine [Mass/Vol] 0.90 mg/dL 0.55-1.02 [facility] Work Phone: Comment on above: The validity of the calculated GFR & GFRAA in patients over 70 years has not been determined. Clinical correlation is essential. Serum or plasma low density lipoprotein (LDL) cholesterol measurement (mass/volume)on 12-06-2021 Cholesterol in LDL [Mass/Vol] 120 mg/dL 0-130 Work Phone: Serum or plasma urea nitroge n measurement (mass/volume)on 12-06-2021 Urea nitrogen [Mass/Vol] 22 mg/dL 7-18 Work Phone: [phone] Squamous epithelial cells de tection in urine sediment by light microscopyon 12-06-2021 Epithelial cells.squamous LM Ql (Urine sed) 0 SEEN /hpf Work Phone: Thin prep Papanicolaou smear with manual screeningon 12-06-2021 Thin prep Papanicolaou smear with manual screening 6 5-15 Work Phone: Urine blood detectionon 06-0 RBC Ql (U) Negative Negative Work Phone: RBC Ql (U) 0 SEEN /hpf Work Phone: Urine clarityon 12-06-2021 Clarity (U) Clear Clear Work Phone: Urine color determinationon 12-06-2021 Color (U) Yellow Yellow Work Phone: Urine glucose detectionon Glucose Ql (U) Normal mg/dl Normal Work Phone: Urine leukocyte esterase det ection by dipstickon 12-06-2021 Leukocyte esterase Test strip Ql (U) 500 /ul Negative Work Phone: Urine pHon 12-06-2021 pH (U) 7.0 [pH] Work Phone: Urine sediment bacteria coun t by microscopy (number/high power field)on 12-06-2021 Bacteria LM.HPF (Urine sed) [#/Area] 0 /[HPF] None Seen Work Phone: Urine specific gravity measu rementon 12-06-2021 Specific gravity (U) [Rel density] 1.005 Work Phone: Urobilinogen Auto test strip Ql (U)on 12-06-2021 Urobilinogen Ql (U) Normal mg/dl Normal [facility] Work Phone: Clinical Summary: HMSPatient IDon 03-24-2018 POP Invalid Interpretation Code [facility] Work Phone: Clinical Summary: Scanned RO S Summaryon 03-24-2018 endocrine ROS Denies Invalid Interpretation Code [facility] Work Phone: genitourinary review of systems, E&M Denies Invalid Interpretation Code [facility] Work Phone: Lymphocytes Auto #/vol (Bld) Denies Invalid Interpretation Code [facility] Work Phone: ROS cardiovascular E&M Denies Invalid Interpretation Code [facility] Work Phone: ROS ENT E&M Denies Invalid Interpretation Code [facility] Work Phone: ROS gastrointestinal E&M Denies Invalid Interpretation Code [facility] Work Phone: ROS general E&M Denies Invalid Interpretation Code [facility] Work Phone: ROS Musculoskeletal comments Joint Swelling,Stiffness,Arth ritis Invalid Interpretation Code [facility] Work Phone: ROS musculoskeletal E&M Complains Invalid Interpretation Code [facility] Work Phone: ROS neurological E&M Denies Invalid Interpretation Code [facility] Work Phone: ROS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 Labor Lgth Anesthesia Del Locatn Provider FRANCISCO Unknown 1983 aTlia Unknown 1985 Alvaro Unknown 1987 Danielle [facility] Encounter for routine gynecological examination Details: KIM MOSQUERA is a 64 year old who presents for annual exam. She reports her Last PAP: 2022 History of abnormal PAP: Yes, 25-30yrs ago Last mammogram: 2023, scheduled for today History of abnormal mammogram: Yes- years ago, benign Colon cancer screenin- Normal Other preventative health care screenings: PCP ROS Const Constitutional: Denies chills, fatigue, fever(s), headache(s) or weight loss Eyes Eyes: Denies change in vision ENT ENT: Denies dizziness Resp Resp: Denies cough GI GI: Denies abdominal pain, constipation or nausea : Denies difficulty voiding, dysuria, hematuria, nipple discharge, pelvic pain, prolapse symptoms, urinary incontinence, vaginal discharge, vaginal dryness, vaginal odor or vaginal pruritus Skin Skin/Breast: Denies alopecia, rash, breast mass, breast pain, breast skin changes or nipple discharge Neuro Neuro: Denies dizziness Psych Psych: Denies anxiety or depression Endo Endo: Denies cold intolerance, excessive sweating or heat intolerance Exam Const General: cooperative, healthy appearing, comfortable, no acute distress, well groomed and well hydrated Nutritional Appearance: well nourished Orientation: alert, awake and oriented x3 HENMT Head: normal to inspection and normocephalic Ears: hearing grossly normal bilaterally and external ears normal Nose: external nose normal Face and sinus: normal facial exam Eyes General: appearance normal, both eyes and all related structures Neck Neck: normal visual inspection, full ROM and no lymphadenopathy Thyroid: thyroid normal Chest Chest palpation & inspection: normal inspection of the chest Breast inspection: normal inspection of the breasts and normal inspection of theaxillae Breast palpation: normal palpation of the breasts, normal palpation of the axillae and no axillary lymphadenopathy Resp Effort & Inspection: normal respiratory effort, able to speak in complete sentences and symmetric chest movement GI Inspection: normal to inspection Palpation: soft and no hepatosplenomegaly General: bladder normal to palpation External Female Exam: normal external appearance and normal appearance of the urethra Urethra: normal appearance of the urethra Speculum Exam - Vagina: normal appearance of the vagina, normal vaginal discharge, no lesions and nontender Speculum Exam - Cervix: normal appearance of the cervix, no lesions and no masses Bimanual Exam- Vagina & Uterus: normal bimanual exam, uterine size normal, bladder normal to palpation, normal palpation and non-tender Bimanual Exam- Adnexa, other: normal adnexae, no masses, normal and non-tender Pelvic Support: normal Skin General: no rashes or lesions noted Neuro General: patient alert, patient awake, patient oriented x3 and moves all extremities Psych Appearance: grossly normal Mental Status: mental status grossly normal Affect: normal affect Speech and Movement: speech and movement normal Attitude: cooperative Coding Level of Care Code Established Pt Off vis,est,prev 65+yrs Patient Type Established Diagnoses Encounter for routine gynecological examination Z01.419 Assessment and Plan Assessment and Plan (1) Encounter for routine gynecological examination: Plan: Breast and pelvic exam complete. PAP due: UTD Mammogram due: orders placed to obtain--scheduled today Advised self breast exams monthly. Contraception: post menopausal. Advised incorporating healthy dietary choices such as increase in lean meats, fruits/vegetables, less processed food/sat fat/trans fats. Increase exercise to 30 minutes per day/5 days a week. This can include both weight bearing exercisesand/or brisk walking. Follow up with PCP for further preventative health screenings. 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 Call office sooner with questions or concerns. 12/29/24 0948 n GENERALIST-C> Date _ Allyn Pitts GENERALIST-C Cosigner Signature: Date (if applicable) CC: ~ [facility]04-30-2025 Discharge summary Author Michael Castano Note Date/Time November 03, 2024 7:0 0pm Physical Therapy [facility] [address] [place] [address] / REHABILITATION SERVICES DISCHARGE SUMMARY MR#: [id number] Acct: [id number] Name: KIM MOSQUERA Rep #: [id number] : 1960 64 From: Michael Juan Referring Dr.: SHABBIR Isabel Status: REG RCR Insurance: MEDICARE PART A B [facility] Discharge Summary D/C summary: It has been my pleasure to treat KIM MOSQUERA referred by Calvin Isabel PA-C, with the diagnosis of R TKA, DOS: 09/07/24 for a total of 18 visit(s). Discharge Date: 11/03/24 Please see the following information for a summary of their discharge status. Subjective Subjective: Pt. reports being 95% better overall. Pt. reports being I with all exercises. She have more issues with her L hip compared to her R knee. Pt. reports overall being pleased with her R knee. No issues with walking or activities. Pt. reports being compliant with both land and aquatic exercises x6 days per week. Pain R knee: Pain Intensity (Out of 10): 0 Overall Improvement % Improvement: 95 Objective Objective/Function: ROM: R knee 0-0-122deg. MMT: RLE: knee: ext 23.8#, flexion 21.9# LLE: knee ext: 21.9#, flexion 20.9# GAIT: pt. has fairly normal gait pattern. Great R knee ROM, but has slight antalgic motion during L stance phase. STAIRS: fairly normal pattern, but does have some L hip weakness during stance phase. Pt. is overall doing great. she is having some L hip soreness/weakness. She did have a L ODILIA last year, in the late fall. I recommend that she continue to strengthen and progress as tolerated. If not improving she can follow up with physician. Goals Goal 1:: LTG: pt. to be I with HEP. Goal Progress: Goal Met Goal 2:: STG: Pt. to have increased ROM to 0-0-120deg. allowing for increased tolerance to all functional mobility. Goal Progress: Goal Met Goal 3:: LTG: Pt. to have increased RLE strength to symmetrical to L side. Goal Progress: Goal Met Goal 4:: LTG: Pt. to complete TUG with time less than 10sec. Goal Progress: Goal Met Goal 5:: LTG: Pt. to complete 30sec sit to stand rep test with score of at least15. Goal Progress: Goal Met Goal 6:: LTG: Pt. to ambulate unlimited distances with out AD without increase in R knee pain Goal Progress: Goal Met Plan Plan: Pt. to be DC from PT at this point in time. Pt. is D/C Information Discharge Comments: Pt. has met all goals and will be DC from PT at this point in time. d/c sentence: If there are questions or concerns regarding this patient's physical therapy, please feel free to call me at [phone]. Thank you for the referral of thispatient. Sincerely, Michael Castano, JEANET Balance/Gait/Functional tests Balance/Special Test Scores Lower Extremity Functional Score: 67 TUG Test Time Seconds: 8.2 Tug Test: <10 sec.=free mobile 30 Second Chair Rise Test Seconds: 16 6 Minute Walk Test: 1391 feet no Ad WOMAC Total Score: 90 WOMAC Percentage: 6.2500 Improvement % Improvement: 95 <Electronically signed by Michael Castano DPT> 11/03/24 1304 CC: SHABBIR Isabel; Dr. Fer Prado MD ~ CLS Signed Work Phone: 1(143) 972-316904-30-2025 Discharge summary Physical Therapy [facility] [address] [place] [address] [address] [place] [address] / REHABILITATION SERVICES DISCHARGE SUMMARY MR#: [id number] Acct: [id number] Name: KIM MOSUQERA Rep #: [id number] : 1960 64 From: Michael Juan Referring Dr.: SHABBIR Isabel Status: REG RCR Insurance: MEDICARE PART A B [facility] Discharge Summary D/C summary: It has been my pleasure to treat KIM MOSQUERA referred by Calvin Isabel PA-C, with the diagnosis of R TKA, DOS: 09/07/24 for a total of 18 visit(s). Discharge Date: 11/03/24 Please see the following information for a summary of their discharge status. Subjective Subjective: Pt. reports being 95% better overall. Pt. reports being I with all exercises. She have more issues with her L hip compared to her R knee. Pt. reports overall being pleased with her R knee. No issues with walking or activities. Pt. reports being compliant with both land and aquatic exercises x6 days per week. Pain R knee: Pain Intensity (Out of 10): 0 Overall Improvement % Improvement: 95 Objective Objective/Function: ROM: R knee 0-0-122deg. MMT: RLE: knee: ext 23.8#, flexion 21.9# LLE: knee ext: 21.9#, flexion 20.9# GAIT: pt. has fairly normal gait pattern. Great R knee ROM, but has slight antalgic motion during Lstance phase. STAIRS: fairly normal pattern, but does have some L hip weakness during stance phase. Pt. is overall doing great. she is having some L hip soreness/weakness. She did have a L ODILIA last year, in the late fall. I recommend that she continue to strengthen and progress as tolerated. If notimproving she can follow up with physician. Goals Goal 1:: LTG: pt. to be I with HEP. Goal Progress: Goal Met Goal 2:: STG: Pt. to have increased ROM to 0-0-120deg. allowing for increased tolerance to all functional mobility. Goal Progress: Goal Met Goal 3:: LTG: Pt. to have increased RLE strength to symmetrical to L side. Goal Progress: Goal Met Goal 4:: LTG: Pt. to complete TUG with time less than 10sec. Goal Progress: Goal Met Goal 5:: LTG: Pt. to complete 30sec sit to stand rep test with score of at least15. Goal Progress: Goal Met Goal 6:: LTG: Pt. to ambulate unlimited distances with out AD without increase in R knee pain Goal Progress: Goal Met Plan Plan: Pt. to be DC from PT at this point in time. Pt. is D/C Information Discharge Comments: Pt. has met all goals and will be DC from PT at this point in time. d/c sentence: If there are questions or concerns regarding this patient's physical therapy, please feel free to call me at [phone]. Thank you for the referral of thispatient. Sincerely, Michael Castano, DPT Balance/Gait/Functional tests Balance/Special Test Scores Lower Extremity Functional Score: 67 TUG Test Time Seconds: 8.2 Tug Test: <10 sec.=free mobile 30 Second Chair Rise Test Seconds: 16 6 Minute Walk Test: 1391 feet no Ad WOMAC Total Score: 90 WOMAC Percentage: 6.2500 Improvement % Improvement: 95 11/03/24 1304 CC: SHABBIR Isabel; Dr. Fer Prado MD ~ CLS Signed 03-05-2025 Note Discharge Instructions Thank you for allowing [facility] to assist you with your healthcare needs. The following is importantdischarge information regarding your hospital visit. Your Care Team Dr. Kwaku Arteaga and [facility] Your Diagnosis Hypertension Kidney function abnormal Leukocytosis (leucocytosis) Mild renal insufficiency Osteoporosis Status post total right knee replacement What to do next Follow Up Appointments Follow Up with [facility] [place] When:09/10/2024 02:00 PM EST Where:[address] [place] [address]- Additional Information: This is your first physical therapy appointment. Follow- up as scheduled. Follow Up with FER PRADO MD When:09/14/2024 03:20 PM EDT Where:[facility] [address] [place] [address]- Additional Information: This is your PCP appointment. Follow-up as scheduled. Follow Up with SAM ISABEL PA-C, Orthopedic When:09/20/2024 11:00 AM EDT Where:[facility] [address] [place] [address]- Additional Information: This is your post-op appointment. Follow-up as scheduled. The Following Equipment Has Been Ordered for You No qualifying data available. The Following Treatments Have Been Ordered for You Discharge Labs Discharge Outpatient Labwork - Ordered -- CBC and BMP, post-op leukocytosis and elevated kidney function, follow-up within: 1 week, Results Notify to: FER PRADO MD, 09/08/24 9:09:00 EST Discharge Radiology No qualifying data available. Other Therapies No qualifying data available. Post Acute Orders No qualifying data available. Someone Will Contact You Regarding These Home Health Referrals No home referrals have been ordered for you. No one will call you. Allergies Vicodin Nausea hydroxychloroquine Rash sulfa drug Nausea Medications Please ask your primary doctor or pharmacist before taking any other medication not listed, including over the counter drugs, herbal medications, vitamins and or supplements as they may interact withyour home medications. What How Much When Why Instructions Last Dose New acetaminophen (Tylenol) 1,000 Milligram by mouth Three (3) times a day not to exceed 3000 mg/ day 09/08/24 2:00PM New aspirin 81 Milligram by mouth Twice daily with meals Duration: 30 Days Take 81 mg aspirin twice daily with food for 4 weeks postoperatively for DVT prophylaxis. 09/08/24 0759AM New docusate-senna (Senokot S 50 mg-8.6 mg oral tablet) 2 tab(s) by mouth Two (2) times a day Duration: 3 Days Take until first bowel movement, then as needed Pickup at [id number] 09/08/24 0759AM New famotidine (Pepcid 20 mg oral tablet) 1 tab(s) by mouth Once a day Pickup at [id number] 09/08/24 0759AM New oxyCODONE (oxyCODONE 5 mg oral tablet ( IMMEDIATE release )) See instructions Status post total right knee replacement 1-2 tab(s) Oral q4h, As needed for as needed for pain Pickup at [id number] 09/08/24 1215PM Unchanged beclomethasone nasal (Qnasl 80 mcg/ inh nasal spray) 2 spray(s) Intranasal Once a day in each nostril NA Unchanged herbal/ nutritional product (Probiotic) NA Unchanged levothyroxine (levothyroxine 25 mcg (0.025 mg) oral tablet) 1 tab(s) by mouth Once a day before a meal NA Unchanged magnesium citrate (magnesium (as citrate) 85 mg oral tablet, chewable) 1 tab(s) by mouth Once a day NA Unchanged Misc Medication (Semaglutide 5mg/ ml Inj 4ml vial (20mg)) Inject 0.4ml subcutaneously once weekly NA Unchanged pravastatin (pravastatin 20 mg oral tablet) 1 tab(s) by mouth Daily at bedtime 09/07/24 0815PM Unchanged spironolactone (spironolactone 50 mg oral tablet) 1 tab(s) by mouth Once a day Take with food 09/08/24 0759AM Unchanged thyroid desiccated ([facility] Thyroid 15 mg oral tablet) 1 tab(s) by mouth Once a day before a meal 09/08/24 0552AM Pharmacy Information [id number]: [address] [place], [place] [id number] [phone] What How Much When Comments Stop Taking meloxicam (meloxicam 7.5 mg oral tablet) 1 tab(s) by mouth Once a day Take with food/ milk Please take this list to your next doctor s visit. Bring all medications you take, including over the counter medications, herbals and other supplements with you to your doctor s visit. Patients and families are reminded to discard old lists and to update any records with all medication providers or retail pharmacies. Education Materials [facility] Post-operative Instructions PLEASE FOLLOW [facility] POST-OP INSTRUCTIONS GIVEN WATCH FOR SIGNS OF INFECTION: call the office ([phone]) if experencing any of the following: (Usually appears 36-48 hours after surgery) Increased temperature (101 degrees Fahrenheit or higher) Redness or swelling Increased uncontrolled pain Foul odor or drainage Calf discomfort Significant swelling Or if having any chest pain, shortness of breath, or difficulty breathing or swallowing call the office or go the nearest Emergency Room. If you have any questions, please call your doctor at the number listed on your follow up instructions. Form: 338A ([id number]) R: 11/10 Additional Information VACCINATE! IT SAVES LIVES! Members of the community who have not yet received the COVID-19 vaccine and would like to receive it can visit one of [facility] vaccine clinics. There are many vaccine clinic locations within the [facility]. For locations and available times, please visit [email or web address].[place].gov/. It is important to note that some COVID mobile vaccine clinics are held outdoors and may be canceled in rainy or stormy conditions. To learn more about pediatric vaccinations (ages 5-11), we invite you to visit the [facility] webpage. [email or web address]/[email or web address] [email or web address] learn more about the COVID-19 vaccine, we invite you to visit the CDC website for a list of frequently asked questions.https://www.cdc.gov/coronavirus/2019-ncov/vaccines/faq.html [facility] [employer] Patient Portal Access Instructions: Stay connected with your healthcare team and access your personal medical information anytime with the [facility] Patient Portal. Please follow the directions below to create your [facility] account: 1.Access the email account you provided upon registration to the hospital/physician office.2.Look for an invitation email from [facility].3.Open the email and access the invitation link: AcceptInvitation to [employer].4.Fill in the required lovelace to create your account. To access your account, visit [email or web address]. Click the blue button labeled Access Patient Portal and then log in with the username and password that you created in the steps above. You will be able to view your test results, lab results, a summary of your visits, upcoming appointments and more. There is also a convenient messaging option where you can send secure messages to your p [email or web address]. In addition, you will have the ability to download any documents or summaries to your computer and/or send the information securely to a physician. Remember that your healthcare information is confidential, so carefully consider who you will allowto register on the [facility] Patient Portal for access to your information. You can also access the [facility] Patient Portal on the [employer] jena. Simply click on Patient Portal and then log into your account. If you would like to receive a full copy of your medical records, please contact the [facility] Medical Records Department by calling [phone], Friday through Friday between 8 a.m. and 4:30 p.m. HOW TO SAFELY DISPOSE OF PRESCRIPTION MEDICATIONS Please use one of the following methods to safely dispose of your unused medications. 1.Use a drug disposal kit: the drug disposal pouch allows you to safely discard your old and unuseddrugs. Ask your nurse to give you one when you are discharged.2.Visit a local take-back location: Many local pharmacies and police departments have programs that collect old and unwanted prescriptiondrugs. Call your local pharmacy or go to http://Good Works Now/4F0Xf7y to find one close to you.3.Make use of household items: Use cat litter or old coffee grounds to dispose medications if other options arenot available. Mix your drugs with these household products, seal them in an airtight container andthrow it into the garbage. Call [facility]: [phone] to be sure your drugs can be disposed of in this way. Some medicines may require a different approach.4.Never flush your medications down the toilet. IF YOU HAVE BEEN PRESCRIBED AN OPIOID FOR PAIN If you have been prescribed an opioid (such as hydrocodone, oxycodone or morphine), it is critical to understand the possible side effects and risks of opioid pain medications. Even when taken as directed, opioids can have several side effects including: Tolerance, meaning you might need to take more of a medication for the same pain relief. Nausea, vomiting and/or constipation. Sleepiness, dizziness, dry mouth, confusion, depression or itching. Physical dependence, meaning you have withdrawal symptoms when a medication is stopped, can develop within a few days. KNOW YOUR RESPONSIBILITIES It is important to know exactly how much and how often to take the opioid pain medications you are prescribed. Never take opioids in higher amounts or more often than prescribed. Do not combine opioids with alcohol or other drugs that cause drowsiness, such as benzodiazepines, also known as benzos, including diazepam and alprazolam, muscle relaxants or sleep aids. Never sell or share prescription opioids. This is illegal. Store opioids in a secure place and out of reach of others (including children, family, friends and visitors). The last page of this document has been signed and retained as a CHART COPY. Signatures Patient Education Materials 5 - [facility] Post-op Instruction 02/2017 (00787) Medication Leaflets My discharge plan and instructions have been reviewed and explained to me and I,DIONNECOLBY KIMMALCOM Thomasd my current condition and have read and understand these discharge instructions. I have received a written copy of the plan/instructions. If I have questions, I am aware that I should contact my doctor. Patient/Social Media Content Manager Signature: Date/Time: Relationship to Patient: Witness Name/Signature: Date/Time: [facility]03-05-2025 Note Date of Service September 08, 2024 Subjective The patient was sitting in bed upon examination. Patient denies any chest pain, shortness of breath, dizziness, lightheadedness, nausea or vomiting, or calf pain. No adverse overnight events. Pain has been controlled on medications. Patient overall appears to be doing well. She does have history ofnausea and was given scopolamine patch by anesthesia. She does have some dry mouth but denies any dizziness or lightheadedness. No nausea at this time. Objective Vitals and Measurements T: 36.6 C (Oral) TMIN: 36.1 C (Axillary) TMAX: 36.8 C (Oral) HR: 52 (Monitored) RR: 16 BP: 123/58 SpO2: 96% HT: 152.4 cm WT: 73.5 kg BMI: 31.65 Intake and Output 7AM Yesterday to 7AM Today Last 24 hours Intake Medication 1443.50 Administration Information 1052.88 Oral Intake 240.00 Supplement Intake 180.00 Output Urine Voided 200.00 Urine Count 4.00 Total Summary Total Intake 2916.38 Total Output 200.00 Fluid Balance 2716.38 Physical Exam Vital signs stable, afebrile SCD's and JUDY Hose in place bilaterally Patient is able to plantarflex and dorsiflex actively Sensation is intact to saphenous, sural, superficial and deep peroneal, and tibial distribution Dressings are clean dry and intact Negative signs and symptoms of DVT, negative Homans bilaterally Weight Dosing Weight: 73.5 kg (09/07/24) Dosing Weight: 73.5 kg (09/07/24) Medications Medications (20) Active Scheduled: (11) acetaminophen 500 mg Tablet 1,000 mg 2 tab(s), Oral, q6h [place] Thyroid 15mg 15 mg, Oral, qDayAC aspirin 81 mg EC 81 mg 1 tab(s), Oral, BIDM atorvastatin 10 mg tablet 10 mg 1 tab(s), Oral, qDay docusate sodium 100 mg Capsule 100 mg 1 cap(s), Oral, BID docusate-senna (Senokot S) 50 mg-8.6 mg Tablet 2 tab(s), Oral, BID famotidine 20 mg tablet 20 mg 1 tab(s), Oral, qDay levothyroxine 50 mcg tablet 25 mcg 0.5 tab(s), Oral, qDayAC magnesium hydroxide 8% Suspension 30 mL UD 30 mL, Oral, Daily multivitamin (Myadec) with minerals Therapeutic Multiple Vitamins with Minerals Tablet 1 tab(s), Oral, qDayM Normal Saline Injection 1000 mL * Bolus * 1,000 mL, IV Bolus, Once Continuous: (0) PRN: (9) acetaminophen 325 mg Tablet 650 mg 2 tab(s), Oral, q4h diphenhydramine 25 mg tablet 25 mg 1 tab(s), Oral, q6h diphenhyDRAMINE 50 mg/mL (1 mL) INJ 25 mg 0.5 mL, IV Push, q6h morphine 2 mg/mL 1 mL syringe 2 mg 1 mL, IV Push, q1h ondansetron 2 mg/ 1 mL 2 mL INJ 4 mg 2 mL, IV Push, q8h oxycodone 5 mg tablet (immediate release) 10 mg 2 tab(s), Oral, q4h oxycodone 5 mg tablet (immediate release) 5 mg 1 tab(s), Oral, q4h prochlorperazine 10 mg/2 mL vial 5 mg 1 mL, IV Push, q6h sodium biphosphate-sodium phosphate 19 gm-7 gm Enema 133 mL, Rectal, qDay Lab Results 09/08 05:20 WBC: 18.4 H Hgb: 11.7 L Hct: 35.0 Platelet: 266 Neutrophil %: 85.1 H Glucose Level: 113 Sodium Level: 137 Potassium Level: 5.0 BUN: 32 H Creatinine Lvl (s): 1.15 H EKG No qualifying data available. Assessment/Plan 1. Status post robotic assisted right total knee arthroplasty postop day #1 2. Continue pain medications: Tylenol and oxycodone. Meloxicam has been discontinued at this point due to her elevated kidney function and decreased GFR. [facility]. I would defer to primary care provider if she is able to resume her meloxicam based on labs. 3. DVT prophylaxis: Take 81 mg aspirin twice daily with food for 4 weeks postoperatively for DVT prophylaxis. Patient denies past history of DVT or pulmonary embolism. 4. Physical therapy: Weightbearing as tolerated with walker 5. H & H: 11.7/35.0, asymptomatic. Postoperative drop in hemoglobin from surgery without intraoperative complications. At this time there is no need for treatment. 6. Reactive Leukocytosis: currently 18.4, afebrile. Patient did receive decadron intra-operatively.No clinical signs of infection. 7. Encouraged incentive spirometry 8. Continue postoperative medical management per medicine: Case has been discussed with medicine about the kidney function. Appreciate recommendations. Plan will be for patient to follow-up in 1 weekwith primary care provider with repeat labs. We are avoiding nonsteroidal anti-inflammatories at this time. Patient is aware. Defer to primary care provider for resuming any anti- inflammatories afterrepeat labs. 9. Postoperative constipation: Discussed with the patient to continue stool softener until first bowel movement. After first bowel movement patient can then take as needed. They were also instructed that if they are not able to have a bowel movement within 3 days they are to contact our office for change of medication. Patient voiced understanding. 10. Disposition: Plan will be for probable discharge home this afternoon. Patient is doing well from orthopedic standpoint. As long as patient is cleared from medicine plan will be for discharge home. Patient has outpatient physical therapy established. She will follow-up per postoperative instructions. She would like her medications E scribed to [facility] in [facility]. Discussed with the patient removing the scopolamine patch at home. She should not touch the scopolamine patch with her bare hand. I would recommend using a glove and remove on morning. She should wash her hands thoroughly after removal. She voiced understanding. I will be in contact with medicine with regards to dis charge home this afternoon. Lab order will be placed on chart for patient to follow-up in 1 week with the primary care provider. Care management team currently involved for assisting on those appointments. I have reviewed the [place] Automated Rx Reporting System (OARRS) report for this patient for refill pattern and other prescriber involvement as part of the appropriate surveillance for the provision ofacute and chronic controlled medications. The report was requested and reviewed on the date of thisentry, and was considered in the prescribing process This dictation was created using voice recognition software. Phonetic and/or grammatical errors mayexist. Digitally Signed by SAM ISABEL PA-C on 09/08/2024 09:06 AM [facility]03-05-2025 Hospital Discharge instructions Patient Education 09/08/2024 09:06:29 5 - [facility] Post-op Instruction 02/2017 (20767) [facility] Post-operative Instructions PLEASE FOLLOW [facility] POST-OP INSTRUCTIONS GIVEN WATCH FOR SIGNS OF INFECTION: call the office ([phone]) if experencing any of the following: (Usually appears 36-48 hours after surgery) Increased temperature (101 degrees Fahrenheit or higher) Redness or swelling Increased uncontrolled pain Foul odor or drainage Calf discomfort Significant swelling Or if having any chest pain, shortness of breath, or difficulty breathing or swallowing call the office or go the nearest Emergency Room. If you have any questions, please call your doctor at the number listed on your follow up instructions. Form: 338A (13109) R: 11/10 Follow Up Care 07/28/2024 12:38:12 With:[facility] [employer] Address: [address] [place] [address]- When:09/10/2024 14:00:00 Comments:This is your first physical therapy appointment. Follow-up as scheduled. With:FER PRADO MD Address: [facility] [address] [place] [address]- When:09/14/2024 15:20:00 Comments:This is your PCP appointment. Follow-up as scheduled. With:SAM ISABEL PA-C, Orthopedic Address: [facility] [address] [place], [place] [address] [address]- When:09/20/2024 11:00:00 Comments:This is your post-op appointment. Follow-up as scheduled. [facility] 03-05-2025 Pastoral care Progress note Pastoral Care Note Entered On: 09/08/2024 10:07 EST Performed On: 09/08/2024 10:05 EST by Sam Lua Pastoral Care Type of Pastoral Visit : Initial visit Spiritual Care Visit Initiated by : Consult/Referral Spiritual Care Reason for Visit : General Pastoral Care Referral From : Patient Spiritual Assessment : Faithful, Hopeful, Positive Image of God, Good [employer] Group Support Spiritual Care Emotional Assessment : Accepting of Situation, Thoughtful/Reflective, Anxious/Worried Spiritual Care Intervention : Active listening, Words of Encouragement, Facilitate Life Review, Prayer with Patient/Family Spiritual Outcomes : Expresses Confidence, Expresses Gratitude Spiritual Plan of Care : No Further Action Pastoral Care Comments : patient gives some recent health history of herself and her spouse; pt is hopeful but admits to needing some assurances about her current surgery and its outcome; pt has family concerns and asks for prayers; Pastoral Care Visit Length : 15 minute(s) Sam Lua - 09/08/2024 10:05 EST Digitally Signed by Sam Lua on 09/08/2024 10:05 AM [facility]03-05-2025 Note Date of Service September 08, 2024 Subjective The patient was sitting in bed upon examination. Patient denies any chest pain, shortness of breath, dizziness, lightheadedness, nausea or vomiting, or calf pain. No adverse overnight events. Pain has been controlled on medications. Patient overall appears to be doing well. She does have history ofnausea and was given scopolamine patch by anesthesia. She does have some dry mouth but denies any dizziness or lightheadedness. No nausea at this time. Objective Vitals and Measurements T: 36.6 C (Oral) TMIN: 36.1 C (Axillary) TMAX: 36.8 C (Oral) HR: 52 (Monitored) RR: 16 BP: 123/58 SpO2: 96% HT: 152.4 cm WT: 73.5 kg BMI: 31.65 Intake and Output 7AM Yesterday to 7AM Today Last 24 hours Intake Medication 1443.50 Administration Information 1052.88 Oral Intake 240.00 Supplement Intake 180.00 Output Urine Voided 200.00 Urine Count 4.00 Total Summary Total Intake 2916.38 Total Output 200.00 Fluid Balance 2716.38 Physical Exam Vital signs stable, afebrile SCD's and JUDY Hose in place bilaterally Patient is able to plantarflex and dorsiflex actively Sensation is intact to saphenous, sural, superficial and deep peroneal, and tibial distribution Dressings are clean dry and intact Negative signs and symptoms of DVT, negative Homans bilaterally Weight Dosing Weight: 73.5 kg (09/07/24) Dosing Weight: 73.5 kg (09/07/24) Medications Medications (20) Active Scheduled: (11) acetaminophen 500 mg Tablet 1,000 mg 2 tab(s), Oral, q6h [place] Thyroid 15mg 15 mg, Oral, qDayAC aspirin 81 mg EC 81 mg 1 tab(s), Oral, BIDM atorvastatin 10 mg tablet 10 mg 1 tab(s), Oral, qDay docusate sodium 100 mg Capsule 100 mg 1 cap(s), Oral, BID docusate-senna (Senokot S) 50 mg-8.6 mg Tablet 2 tab(s), Oral, BID famotidine 20 mg tablet 20 mg 1 tab(s), Oral, qDay levothyroxine 50 mcg tablet 25 mcg 0.5 tab(s), Oral, qDayAC magnesium hydroxide 8% Suspension 30 mL UD 30 mL, Oral, Daily multivitamin (Myadec) with minerals Therapeutic Multiple Vitamins with Minerals Tablet 1 tab(s), Oral, qDayM Normal Saline Injection 1000 mL * Bolus * 1,000 mL, IV Bolus, Once Continuous: (0) PRN: (9) acetaminophen 325 mg Tablet 650 mg 2 tab(s), Oral, q4h diphenhydramine 25 mg tablet 25 mg 1 tab(s), Oral, q6h diphenhyDRAMINE 50 mg/mL (1 mL) INJ 25 mg 0.5 mL, IV Push, q6h morphine 2 mg/mL 1 mL syringe 2 mg 1 mL, IV Push, q1h ondansetron 2 mg/ 1 mL 2 mL INJ 4 mg 2 mL, IV Push, q8h oxycodone 5 mg tablet (immediate release) 10 mg 2 tab(s), Oral, q4h oxycodone 5 mg tablet (immediate release) 5 mg 1 tab(s), Oral, q4h prochlorperazine 10 mg/2 mL vial 5 mg 1 mL, IV Push, q6h sodium biphosphate-sodium phosphate 19 gm-7 gm Enema 133 mL, Rectal, qDay Lab Results 09/08 05:20 WBC: 18.4 H Hgb: 11.7 L Hct: 35.0 Platelet: 266 Neutrophil %: 85.1 H Glucose Level: 113 Sodium Level: 137 Potassium Level: 5.0 BUN: 32 H Creatinine Lvl (s): 1.15 H EKG No qualifying data available. Assessment/Plan 1. Status post robotic assisted right total knee arthroplasty postop day #1 2. Continue pain medications: Tylenol and oxycodone. Meloxicam has been discontinued at this point due to her elevated kidney function and decreased GFR. We [facility]. I would defer to primary care provider if she is able to resume her meloxicam based on labs. 3. DVT prophylaxis: Take 81 mg aspirin twice daily with food for 4 weeks postoperatively for DVT prophylaxis. Patient denies past history of DVT or pulmonary embolism. 4. Physical therapy: Weightbearing as tolerated with walker 5. H & H: 11.7/35.0, asymptomatic. Postoperative drop in hemoglobin from surgery without intraoperative complications. At this time there is no need for treatment. 6. Reactive Leukocytosis: currently 18.4, afebrile. Patient did receive decadron intra-operatively.No clinical signs of infection. 7. Encouraged incentive spirometry 8. Continue postoperative medical management per medicine: Case has been discussed with medicine about the kidney function. Appreciate recommendations. Plan will be for patient to follow-up in 1 weekwith primary care provider with repeat labs. We are avoiding nonsteroidal anti-inflammatories at this time. Patient is aware. Defer to primary care provider for resuming any anti- inflammatories afterrepeat labs. 9. Postoperative constipation: Discussed with the patient to continue stool softener until first bowel movement. After first bowel movement patient can then take as needed. They were also instructed that if they are not able to have a bowel movement within 3 days they are to contact our office for change of medication. Patient voiced understanding. 10. Disposition: Plan will be for probable discharge home this afternoon. Patient is doing well from orthopedic standpoint. As long as patient is cleared from medicine plan will be for discharge home. Patient has outpatient physical therapy established. She will follow-up per postoperative instructions. She would like her medications E scribed to [facility] in [facility]. Discussed with the patient removing the scopolamine patch at home. She should not touch the scopolamine patch with her bare hand. I would recommend using a glove and remove on morning. She should wash her hands thoroughly after removal. She voiced understanding. I will be in contact with medicine with regards to dis charge home this afternoon. Lab order will be placed on chart for patient to follow-up in 1 week with the primary care provider. Care management team currently involved for assisting on those appointments. I have reviewed the [place] Automated Rx Reporting System (OARRS) report for this patient for refill pattern and other prescriber involvement as part of the appropriate surveillance for the provision ofacute and chronic controlled medications. The report was requested and reviewed on the date of thisentry, and was considered in the prescribing process This dictation was created using voice recognition software. Phonetic and/or grammatical errors mayexist. Digitally Signed by SAM ISABEL PA-C on 09/08/2024 09:06 AM [facility]03-04-2025 Note* Exam Date Time Procedure Performing Provider Status 09/07/24 2:50 PM US Anesthesia Block Auth ( Verified) [id number] ORIGINAL Images acquired, not reported on this accession number. [facility]03-04-2025 Note* Exam Date Time Procedure Performing Provider Status 09/07/24 8:50 AM XR Knee 1 or 2 Views PRASHANT Landin MD; Auth (Verified) [id number] ORIGINAL HISTORY: Postop COMPARISON: No FINDINGS: There is an arthroplasty in near anatomic alignment. There is no radiographic evidence of loosening or failure of hardware. There are skin maximino and there is gas in the joint space and in the soft tissues. IMPRESSION: Arthroplasty with immediate postoperative changes. Interpreted by: Prashant Cedeno MD Preliminary Report By: Prashant Cedeno MD Electronically signed By Prashant Cedeno MD Dictated Date: 09/07/2024 8:57:28 AM Prelim Date: 09/07/2024 8:58:07 AM Sign Date: 09/07/2024 8:58:07 AM Ordering Provider: [facility]03-04-2025 Anesthesiology Consult note Patient: KIM MOSQUERA Age: 64 years Sex: Female : 1960 Associated Diagnoses: None Author: FAM GANDHI APRN-KELLY Preoperative Information Time of last food or liquid consumption: 09/07/2024 00:00:00 Anesthesia history Patient's history: nausea and vomiting with anesthesia. Family's history: negative. Review of Systems Ear/Nose/Mouth/Throat: Negative. Respiratory: Negative. Cardiovascular: htn. Gastrointestinal: obese. Genitourinary: Negative. Endocrine: hypothyroid. Musculoskeletal: OA. Integumentary: Negative. Neurologic: Negative. Health Status Allergies: Allergic Reactions (Selected) Severity Not Documented Hydroxychloroquine- Rash. Sulfa drug- Nausea. Vicodin- Nausea., Allergies (3) ActiveSeverityReaction sulfa drugNausea hydroxychloroquineRash VicodinNausea Current medications: (Selected) Inpatient Medications Ordered Bicitra: 30 mL, Oral, PREOP pharm LR 1,000 mL: 20 mL/hr, Intravenous Naropin 25 mg + Toradol 15 mg + morphine 2.5 mg + EPINEPHrine 0.3 m mg, 5 mL, mL/hr, Other, PREOP pharm Naropin 25 mg + Toradol 15 mg + morphine 2.5 mg + EPINEPHrine 0.3 m mg, 5 mL, mL/hr, Other, PREOP pharm Zofran ( PACU ): 4 mg, 2 mL, IV Push, AsDirected, PRN: Nausea/Vomiting morphine ( PACU ): 2 mg, 1 mL, IV Push, q5min, PRN: Pain, scale 4-6 tranexamic acid 1 g / 100 mL 0.7% NaCl PMX: 1 gram(s), 100 mL, 300 mL/hr, IV Piggyback, AsDirected Documented Medications Documented [place] Thyroid 15 mg oral tablet: 15 mg, 1 tab(s), Oral, qDayAC, 0 Refill(s) Probiotic: 0 Refill(s) Qnasl 80 mcg/inh nasal spray: 2 spray(s), Intranasal, qDay, in each nostril, 8.7 gram(s), 0 Refill(s) Semaglutide 5mg/ml Inj 4ml vial (20mg): Inject 0.4ml subcutaneously once weekly levothyroxine 25 mcg (0.025 mg) oral tablet: 25 mcg, 1 tab(s), Oral, qDayAC, 0 Refill(s) magnesium (as citrate) 85 mg oral tablet, chewable: 85 mg, 1 tab(s), Oral, qDay, 60 tab(s), 0 Refill(s) meloxicam 7.5 mg oral tablet: 7.5 mg, 1 tab(s), Oral, qDay, Take with food/milk, 30 tab(s), 0 Refill(s) pravastatin 20 mg oral tablet: 20 mg, 1 tab(s), Oral, qHS, 0 Refill(s) spironolactone 50 mg oral tablet: 50 mg, 1 tab(s), Oral, qDay, Take with food, 0 Refill(s), Medications (7) Active Scheduled: (4) citric acid-sodium citrate 334 mg-500 mg/5 mL (30 mL) Sangeeta UD 30 mL, Oral, PREOP pharm ropivacaine 25 mg + ketorolac 15 mg + morphine 2.5 mg + epinephrine 0.3 mg 25 mg 5 mL, Other, PREOPpharm ropivacaine 25 mg + ketorolac 15 mg + morphine 2.5 mg + epinephrine 0.3 mg 25 mg 5 mL, Other, PREOPpharm tranexamic acid PMX 1 gram(s) 100 mL, IV Piggyback, AsDirected Continuous: (1) Lactated Ringers 1,000 mL 1,000 mL, Intravenous, 20 mL/hr PRN: (2) morphine 2 mg/mL 1 mL syringe 2 mg 1 mL, IV Push, q5min ondansetron 2 mg/ 1 mL 2 mL INJ 4 mg 2 mL, IV Push, AsDirected Problem list: Active Problems (4) Hyperlipidemia Hypertension Hypothyroidism Osteoarthritis Histories Past Medical History: No active or resolved past medical history items have been selected or recorded. Family History: Breast cancer Sister Hypertension Mother Father Diabetes Father Procedure history: Total hip replacement ([id number]) in the month of 03/2024 at 63 Years. Comments: 08/16/2024 12:06 KEON Mandujano LEFT AT [facility] Blepharoplasty ([id number]). section ([id number]). Colonoscopy ([id number]). Breast reduction ([id number]). Social History: Social & Psychosocial Habits Alcohol 08/16/2024 Use: Never Substance Abuse 08/16/2024 Use: Never Tobacco 08/16/2024 Tobacco Use: Never (less than 100 in l Home/Environment 08/16/2024 Domestic Concerns None Lives In 1st floor bathroom, Multilevel home Spouse Name DOMO Marital Status of Patient if Patient Independent Adult: Nutrition/Health 08/16/2024 Type of diet: Regular Eating Difficulties None Physical Examination Vital Signs 09/07/2024 7:30 EST Heart Rate Monitored 59 bpm bpm Respiratory Rate - Anes 11 br/min br/min Systolic Blood Pressure Non-Invasive 82 mmHg mmHg Diastolic Blood Pressure Non-Invasive 42 mmHg mmHg 09/07/2024 7:26 EST Systolic Blood Pressure Non-Invasive 81 mmHg mmHg Diastolic Blood Pressure Non-Invasive 39 mmHg mmHg 09/07/2024 7:25 EST Heart Rate Monitored 60 bpm bpm Respiratory Rate - Anes 11 br/min br/min 09/07/2024 7:21 EST Systolic Blood Pressure Non-Invasive 92 mmHg mmHg Diastolic Blood Pressure Non-Invasive 33 mmHg mmHg 09/07/2024 7:20 EST Heart Rate Monitored 76 bpm bpm Respiratory Rate - Anes 0 br/min br/min Systolic Blood Pressure Non-Invasive 154 mmHg mmHg Diastolic Blood Pressure Non-Invasive 122 mmHg mmHg 09/07/2024 7:15 EST Heart Rate Monitored 65 bpm bpm Respiratory Rate - Anes 0 br/min br/min 09/07/2024 7:10 EST Respiratory Rate - Anes 0 br/min br/min Systolic Blood Pressure Non-Invasive 156 mmHg mmHg Diastolic Blood Pressure Non-Invasive 69 mmHg mmHg 09/07/2024 7:06 EST Systolic Blood Pressure Non-Invasive 146 mmHg mmHg Diastolic Blood Pressure Non-Invasive 73 mmHg mmHg 09/07/2024 5:52 EST Temperature Temporal Artery 37.1 DegC Peripheral Pulse Rate 58 bpm LOW Respiratory Rate 22 br/min HI Systolic Blood Pressure Non-Invasive 143 mmHg HI Diastolic Blood Pressure Non-Invasive 67 mmHg Vital Signs (last 24 hrs) Last Charted Temp Yoewvmyu04.1 DegC (SEP 07 05:52) Heart Rate Olrrjsbmw30 bpm (SEP 07 07:30) SBP82 mmHg (SEP 07 07:30) DBP42 mmHg (SEP 07 07:30) Measurements from flowsheet : Measurements 09/07/2024 5:52 EST Height 152.4 cm Admission Weight 73.5 kg [place] Body Weight 45.50 kg Admission Body Mass Index 31.65 m2 Pain assessment: Pain Assessment 09/07/2024 6:20 EST Primary Pain Intensity 0 09/07/2024 5:52 EST Primary Pain Intensity 0 Pain Scale Type 0-10 Pain scale . General: Alert and oriented. Airway: Normal temporomandibular joint mobility. Mallampati classification: II (soft palate, fauces, uvula visible). Head: Normocephalic. Dentition Evaluation: Own teeth. Neck: Supple. Respiratory: Lungs are clear to auscultation. Cardiovascular: Normal rate. Heart Sounds: Normal. Gastrointestinal: Soft. Musculoskeletal Normal range of motion. Integumentary: Intact. Neurologic: Alert, Oriented. Review / Management Results review: No qualifying data available , Lab results 09/07/2024 7:38 EST SN - Implant - Implant/Explant Implant SN - Implant - Implant/Explant Implant SN - Implant - Implant/Explant Implant SN - Implant - Implant/Explant Implant 09/07/2024 7:37 EST SN - CO - Medication SODIUM CHLORIDE 0.9% 50ML SN - CO - Medication SODIUM CHLORIDE 0.9% 50ML SN - CO - Dose 40 mL SN - CO - Dose 60 mL SN - CO - Route of Administration Local SN - CO - Route of Administration Local SN - CO - By (Single) SN - CO - By (Single) SN - CO - By (Single) SN - CO - By (Single) 09/07/2024 7:35 EST SN - Proc - Anesthesia Type Spinal SN - Proc - Actual Procedure ROBOTIC ASSISTED RIGHT TOTAL KNEE ARTHROPLASTY 09/07/2024 7:35 EST SN - Irl - Irrigant Sterile Water SN - Irl - Irrigant Normal Saline SN - IrI - Volume In 450 mL SN - IrI - Volume In 500 mL SN - Irl - Additive IRRIGATION CHG 0.05% IRRISEPT 12/CA [id number] SN - Irl - Additive BETADINE (POVIDONE IODINE) SOLUT SN - IrI - Volume Out 450 mL SN - IrI - Volume Out 500 mL 09/07/2024 7:35 EST SN - SP - Prep Agents Chloraprep SN - SP - HR - Method N/A 09/07/2024 7:32 EST SN - PP - Body Position Supine Standard Intra-op 09/07/2024 7:30 EST SN - CTm - Surgery Start 09/07/2024 7:30 09/07/2024 7:30 EST SN - PTCare - Anti-thromboembolism Claudia Sequential Compression Device (SCD) 09/07/2024 7:30 EST SN - Assess - LOC Alert SN - Assess - Orientation Oriented X 3 SN - Assess - Post-op Skin Integrity Intact/Dry 09/07/2024 7:30 EST Heart Rate Monitored 59 bpm bpm Respiratory Rate - Anes 11 br/min br/min Systolic Blood Pressure Non-Invasive 82 mmHg mmHg Diastolic Blood Pressure Non-Invasive 42 mmHg mmHg Oxygen Saturation 100 % % SN - CTm - Surgery Start Surgery Start acetaminophen Begin Bag 100 mL mg 09/07/2024 7:28 EST SN - GCD - Post-operative Diagnosis UNILATERAL PRIMARY OSTEOARTHRITIS, RIGHT KNEE; VARUS DEFORMITY, NOT ELSEWHERE CLASSIFIED, RIGHT KNEE SN - GCD - Case Level Level 6 09/07/2024 7:27 EST SN - Cul - Culture Type No Specimen per Surgeon 09/07/2024 7:26 EST SN - CAt - Case Attendee SN - CAt - Case Attendee SN - CAt - Case Attendee SN - CAt - Case Attendee SN - CAt - Case Attendee SN - CAt - Case Attendee SN - CAt - Case Attendee SN - CAt - Case Attendee SN - CAt - Case Attendee SN - CAt - Case Attendee SN - CAt - Case Attendee SN - CAt - Case Attendee SN - CAt - Case Attendee SN - CAt - Case Attendee SN - CAt - Role Performed Primary Surgeon SN - CAt - Role Performed BUSINESS SYSTEMS MANAGER SN - CAt - Role Performed Tobacco Grower 1 SN - CAt - Role Performed Scrub 1 SN - CAt - Role Performed Ski Lift Mechanic 1 SN - CAt - Role Performed Binding Cementer French Cord SN - CAt - Role Performed Physician Wire Sawyer 09/07/2024 7:26 EST Systolic Blood Pressure Non-Invasive 81 mmHg mmHg Diastolic Blood Pressure Non-Invasive 39 mmHg mmHg 09/07/2024 7:25 EST Heart Rate Monitored 60 bpm bpm Respiratory Rate - Anes 11 br/min br/min Oxygen Saturation 100 % % tranexamic acid 1 gram(s) gram(s) 09/07/2024 7:21 EST Systolic Blood Pressure Non-Invasive 92 mmHg mmHg Diastolic Blood Pressure Non-Invasive 33 mmHg mmHg 09/07/2024 7:20 EST Heart Rate Monitored 76 bpm bpm Respiratory Rate - Anes 0 br/min br/min Systolic Blood Pressure Non-Invasive 154 mmHg mmHg Diastolic Blood Pressure Non-Invasive 122 mmHg mmHg Oxygen Saturation 89 % % dexAMETHasone 10 mg mg 09/07/2024 7:15 EST Heart Rate Monitored 65 bpm bpm Respiratory Rate - Anes 0 br/min br/min 09/07/2024 7:14 EST bupivacaine 1.6 mL mL 09/07/2024 7:10 EST Respiratory Rate - Anes 0 br/min br/min Systolic Blood Pressure Non-Invasive 156 mmHg mmHg Diastolic Blood Pressure Non-Invasive 69 mmHg mmHg 09/07/2024 7:06 EST Systolic Blood Pressure Non-Invasive 146 mmHg mmHg Diastolic Blood Pressure Non-Invasive 73 mmHg mmHg 09/07/2024 7:04 EST SN - CTm - Anesthesia Start Time Anesthesia Start cefazolin 2 gram(s) gram(s) Sodium Chloride 0.9% 100 mL mL 09/07/2024 6:50 EST dexAMETHasone 4 mg mg ROPivacaine 100 mg mg 09/07/2024 6:46 EST epinephrine-lidocaine 1 mL mL 09/07/2024 6:45 EST fentaNYL 50 mcg mcg midazolam 1 mg mg 09/07/2024 6:28 EST SN - Preop - CTm Pt in SDS Room 09/07/2024 5:41 SN - Preop - CTm Pt Ready for OR/Proced 09/07/2024 6:18 09/07/2024 6:20 EST Primary Pain Intensity 0 Wrist Left 20 gauge Peripheral IV Activity: Insert new site Peripheral IV Dressing Condition: Clean, Dry, Intact Peripheral IV Dressing Activity: Transparent dressing Peripheral IV Line Status/Patency: Continuous infusion Peripheral IV Site Condition: No complications Peripheral IV Equipment: Extension set Peripheral IV Number of Attempts: 1 meloxicam 15 mg mg oxyCODONE 10 mg mg 09/07/2024 6:19 EST famotidine 20 mg mg Lactated Ringers Injection 1,000 mL mL 09/07/2024 5:52 EST Height 152.4 cm Admission Weight 73.5 kg [place] Body Weight 45.50 kg Admission Body Mass Index 31.65 m2 Temperature Temporal Artery 37.1 DegC Peripheral Pulse Rate 58 bpm LOW Respiratory Rate 22 br/min HI Systolic Blood Pressure Non-Invasive 143 mmHg HI Diastolic Blood Pressure Non-Invasive 67 mmHg Primary Pain Intensity 0 Pain Scale Type 0-10 Pain scale Heart Rhythm Regular Dorsalis Pedis Pulse, Left 2+ Normal Dorsalis Pedis Pulse, Right 2+ Normal Respirations Unlabored Respiratory Pattern Regular All Lobes Breath Sounds Clear Oxygen Therapy Room air Oxygen Saturation 97 % Abdomen Description Non-distended, Soft Skin Description [place] Skin Temperature Warm Skin Integrity Intact Mucous Membrane Color [place] Neurological Symptoms Patient denies Characteristics of Speech Clear Level of Consciousness Alert Strength All Extremities Strong Affect/Behavior Appropriate, Calm, Cooperative Orientation Oriented x 4 Sequential Compression Device left knee high applied/on Antiembolism Stocking On/Re-applied left thigh high Standard Safety ID band on, Allergy Band on, Call device within reach, Bed in low position, Wheels locked, Non-Slip footwear 09/07/2024 5:48 EST Designated Person #1 We May Share PHI DOMO [phone] Designated Person #1 Relationship Spouse Privacy Restrictions Requested None Status No, per patient Sensory Deficits None Sleep Apnea Snore Yes Sleep Apnea Tired No Sleep Apnea Obstruction No Sleep Apnea Pressure Yes Sleep Apnea BMI No Sleep Apnea Age Yes Sleep Apnea Neck No Sleep Apnea Gender No Sleep Apnea Score 3 Diagnosed With Sleep Apnea No Advanced Directives Yes Advance Directive Type [place] Durable Power [facility] [place] [facility] [place] Declaration (Living Will) Advance Directive Location Indicates that Robyn has been given copy Infectious Disease Symptoms Patient states no symptoms Infectious Disease Recent Exposure No Alcohol and Drug Use No Employee of Institutional Living No Health Care Employee No History of Exposure to TB No History of Positive Chest X-Ray for TB No History of Positive TB Skin Test No Homeless No Known Immunosuppression No Recent Immigrant No Resident of Institutional Living No Bloody Sputum No Fatigue No Fever No Loss of Appetite No Night Sweats No Persistent Cough > 3 Weeks No Weight Loss No Pre-Op Patient Education NPO after midnight, No smoking after midnight, No makeup, No jewelry, Aware of surgery location, Pre-op education done, 1 bottle CHG wash with instructions given, Instructed to take ordered medications, Anesthesia block education provided SN - Preprocedure Comments Spoke with patient, Verbalizes/Nonverbally indicates understanding, Other: armour thyroid. scop patch -ac Barriers to Learning None evident Teaching Method Explanation Preferred Spoken Language Yemeni Preferred Written Language Yemeni Teaching Evaluation Verbalizes/Nonverbally indicates understanding Total Joint Book Given Yes Safety Brochure Information Reviewed Unable to complete Robyn Johnson Video Viewed No Patient's Current Physicians Patient's Current Physicians Discharge To, Anticipated Home with family care Prev Test Positive/Diagnosis w/COVID-19 No Current Quarantine/Isolated any Illness No Any Contact with Sick Animals/Birds No Traveled Anywhere in Last 30 Days Yes Travel Where Within [facility](s) [place], [place] Lost Weight Unintentionally Recently No Eat Poorly Due to Decreased Appetite No Total MST Score 0 No Personal Devices, Patient Valuables Glasses Anesthesia/Transfusions Prior anesthesia, Prior anesthesia reaction Type of Anesthesia Reaction N/V Admission Note-Nursing Same Day Patient History 09/07/2024 5:42 EST Urinary Elimination Voiding, no difficulties IV Present Present Allergies Yes 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 Consent Form Signed Yes Patient Dressed In Hospital gown CHG Preoperative Wash/Wipe Night before procedure, Day of procedure Preop Nasal Swab Povidone-Iodine CHG Skin Prep Completed for Eligible Surgery History & Physical Update On Chart Yes History & Physical On Chart Yes Obstructive Sleep Apnea Assess Completed Yes Belongings At Bedside Coat, Glasses, Pants, Shirt, Shoes Personal Home Medications Received No home medications were brought in NPO Status Maintained Allergy Band on and Verified Yes Patient ID Band on and Verified Yes Implants Verified Yes Pacemaker/AICD Verified Yes Site Verified by Patient/Family Yes Anesthesia Consent Signed Yes Blood Consent Signed Yes Last Fluid Intake 09/06/2024 23:30 Last Food Intake 09/06/2024 21:00 . Assessment and Plan [place] [employer] Anesthesiologists (ASA) physical status classification: Class III. Anesthetic Preoperative Plan Premedication: intravenous. Anesthetic technique: Spinal. Induction: intravenously. Maintenance airway: FM. Regional: Adductor Canal Block. Postoperative pain management: Per surgeon. Informed consent: signed by patient. Digitally Signed by FAM GANDHI on 09/07/2024 07:41 AM [facility]02-10-2025 Note* Exam Date Time Procedure Performing Provider Status 08/16/24 12:[address] Knee w/o Contrast Right MELANY, DANIELLE ONEAL MD; Auth (Verified) [id number] ORIGINAL EXAMINATION: CT OF THE RIGHT KNEE WITHOUT CONTRAST 08/16/2024 12:44 pm TECHNIQUE: CT of the right knee was performed without the administration of intravenous contrast. Multiplanar reformatted images are provided for review. Automated exposure control, iterative reconstruction, and/or weight based adjustment of the mA/kV was utilized to reduce the radiation dose to as low as reasonably achievable. MA KO protocol was performed with axial images through the right hip and right ankle. COMPARISON: None. HISTORY ORDERING SYSTEM PROVIDED HISTORY: Reason for Exam: UNILATERAL PRIMARY OSTEOARTHRITIS, RIGHT KNEE Chronic arthritis rt knee. TARYN protocol. FINDINGS: There is no acute fracture or dislocation. There is no suspicious lytic or blastic osseous lesion. There is no aggressive periosteal reaction. Mild right femoroacetabular joint space narrowing. The pelvis is only partially visualized. Small knee joint effusion with calcified intra-articular bodies measuring up to 1 cm. Tricompartmental osteoarthritis of the right knee which is severe in the medial compartment with asymmetric joint space narrowing, [id number], subchondral cysts and marginal osteophyte formation. Spurring of the tibial spines and intercondylar notch. Subchondral cystic change in the lateral femoral condyle. Lateral coronal tibiofemoral subluxation. Quadriceps enthesopathy. There is no evidence of solid or cystic soft tissue mass. Limited evaluation of the neurovascular structures lack contrast. IMPRESSION: Tricompartmental osteoarthritis of the right knee which is severe in the medial compartment. Small knee joint effusion with calcified intra-articular bodies measuring up to 1 cm. Additional incidental findings as above. Interpreted by: Caterina Gomez Preliminary Report By: Caterina Gomez Electronically signed By Caterina Gomez Dictated Date: 08/16/2024 12:48:48 PM Prelim Date: 08/16/2024 12:52:03 PM Sign Date: 08/16/2024 12:52:03 PM Ordering Provider: KWAKU ARTEAGA [facility]05-08-2023 NotePap Smear Specimen AdequacyMay 2022 5:06pmComment.Satisfactory for evaluation. Endocervical and/or squamous metaplasticcells (endocervical component)are present.[facility] INTERFACED A#[id number] on above:Satisfactory for evaluation. Endocervical and/or squamous metaplasticcells (endocervical component)are present.11-11-2022 NotePap Smear Specimen AdequacyMay 2022 5:06pmComment.Satisfactory for evaluation. Endocervical and/or squamous metaplasticcells (endocervical component)are present.[facility] INTERFACED A#[id number] on above:Satisfactory for evaluation. Endocervical and/or squamous metaplasticcells (endocervical component)are present.Evaluation + Plan note Future Appointments [facility] Evaluation noteNo assessment information available Work Phone: Evaluation note* Diagnosis Onset Date Resolution Status Obesity acute Work Phone: Evaluation note* Diagnosis Onset Date Resolution Status Encounter for routine gynecological examination noneactive Work Phone: Evaluation note* Diagnosis Onset Date Resolution Status Admit Date Encounter for routine gynecological examination noneactive December 062024 9:00am [facility] Work Phone: Hospital course Narrative No data available for this section [facility] Hospital Discharge instructions No data available for this section [facility] Progress note No data available for this section [facility] Progress note Author Allyn Pitts [facility] Note Date/Time December 29, 2024 9:50 am [facility] [address], [address] [place] [address] OFFICE VISIT Date of Service: 12/29/24 MR#: [id number] Acct: [id number] Name: KIM MOSQUERA Rep #: [id number] : 1960 Provider: HÉCTOR Pitts Age/Sex: 64/F [place] [facility] [place] Status: Signed with Addenda ADDENDUM by HÉCTOR Pitts on 12/29/24 at 0950 HPI HPI Narrative: Patient reports no issues or concerns today other than weight gain. She is currently on semiglutide (prescribed elsewhere). Will be stopping this after this month. She is concerned she will gain the weight back. 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: No Is patient in pain?: No Allergies hydroxychloroquine Adverse Reaction (Severe, Verified 12/29/24 09:06) rash Sulfa (Sulfonamide Antibiotics) Adverse Reaction (Mild, Verified 12/29/24 09:06) Vomiting Medications ?Medication ?Instructions ?Recorded ?Confirmed ?Type beclomethasone dipropionate 80 2 inh intranasal QDAY 1 08/24/16 12/29/24 History mcg/actuation nasal HFA inhaler (QNASL) thyroid (pork) 15 mg tablet 15 mg PO QDAY #90 tabs 12/29/24 Rx ([facility] Thyroid) ascorbic acid 125 mg-collagen, cap PO 06/22/20 5 History hydrolyzed 740 mg capsule (Collagen Plus Vitamin C) levothyroxine 25 mcg tablet 25 mcg PO DAILY 06/22/20 0 12/29/24 History magnesium 250 mg tablet 500 mg PO DAILY 06/22/20 History allergy shots sublingual 10/29/21 12/29/24 History meloxicam 7.5 mg tablet (Mobic) 7.5 mg PO QDAY PRN 12/29/24 History pravastatin 80 mg tablet 20 mg PO QHS 10/29/21 History sodium chloride 0.65 % nasal spray 1 spray intranasal BID 10/29/21 12/29/24 History aerosol (Saline Nasal) spironolactone 50 mg tablet mg PO 12/29/24 12/29/24 Hi story Is last menstrual period known: No Post menopausal: Yes Patient : No : No [facility] Medical History (Updated 12/29/24 @ 09:10 by Deysi Amaya) Cataracts, both eyes History of sinus problem history of right breast mass removal & reduction History of abnormal cervical Pap smear Arthritis History of high cholesterol History of high blood pressure Surgical History History of left hip replacement H/O abdominoplasty Bone spur of finger IP joint History of endometrial ablation History of delivery History of foot surgery History of left knee surgery Family History Father , Parkinsons, arthritis, dementia No problems noted. Mother Hypertension Arthritis High cholesterol Sister Breast cancer, Onset Age: 66 Social History household members: spouse housing: house current occupational status: retired Smoking Status: Never smoker alcohol intake: never substance use type: does not use what type of physical activity do you participate in: aerobics and weight training frequency: 5-6 times per week seatbelt use: always do you feel safe at home: Yes additional social history: Spouse [place] History 3 Elective abortions Hx Para 3 Spontaneous abortions Hx # Term Pregnancies Ectopic pregnancies Hx # Pregnancies Multiple births # of living children Past Pregnancies Del. Date Name GA/Weeks Outcome Route Bth Weight Gen Labor Lgth Anesthesia Del Locatn Provider FOB Unknown 1983 Talia Unknown 1985 Alvaro Unknown 1987 [facility] Encounter for routine gynecological examination Details: KIM MOSQUERA is a 64 year old who presents for annual exam. She reports her Last PAP: 2022 History of abnormal PAP: Yes, 25-30yrs ago Last mammogram: 2023, scheduled for today History of abnormal mammogram: Yes- years ago, benign Colon cancer screenin- Normal Other preventative health care screenings: PCP ROS Const Constitutional: Denies chills, fatigue, fever(s), headache(s) or weight loss Eyes Eyes: Denies change in vision ENT ENT: Denies dizziness Resp Resp: Denies cough GI GI: Denies abdominal pain, constipation or nausea : Denies difficulty voiding, dysuria, hematuria, nipple discharge, pelvic pain, prolapse symptoms, urinary incontinence, vaginal discharge, vaginal dryness, vaginal odor or vaginal pruritus Skin Skin/Breast: Denies alopecia, rash, breast mass, breast pain, breast skin changes or nipple discharge Neuro Neuro: Denies dizziness Psych Psych: Denies anxiety or depression Endo Endo: Denies cold intolerance, excessive sweating or heat intolerance Exam Const General: cooperative, healthy appearing, comfortable, no acute distress, well groomed and well hydrated Nutritional Appearance: well nourished Orientation: alert, awake and oriented x3 HENMT Head: normal to inspection and normocephalic Ears: hearing grossly normal bilaterally and external ears normal Nose: external nose normal Face and sinus: normal facial exam Eyes General: appearance normal, both eyes and all related structures Neck Neck: normal visual inspection, full ROM and no lymphadenopathy Thyroid: thyroid normal Chest Chest palpation & inspection: normal inspection of the chest Breast inspection: normal inspection of the breasts and normal inspection of theaxillae Breast palpation: normal palpation of the breasts, normal palpation of the axillae and no axillary lymphadenopathy Resp Effort & Inspection: normal respiratory effort, able to speak in complete sentences and symmetric chest movement GI Inspection: normal to inspection Palpation: soft and no hepatosplenomegaly General: bladder normal to palpation External Female Exam: normal external appearance and normal appearance of the urethra Urethra: normal appearance of the urethra Speculum Exam - Vagina: normal appearance of the vagina, normal vaginal discharge, no lesions and nontender Speculum Exam - Cervix: normal appearance of the cervix, no lesions and no masses Bimanual Exam- Vagina & Uterus: normal bimanual exam, uterine size normal, bladder normal to palpation, normal palpation and non-tender Bimanual Exam- Adnexa, other: normal adnexae, no masses, normal and non-tender Pelvic Support: normal Skin General: no rashes or lesions noted Neuro General: patient alert, patient awake, patient oriented x3 and moves all extremities Psych Appearance: grossly normal Mental Status: mental status grossly normal Affect: normal affect Speech and Movement: speech and movement normal Attitude: cooperative Coding Level of Care Code Established Pt Off vis,est,prev 65+yrs Patient Type Established Diagnoses Encounter for routine gynecological examination Z01.419 Assessment and Plan Assessment and Plan (1) Encounter for routine gynecological examination: Plan: Breast and pelvic exam complete. PAP due: UTD Mammogram due: orders placed to obtain--scheduled today Advised self breast exams monthly. Contraception: post menopausal. Advised incorporating healthy dietary choices such as increase in lean meats, fruits/vegetables, less processed food/sat fat/trans fats. Increase exercise to 30 minutes per day/5 days a week. This can include both weight bearing exercisesand/or brisk walking. Follow up with PCP for further preventative health screenings. 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 Call office sooner with questions or concerns. 12/29/24 0913 <Electronically signed by Allyn ANAYA> Date _ Allyn ANAYA Cosigner Signature: Date (if applicable) CC: ~ [facility] Work Phone: Reason for referral (narrative)No reason for referral information availableWGeorgetown [facility] Work Phone: Instructions Instruction Description Start Date CompletedPatient advised to follow-up with Primary Care Physician for BMI management. Advance Directives There may be information available, but it has not been provided by the sender. No Advanced Directives Records FoundNo Advanced Directives Records Found Assessments There may be information available, but it has not been provided by the sender. Review of System There may be information available, but it has not been provided by the sender. 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) Reason for Visit Encounter for routin e gynecological examination Chief Complaint 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 Reason for Visit Encounter for routin e gynecological examination Chief Complaint SCREENING E ORDER Chief Complaint E ORDER Chief Complaint Admit Date CBC AND BMP September 13, 2024 9:2 3am OA RT KN/RX HERE September 22, 2024 11: 30am Chief Complaint Admit Date CBC AND BMP September 13, 2024 9:2 3am OA RT KN/RX HERE November 03, 2024 12: 00pm Chief Complaint Admit Date CBC AND BMP September 13, 2024 9:2 3am OA RT KN/RX HERE November 03, 2024 12: 00pm 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) December 29, 2024 9:00 am Reason for Visit Admit Date Encounter for routine gynecological exam ination December 29, 2024 9:00am Chief Complaint Admit Date CBC AND BMP September 13, 2024 9:2 3am OA RT KN/RX HERE November 03, 2024 12: 00pm 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) December 29, 2024 9:00 am SCREENING December 29, 2024 10:1 3am Summary Purpose Additional Source Comments Goals (unrecognized section and content) Goals may be documented in a n alternate sectionGoals may be documented in an alternate sectionGoals may be documented in an alternate sectionGoals may be documented in an alternate sectionGoals may be documented in an alternate sectionGoals may be documented in an alternate sectionGoals may be documented in an alternate sectionGoals may be documented in an alternate section No data available for this section No data available for this section No data available for this sectionGoals may be documented in an alternate sectionGoals may be documented in an alternate sectionGoals may be documented in an alternate sectionGoals may be documented in an alternate sectionGoals may be documented in an alternate section Care Teams (unrecognized sec tion and content) Team Status: Active Member Role Status Dates Dr. Fer Prado MD Family Provider Active Dr. Fer Prado MD Primary Care Provider Active Team Status: Inactive Member Role Status Dates Dr. Fer Prado MD Primary Care Provider, Referring P rovider Active Ruchi Holman GENERALIST, GENERALIST-C Attending Provider Active Team Status: Inactive Member Role Status Dates Dr. Fer Prado MD Primary Care Provider Active Ruchi Holman GENERALIST, GENERALIST-C Attending Provider, Referring Provider Active Team Status: Inactive Member Role Status Dates Dr. Fer Prado MD Primary Care Provider, Attending P rovider Active Team Status: Active Member Role Status Dates Dr. Fer Prado MD Primary Care Provider Active Team Status: Inactive Member Role Status Dates Dr. Fer Prado MD Primary Care Provider Active Start: June 14, 2024 End: June 14, 2024 Dr. James Flynn DPM Attending Provider Active Start: June 14, 2024 End: June 14, 2024 Dr. James Flynn DPM Referring Provider Active Start: June 14, 2024 End: June 14, 2024 Team Status: Inactive Member Role Status Dates Dr. Fer Prado MD Primary Care Provider Active Start: July 19, 2024 End: July 19, 2024 Dr. Fer Prado MD Attending Provider Active St art: July 19, 2024 End: July 19, 2024 Dr. Fer Prado MD Referring Provider Active St art: July 19, 2024 End: July 19, 2024 Team Status: Inactive Member Role Status Dates Dr. Fer Prado MD Primary Care Provider Active Start: August 05, 2024 End: August 05, 2024 Dr. Naveen Hong MD Attending Provider Active Start: August 05, 2024 End: August 05, 2024 Dr. Naveen Hong MD Referring Provider Active Start: August 05, 2024 End: August 05, 2024 Team Status: Inactive Member Role Status Dates Dr. Fer Prado MD Primary Care Provider Active Start: September 13, 2024 End: September 13, 2024 Ray Raul AGUIRRE PA-C Attending Provider Active Start: September 13, 2024 End: September 13, 2024 Ray Esrita AGUIRRE, PA-C Referring Provider Active Start: September 13, 2024 End: September 13, 2024 Team Status: Active Member Role Status Dates Dr. Fer Prado MD Primary Care Provider Active Start: September 22, 2024 Sam AGUIRRE PA-C Attending Provider Active Start: September 22, 2024 Ray Eshenaur PA, PA-C Referring Provider Active Start: September 22, 2024 Team Status: Inactive Member Role Status Dates Dr. Fer Prado MD Primary Care Provider Active Start: November 03, 2024 End: November 03, 2024 Ray Eshenaur PA, PA-C Attending Provider Active Start: November 03, 2024 End: November 03, 2024 Ray Eshenaur PA, PA-C Referring Provider Active Start: November 03, 2024 End: November 03, 2024 Team Status: Active Member Role Status Dates Dr. Fer Praod MD Primary Care Provider Active Start: November 04, 2024 Dr. Fer Prado MD Attending Provider Active St art: November 04, 2024 Dr. Fer Prado MD Referring Provider Active St art: November 04, 2024 Team Status: Inactive Member Role Status Dates Dr. Fer Prado MD Primary Care Provider Active Start: November 04, 2024 End: November 04, 2024 Dr. Fer Prado MD Attending Provider Active St art: November 04, 2024 End: November 04, 2024 Dr. Fer Prado MD Referring Provider Active St art: November 04, 2024 End: November 04, 2024 Team Status: Inactive Member Role Status Dates Dr. Fer Prado MD Primary Care Provider Active Start: December 29, 2024 End: December 29, 2024 Dr. Fer Prado MD Referring Provider Active St art: December 29, 2024 End: December 29, 2024 HÉCTOR Meyer Attending Provider Active Start: December 29, 2024 End: December 29, 2024 Team Status: Active Member Role/Relationship Status Dates Dr. Fer Prado MD Primary Care Provider Active Team Status: Inactive Member Role/Relationship Status Dates Dr. Fer Prado MD Primary Care Provider Active Start: September 13, 2024 End: September 13, 2024 Ray Eshenaur PA, PA-C Attending Provider Active Start: September 13, 2024 End: September 13, 2024 Ray Eshenaur PA, PA-C Referring Provider Active Start: September 13, 2024 End: September 13, 2024 Team Status: Inactive Member Role/Relationship Status Dates Dr. Fer Prado MD Primary Care Provider Active Start: November 03, 2024 End: November 03, 2024 Ray Eshenaur PA, PA-C Attending Provider Active Start: November 03, 2024 End: November 03, 2024 Sam AGUIRRE PA-C Referring Provider Active Start: November 03, 2024 End: November 03, 2024 Team Status: Inactive Member Role/Relationship Status Dates Dr. Fer Prado MD Primary Care Provider Active Start: November 04, 2024 End: November 04, 2024 Dr. eFr Prado MD Attending Provider Active St art: November 04, 2024 End: November 04, 2024 Dr. Fer Prado MD Referring Provider Active St art: November 04, 2024 End: November 04, 2024 Team Status: Inactive Member Role/Relationship Status Dates Dr. Fer Prado MD Primary Care Provider Active Start: December 29, 2024 End: December 29, 2024 Dr. Fer Prado MD Referring Provider Active St art: December 29, 2024 End: December 29, 2024 HÉCTOR Meyer Attending Provider Active Start: December 29, 2024 End: December 29, 2024 Team Status: Inactive Member Role/Relationship Status Dates Dr. Fer Prado MD Primary Care Provider Active Start: December 29, 2024 End: December 29, 2024 Dr. Fer Prado MD Attending Provider Active St art: December 29, 2024 End: December 29, 2024 Dr. Fer Prado MD Referring Provider Active St art: December 29, 2024 End: December 29, 2024 INFORMATION SOURCE (unrecogn ized section and content) DATE CREATED AUTHOR 09/21/2024 [facility] DATE CREATED AUTHOR AUTHOR'S ORGANIZ ATION 01/04/2025 [facility] FOR RECORDS PERTAINING TO PATIENTS WHO ARE [...] BE BASED ON THE PRIMARY CLINICAL RECORDS. [email or web address] provides no warranty or guarantee of the accuracy or completeness of information in this document.
[2025-02-12 10:51] LABS: Prothrombin Time (Protime)PT. 12.3 SECONDS (11.7-14.9)
[2025-02-12 11:27] LABS: AST(SGOT) 21 U/L (<=31); Alanine Aminotransfer ALT/SGPT 19 U/L (<=34); Albumin, Serum 4.6 g/dL (3.4-4.8); Alkaline Phosphatase 92 U/L (35-104); Anion Gap 10 (5-15); BUN 33 mg/dL (4-19); BUN/Creat Ratio 35.4 RATIO (10-20); Calcium,Total 9.7 mg/dL (7.6-11.0); Carbon Dioxide 23.7 mmol/L (21.0-32.0); Chloride 102 mmol/L (98-108); Globulin 3.2 g/dL (2.2-4.2); Glucose 100 mg/dL (70-99); Potassium 5.2 mmol/L (3.3-5.1)
[2025-02-12 11:28] LABS: Vitamin D,25 Hydroxy 66.6 ng/mL (30-100)
[2025-02-13 08:08] LABS: GGTP 20 IU/L (0-60)
== END 2025-02-12 23:59 | disposition home or self-care (01) ==
LOC: LAB 09:57
PROVIDERS: PCP Family Medicine; Referring Provider Family Medicine; Visit Provider Dermatology
DX: L64.8 Other androgenic alopecia (principal); K76.0 Fatty (change of) liver, not elsewhere classified; I10 Essential (primary) hypertension
CPT/HCPCS: 36415; 80053; 82306; 82977; 85610

== ENCOUNTER 2025-04-27 10:30 | Outpatient (RCR) | payer MEDICARE, OTHER, SELFPAY ==
--- NOTE | 2025-03-28 09:19 | HP.PTEVAL ---
Patient's Visit Information Visit Information Visit Information: KIM MOSQUERA is a 64 year old F referred to Physical Therapy by Dr. Rudy Jaimes MD with a diagnosis of Lumbar stenosis. Date of Evaluation: 03/24/25 Physical Therapist: Michael Castano DPT Visit Plan Frequency: 2x /Week Duration: 6 Weeks Plan: 1) Lumbar ROM into both flexion and extension 2) Neutral spine core strengthening 3) BLE strengthening Subjective Subjective: Pt reports with lumbar stenosis diagnosed around 10 years ago. Pt reports LBP for a little over a year and then had her L hip replaced about a year ago. Pt reports that long periods of standing as well as household activities like cleaning provoke the pain. Pt reports having a good pain tolerance and pushes through pain at times. Twisting, bending, and turning also really provoke pain. Pt reports that it's impacting her stamina and also has pain while exercising and walking. Pt reports that sitting down and resting alleviates the pain. Pt reports no sleep disturbances due to pain, but sometimes wakes up stiff. The pain is described like an ache and the pain is also in her groin and anterior thigh. Pt reports no tingling or numbness at this time, but does report getting muscle cramps in her legs weekly. Pt wants to get back to exercising normally and not stopping to rest with her activities, and that she is also planning a [place] trip that she wants to be able to do. Pt reports some L leg weakness as well. Pt reports a 0/10 pain here at rest and a 6/10 at its worst (when walking) Pain LBP: Pain Intensity (Out of 10): 0 Pain Intensity Range: 0 and 6 Objective Objective: POSTURE: Pt. has normal posture. Slight flexed posture. PALPATION: Pt. has some mild tenderness at lumbar spine, and L side of SI region. NEURO: normal. ROM: LUMBAR: flexion nil loss, ext min loss, SB nil loss bilat, rotaiton min loss bilat. Normal HS length MMT: Pt. has slight weakness in LLE, 4+/5 throughout. GAIT: Slight drop down onto L side during gait, no major antalgic pattern noted. Balance/Special Test Scores Oswestry Low Back Score: 6 Goals Goal 1:: Pt will ambulate 1000ft w/o pain in order to continue to maintain her personal exercise routine Goal Time Frame: 4-6 Weeks Goal 2:: Pt will increase L LE strength equal to R LE strength in order to improve functional mobility Goal 3:: Pt will be I w/HEP in order to further promote functional mobility Goal Time Frame: 4-6 Weeks Rehabilitation Potential Physical Therapy Diagnosis: Pt. has signs and symptoms consistent with lumbar stenosis. Pt. did not have any dural signs today. Pt. would benefit from PT to address her weakness in order to reduce stress to her lumbar spine with all functional mobility. Rehabilitation Potential: Excellent Anticipated Interventions Patient/Client Instruction: Educate patient on: Condition, Plan of Care, Risk Factors and Benefits of Fitness Program For the Purpose of:: To foster healthy habits, To improve decision making, To facilitate caregiver knowledge, To improve self management, To prevent re-injury and To improve ability to perform tasks related to life management Therapeutic Exercise to Include: Strength training, Power training, Postural training, Flexibilty training, Passive ROM, Active ROM and Dynamic Lumbar Stabilization For the Purpose of:: To decrease pain, To increase ROM, To improve nutrient delivery to tissue, To increase oxygenation perfusion, To improve muscle performance and motor function, To improve ability to perform ADL's and To increase tolerance to activity/condition/position Text: Thank you for the opportunity to evaluate your patient. For Medicare and Medicare HMO plans, please review the plan of care and approve it. It will need to be FAXED BACK to us at [phone] for Medicare purposes. For Medicare only, by signing this I certify the plan of care. Please let me know if there are questions or concerns regarding this plan of care. Physician Signature: Date:
== END 2025-04-27 19:00 | disposition home or self-care (01) ==
LOC: PT 10:30
PROVIDERS: PCP Family Medicine; Referring Provider Specialist; Visit Provider Specialist
DX: M48.061 Spinal stenosis, lumbar region without neurogenic claudication (principal)
CPT/HCPCS: 97110; 97161; 97530